=== PATIENT | female | born 1930 | race Caucasian/White ===

== ENCOUNTER → 2017-01-25 13:34 | Outpatient (CLI) | payer MEDICARE, OTHER ==
[2015-10-27 08:17] VITALS: BMI 21.0
[~2017-01-25 13:34] MED LIST: BABY ASPIRIN81 MG PO; BUMETANIDE0.5 MG PO; CARDURA2 MG PO; CEFUROXIME250 MG PO; CENTRUM SILVER1 TA1 PO; COLACE100 MG PO; CORDARONE200 MG PO; FERROUS SULFAT140 MG PO; K-TAB10 MEQ PO; KLOR-CON 1010 MEQ PO; LEVOTHROID50 MCG PO; LEVOTHYROXINE100 MCG PO; LEVOTHYROXINE112 MCG PO; LISINOPRIL5 MG PO; LORTAB 5/500 TA1 TA2 PO; MIRAPEX0.25 MG PO; MIRAPEX1 MG PO; MOBIC7.5 MG PO; MODURETIC 5/501 TAB PO; NEURONTIN 100100 MG PO; NITROSTAT0.4 MG SL; OMEPRAZOLE40 MG PO; OS-CAL500 MG PO; PACERONE200 MG PO; PRILOSEC20 MG PO; REGLAN10 MG PO; STOOL SOFTENER100 M1 PO; TOPROL XL25 MG PO; VIACTIV SOFT C1 EACH PO; VITAMIN D31000 UNIT PO; VITAMIN D3400 UNI1; ZOCOR40 MG PO
== END | disposition home or self-care (01) ==
LOC: D.US 13:30
DX: R60.0 Localized edema (principal)

== ENCOUNTER 2017-02-06 13:15 | Inpatient (IN) | payer MEDICARE, OTHER ==
[~2017-02-06] VITALS: Ht 157.5 cm; Wt 56.7 kg
--- NOTE | ~2017-02-06 | DS ---
PATIENT:CAITLIN CALIX :32 MEDICAL RECORD: [id number] DISCHARGE SUMMARY ADMISSION DATE: 02/06/17 DISCHARGE DATE: 02/10/17 DISCHARGE DIAGNOSES: 1. Cellulitis, right lower extremity: 1. Lymphedema. 2. Paroxysmal atrial fibrillation. 3. Hypertension. 4. Hypotension. HOSPITAL COURSE: An 86-year-old female with past history of chronic lymphedema due to thoracic scoliosis and nonambulatory state. She has been treated as outpatient with Cipro for edema and erythema on her right ankle that began to progress despite antibiotic therapy. She was admitted to the hospital, placed on IV Rocephin and vancomycin with appropriate levels per pharmacy. The patient has gradually improved. Erythema is almost totally resolved at this time. She will be discharged today in improved condition on oral cefuroxime with home health care and then keep her leg elevated when sitting as well as well moisturized. DISCHARGE MEDICATIONS: Cefuroxime axetil 250 mg p.o. b.i.d. for 10 days, Cardura 2 mg p.o. b.i.d., hydrocodone 5/500 one q.6 hours p.r.n. pain, lisinopril 5 mg p.o. daily, Zocor 40 mg at bedtime, Bumex 0.5 mg p.o. q.a.m., K-Tab 10 mEq p.o. daily, Reglan 10 mg before meals t.i.d., Pacerone 200 mg at bedtime, vitamin D 1,000 units p.o. daily, docusate sodium 100 mg p.o. b.i.d., ferrous sulfate ER 140 mg p.o. daily, Nitrostat 0.4 sublingual p.r.n. chest pains, Levothyroxine sodium 0.112 mg p.o. on Monday, Monday, and Monday and 0.1 mg on Monday, Monday and Monday, Centrum Silver 1 tab p.o. daily, calcium carbonate with vitamin D 500 mg p.o. b.i.d. and Mirapex 1 mg p.o. at bedtime. ACTIVITY: Progress as tolerated. Keep leg elevated when sitting, home health for med compliance and wound care. Return to clinic to see me in 1 week with BMP. DIET: Low cholesterol. TRANSINT:[id number] Voice Confirmation ID: [id number] DOCUMENT ID: [id number] PERCY HINKLE MD CC: [id number] DICTATION DATE: 02/10/1739 CAR REFINISHER: 02/11/17 0114 DIS IN 02/10/17 [facility] [address] [place] [address]
[~2017-02-06 13:15] MED LIST changes: -CEFUROXIME250 MG PO; -CENTRUM SILVER1 TA1 PO; -COLACE100 MG PO; -CORDARONE200 MG PO; -KLOR-CON 1010 MEQ PO; -LEVOTHYROXINE100 MCG PO; -LEVOTHYROXINE112 MCG PO; -MIRAPEX1 MG PO; -OMEPRAZOLE40 MG PO; -VIACTIV SOFT C1 EACH PO
--- NOTE | 2017-02-06 14:38 | NUR ---
ATTEMPTED TO START IV TO RIGHT ARM X'S 2 UNSUCCESSFUL ATTEMPTS.
[2017-02-06 15:24] LABS: APPEARANCE CLEAR (CLEAR); BILIRUBIN NEGATIVE (NEGATIVE); COLOR YELLOW (YELLOW); GLUCOSE NEGATIVE (NEGATIVE); KETONE NEGATIVE (NEGATIVE); LEUKOCYTE ESTERASE 2+ (NEGATIVE); NITRITE NEGATIVE (NEGATIVE); PROTEIN NEGATIVE (NEGATIVE); UROBILINOGEN NORMAL (NORMAL)
[2017-02-06 15:25] LABS: BACTERIA FEW /hpf (NONE SEEN); EPITHELIAL CELLS 0-5 /hpf (0-5); RED CELLS - URINE 0-5 /hpf (0-5); WHITE CELLS - URINE >50 /hpf (0-5)
[2017-02-06 15:44] VITALS: BP 145/78; BMI 22.9
[2017-02-06 17:40] LABS: BASOPHILS 0.3 % (0.0-2.0); EOSINOPHILS 1.2 % (0-7); HEMATOCRIT 32.9 % (36.0-48.0); HEMOGLOBIN 10.7 g/dL (12-16); IMMATURE GRANULOCYTES 0.2 % (0-5); LYMPHOCYTES 15.5 % (15-50); MCH 29.2 pg (26.0-34.0); MCHC 32.5 g/dL (31.0-37.0); MCV 89.6 fL (80.0-100.0); MEAN PLATELET VOLUME 10.1 fL (7.4-10.4); MONOCYTES 10.3 % (2-11); NEUTROPHILS 72.5 % (40-80); PLATELET COUNT 171 10x3/uL (130-400); RBC 3.67 10x6/uL (4.00-5.40); WBC 6.6 10x3/uL (4.8-10.8)
[2017-02-06 17:44] LABS: ALBUMIN 3.1 g/dL (3.4-5.0); ANION GAP 9.9 mmol/L (8-16); BILIRUBIN - TOTAL 0.4 mg/dL (0.2-1.3); CALCIUM 9.2 mg/dL (8.5-10.1); CARBON DIOXIDE 32.2 mmol/L (21.0-32.0); CREATININE - SERUM 1.1 mg/dL (0.6-1.3); POTASSIUM - SERUM 3.1 mmol/L (3.5-5.1); PROTEIN - SERUM 5.6 g/dL (6.4-8.2)
[2017-02-06] MEDS ORDERED: LEVOTHYROXINE100 MCG PO (17:52)
[2017-02-06] MEDS ORDERED: LEVOTHYROXINE112 MCG PO (17:52)
[2017-02-06] MEDS ORDERED: OMEPRAZOLE40 MG PO (17:56)
[2017-02-06] MEDS ORDERED: KLOR-CON 1010 MEQ PO (17:57)
[2017-02-06] MEDS ORDERED: CENTRUM SILVER1 TA1 PO (17:59)
[2017-02-06] MEDS ORDERED: CORDARONE200 MG PO (18:01)
[2017-02-06] MEDS ORDERED: VIACTIV SOFT C1 EACH PO (18:02)
[2017-02-06] MEDS ORDERED: COLACE100 MG PO (18:03)
[2017-02-06] MEDS ORDERED: MIRAPEX1 MG PO (18:06)
[2017-02-06 18:58] LABS: ERYTHROCYTE SEDIMENTATION RATE 23 mm/hr (0-42)
[2017-02-06 20:00] VITALS: BP 149/54
--- NOTE | 2017-02-06 21:31 | NUR ---
PATIENT RESTING IN BED. ALERT AND ORIENTED. NO SIGNS OF DISTRESS NOTED. SCHEDULED MEDS GIVEN. SHIFT ASSESSMENT COMPLETED. DENIES ANY NEEDS AT THIS TIME. BED LOW. CALL LIGHT IN REACH
[2017-02-07] VITALS (7 sets, daily range): BP systolic 79–151; BP diastolic 36–69; Ht 157.5 cm; Wt 56.7 kg
--- NOTE | 2017-02-07 02:00 | NUR ---
PT IN BED WITH NO DISTRESS NOTED. RESPIRATIONS EVEN AND UNLABORED. SIDE RAILS X 2. BED LOW. CALL LIGHT IN REACH.
--- NOTE | 2017-02-07 07:35 | HP ---
PATIENT: CAITLIN CALIX MEDICAL RECORD: [id number] ACCOUNT: [id number] LOCATION:D.[facility] : 32 ADMISSION DATE: 02/06/17 HISTORY AND PHYSICAL EXAMINATION REASON FOR ADMISSION: Cellulitis, right lower extremity, not responding to outpatient therapy. HISTORY OF PRESENT ILLNESS: The patient is an 86-year-old female, who is wheelchair bound due to severe scoliosis and low back pain. She states that she had been having increasing edema in her right lower extremity recently. She has chronic left lower extremity edema. She also has a past history of MRSA wound over her right malleolus and eventually healed. Nonetheless for about 4 weeks, she has had trouble with increasing erythema here. She was seen by Dr. Rushing on 01/17/2017, diagnosed with cellulitis and was placed on cefuroxime axetil ____ mg p.o. b.i.d. She is compliant on that medication, but did not show much improvement and so admitted a week later on January 29. She said she had more swelling at that point, but redness is somewhat better. She underwent a venous Doppler outpatient that showed no evidence of DVT. She came back to the office today because of continuing discomfort and erythema above the ankle. She states that she had maybe had a little less edema. Denies chest pain or shortness of breath. She has a history of microvascular disease on her lower extremities. She underwent an arteriogram with runoff by Dr. Lord a year ago and her arterial system did not show any significant proximal or large vessel disease, but small vessel disease. The patient states that Dr. Lord told her he could help her. She denies fever. PAST MEDICAL HISTORY: Scoliosis with chronic low back pain and stenosis. She was admitted for hyponatremia and flu syndrome a year ago, MRSA right malleolar ulcer remotely, essential hypertension, hyperlipidemia, hypothyroidism, history of esophageal stricture, benign; history of gastric polyps removed in September 2016, osteoporosis, CAD, osteoarthritis, neuropathy of lower extremities, remote tobacco use, alopecia, anemia of chronic disease, history of benign carcinoid neoplasm, hiatal hernia, peripheral neuropathy, history of atrial fibrillation, mild small vessel peripheral vascular disease. PAST SURGICAL HISTORY: Appendectomy, hysterectomy, partial thyroidectomy, esophageal dilatation, cardiac catheterization in 2004 with 65% stenosis treated medically, cholecystectomy, Black fundoplication, sinus surgery. ALLERGIES: LASIX CAUSING HYPONATREMIA AND HYPOKALEMIA, AMOXICILLIN CAUSING RASH, ALSO PROMETHAZINE CAUSING NAUSEA AND VOMITING AND SULFA CAUSING A RASH. FAMILY HISTORY: Father had heart disease and kidney disease. Mother had Parkinson's. Brother with heart disease. Son at 38 with pulmonary hypertension due to genetic heart and lung problems. SOCIAL HISTORY: Nonsmoker, does not use alcohol. Lives independently at home, but requires a motorized heidi chair typed to transport herself. MEDICATIONS: Hydrocodone 10/325 one q.6 hours for severe pain, most recently has been on Cipro 250 mg p.o. b.i.d., levothyroxine 0.112 ____ p.o. Monday, , Monday, Monday, 0.1 mg p.o. other days; Zofran 2 mg a.c. meals, doxazosin 2 mg p.o. b.i.d., Toprol-XL 25 mg a day, simvastatin 40 mg at h.s., Prilosec 20 mg a day, MiraLax 17 grams p.o. daily, meclizine 12.5 mg t.i.d. HISTORY AND PHYSICAL [id number] PLUMLEE,CAITLIN p.r.n. dizziness, Maximum D3 vitamin 10,000 units p.o. weekly, lisinopril 5 mg p.o. daily, Flonase nasal spray 2 nasal sprays each nostril daily, Centrum Silver 1 daily. REVIEW OF SYSTEMS: CONSTITUTIONAL: No fever or fatigue. HEENT: No recent new visual change, sinus congestion, or sore throat. She does wear glasses to read. RESPIRATORY: No SOB or cough. CARDIAC: No exertional chest pain, claudication, chronic peripheral edema in lower extremities, right greater than left; however, she is not very ambulatory. GASTROINTESTINAL: Intermittent nausea, response to Reglan. She had no recent vomiting or change in stools. GENITOURINARY: Mild stress incontinence. No dysuria. GYNECOLOGIC: No vaginal bleeding. ENDOCRINE: Denies polyuria, polydipsia, heat or cold intolerance. NEUROLOGIC: No history of stroke, TIA, or vascular headaches. She does have trouble with chronic lower leg discomfort, neuropathy symptoms in both feet and legs below the knee. INTEGUMENT: [place], warm, tender, rash on her right lower extremity from the ankle to above a sock line. It blanches easily. No skin compromise is otherwise noted to skin integrity. No evidence of a bite or wound. Distal pulses are difficult to palpate. She has 2-3+ bilateral lower extremity edema, right greater than left. PSYCHIATRIC: Denies depress mood. PHYSICAL EXAMINATION: VITAL SIGNS: Temperature is 99 degrees Fahrenheit, weight is 124 pounds, height 57 inches, blood pressure 120/84, heart rate 80 and regular. BMI of 28. HEENT: Normocephalic. Eyes are clear. NECK: No bruits or masses. CHEST: Clear. HEART: Regular rate and rhythm. BREASTS: Not examined. ABDOMEN: Soft and nontender. BACK: Shows Thoracolumbar scoliosis, marked degree, right greater than left. She is sitting in a wheelchair. PELVIC: Not performed. EXTREMITIES: She has 2-3+ bilateral lower extremity below the knees, right greater than left. She has blanching erythema encompassing the right lower extremity from ____ above the malleolus to include the ankle. It is tender to touch. No break in the skin integrity is appreciated. Distal pulses are difficult to palpate. ASSESSMENT: 1. Cellulitis, right lower extremity, not respond to oral medications. 2. Small vessel peripheral vascular disease with aortofemoral runoff a year ago showing no stentable lesions. History of coronary artery disease, PAF, hypertension, hyperlipidemia, gastric polyp, gastroesophageal reflux disease, alopecia. History of chronic anemia of chronic disease, history of benign carcinoid tumor, thoracogenic scoliosis. PLAN: The patient will be admitted for IV antibiotics including, but not limited to vancomycin. She has multiple drug allergies including amoxicillin, codeine, LASIX, Lyrica, Norvasc, promethazine, sulfa and Vibramycin. We will HISTORY AND PHYSICAL [id number] CAITLIN CALIX check arterial Dopplers. If she does not improved, we will have ID consult concerning antibiotic choices. TRANSINT:[id number] Voice Confirmation ID: [id number] DOCUMENT ID: [id number] PERCY HINKLE MD at 0735 CC: [id number] DICTATION DATE: 02/06/17 1327 LANDSCAPE HORTICULTURE INSTRUCTOR: 02/06/[address] [facility] [address] [place] [address]
--- NOTE | 2017-02-07 11:39 | NUR ---
Patient Name: CAITLIN CALIX Admission Status: Urgent Accout number: [id number] Admission Date: 02-06-2017 : 1930 Admission Diagnosis: Attending: DREW Current LOS: 1 Anticipated DC Date: 02-10-2017 Planned Disposition: Home with Home Health Primary Insurance: MEDICARE A & B Discharge Planning Comments: CM MET WITH PATIENT REGARDING D/C NEEDS AND PLANS. PATIENTS NIECE (KRISTOPHER) WILL DRIVE PATIENT HOME AT DISCHARGE. PATIENT STATED SHE LIVES ALONE BUT HAS A PRIVATE CAREGIVER (VIVIAN) 6 DAYS A WEEK FOR 6 HRS A DAY AND IS CURRENT WITH [facility] Written. PATIENT STATED HER CAREGIVERS HELP HER WITH HER BATH AND DRESSING. PATIENT HAS NO DME EXCEPT HER WHEELCHAIR WHICH SHE USES EVERYDAY. PATIENTS PCP IS DR. HINKLE AND PHARMACY IS [facility]. CM WILL CONTINUE TO FOLLOW PATIENT WITH D/C NEEDS AND PLANS. PCP DR. HINKLE [facility]- [phone] [facility] [phone] KRISTOPHER MICHELLE ([place]ADE[place]) [phone] Puzzle Assembler: Josefina Rojo Is the patient Alert and Oriented? Yes 0 * How many steps to enter\exit or inside your home? 0 0 * PCP DR. HINKLE 0 * Pharmacy [facility] 0 * Preadmission Environment Home Alone 0 * ADLs Partial Dependent 0 * Partial ADLs (Assistance needed) Bathing Dressing 0 * Equipment None 0 * List name and contact numbers for known caregivers / representatives who currently or will assist patient after discharge: KRISTOPHER DoanNIKELLY) [phone] 0 * Community resources currently utilized None 0 * Additional services required to return to the preadmission environment? Yes 0 * Can the patient safely return to the preadmission environment? Yes 0 * Has this patient been hospitalized within the prior 30 days at any hospital? No 0 Grand Total: 0
--- NOTE | 2017-02-07 13:36 | NUR ---
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 PT STATES SHE HAS HAD IT FOR MANY YEARS, HAS BEEN TO WOUND CLINIC (DR. ROCK) FOR TREATMENT AND NOW HAS HOME HEALTH OUT ON [place] TO DO DRESSING CHANGES. PTS LEG IS RED AND SCALY/DRY AND THE WOUND IS WET/MOIST AND RED. SHE IS UNSURE OF THE TREATMENT SHE IS RECEIVING FOR DRESSING CHANGES. GENTLY CLEANSED WITH WOUND REPAIRER TYPEWRITER AND PATTED DRY. COVERED WOUND WITH ADAPTIC AND PLACED MAXORB AG OVER IT. PROTECTED WITH 4X4S, SECURED WITH KERLIX. RIGHT LOWER EXTREMITY IS RED ALSO, BUT NO SKIN BREAKDOWN NOTED. PT TOLERATED WELL. WILL CONTINUE TO MONITOR.
--- NOTE | 2017-02-07 13:58 | NUR ---
PATIENT IS IN BED. HOB 45 DEGREES. NO SIGNS OF DISTRESS NOTED. PATIENT'S TRUST MANAGER ASSISTANT IS IN ROOM. PATIENT STATED "I NEED YOU TO EMPTY MY BEDSIDE COMMODE, I HAD DIARRHEA." CHECKED BEDSIDE COMMODE, THERE IS A LARGE AMOUNT OF BROWN STOOL, PUDDING CONSISTENCY. EMPTIED AND CLEANED OUT BEDSIDE COMMODE. PATIENT DENIES FURTHER NEEDS AT THIS TIME.
--- NOTE | 2017-02-07 15:56 | NUR ---
CALLED 'S OFFICE, SPOKE WITH KEYUR, HIS NURSE. LEFT A MESSAGE WITH HER FOR TO NOTIFY HIM OF PATIENT'S LOW BP AND PATIENT IS REQUESTING SOMETHING FOR RESTLESS LEGS.
--- NOTE | 2017-02-07 20:10 | NUR ---
PATIENT SITTING UP IN BED. ALERT AND ORIENTED. SCHEDULED MEDS GIVEN. SHIFT ASSESSMENT COMPLETED. ASSISTED TO BEDSIDE COMMODE AND WITH ORAL CARE. NO OTHER NEEDS VOICED AT THIS TIME. BED LOW. CALL LIGHT IN REACH.
[2017-02-08] VITALS: BP 108/48
--- NOTE | 2017-02-08 02:00 | NUR ---
PT IN BED WITH NO DISTRESS. RESPIRATIONS EVEN AND UNLABORED. SIDE RAILS X 2. BED LOW. CALL LIGHT IN REACH.
[2017-02-08 04:00] VITALS: BP 105/50
[2017-02-08 05:35] LABS: BASOPHILS 0.3 % (0.0-2.0); EOSINOPHILS 1.5 % (0-7); HEMATOCRIT 33.2 % (36.0-48.0); HEMOGLOBIN 10.2 g/dL (12-16); IMMATURE GRANULOCYTES 0.1 % (0-5); LYMPHOCYTES 19.6 % (15-50); MCH 28.1 pg (26.0-34.0); MCHC 30.7 g/dL (31.0-37.0); MCV 91.5 fL (80.0-100.0); MEAN PLATELET VOLUME 10.5 fL (7.4-10.4); NEUTROPHILS 69.5 % (40-80); RBC 3.63 10x6/uL (4.00-5.40); RDW 15.3 % (11.5-14.5); WBC 6.8 10x3/uL (4.8-10.8)
[2017-02-08 05:47] LABS: PLATELET COUNT 210 10x3/uL (130-400)
[2017-02-08 06:04] LABS: CALCIUM 8.5 mg/dL (8.5-10.1); CARBON DIOXIDE 27.6 mmol/L (21.0-32.0)
[2017-02-08 06:05] LABS: CREATININE - SERUM 1.4 mg/dL (0.6-1.3)
[2017-02-08 06:26] LABS: ANION GAP 12.8 mmol/L (8-16); POTASSIUM - SERUM 3.4 mmol/L (3.5-5.1)
[2017-02-08 08:15] VITALS: BP 127/51
--- NOTE | 2017-02-08 09:10 | NUR ---
PATIENT IS AWAKE AND ALERT, SHE HAD A LOW BP, HELP BP MEDS. PATIENT IS UP ON BSC, TOILETING.
--- NOTE | 2017-02-08 11:01 | NUR ---
PATIENT C/O BACK PAIN SHE HAS SEVERE SCOLIOSIS. SHE ASKED FOR A NORCO 5/325 MG PO.
--- NOTE | 2017-02-08 11:41 | NUR ---
PATIENT IS SLEEPING IN BED NO C/O PAIN.
[2017-02-08 12:11] VITALS: BP 124/43
[2017-02-08 15:23] VITALS: BP 107/42
--- NOTE | 2017-02-08 15:39 | NUR ---
PATIENT C/O ITCHING IN HER HEAD CALLED DR. HINKLE RECEIVED BENADRYL ORDER, SEE MAR, PATIENT DID RECEIVE NOW.
--- NOTE | 2017-02-08 16:30 | NUR ---
PATIENT RESTING NO C/O ITCHING AT THIS TIME.
--- NOTE | 2017-02-08 16:48 | NUR ---
PATIENT C/O RESTLESS LEGS AND REQUESTS A MIRAPEX NOW. DID PROVIDE, PATIENT SAYS SHE DID NOT THINK "THAT LITTLE PILL WILL DO ANYTHING".
--- NOTE | 2017-02-08 18:00 | NUR ---
PATIENT DID ASK IF PT WAS GOING TO COME, SHE SAYS SHE SITS IN HER W/C ALL DAY, SHE IS NOT USE TO THE BED. ASKED HER IF I COULD HELP HER, SHE SAID SHE DID NOT THINK SO BECAUSE SHE CAN NOT STAND AT THE TIME. STAFF ASSISTS TO TOILET. PATIENT SAYS SHE WILL TALK TO MD AGAIN TOMORROW ABOUT PT HELP.
--- NOTE | 2017-02-08 19:00 | NUR ---
PATIENT SITTING UP IN WHEELCHAIR VISITING WITH NIECE. AAOX4. RR EVEN AND UNLABORED. 0 S/S OF DISTRESS. STATES PAIN IS AN 8/10. IV TO RIGHT FA S/L WITH NO REDNESS OR SWELLING. DRESSING TO LLE CDI. CALL LIGHT WITHIN REACH.
[2017-02-08 20:00] VITALS: BP 140/52
--- NOTE | 2017-02-08 20:40 | NUR ---
NORCO GIVEN FOR PAIN. WILL REASSESS.
--- NOTE | 2017-02-08 22:05 | NUR ---
NIGHTTIME MEDS GIVEN. ORAL CARE COMPLETE. ATTEPTED TO GET PATIENT BACK INTO BED, BUT SHE STATED SHE WANTED TO STAY IN HER CHAIR.
[2017-02-09] VITALS: BP 148/55
[2017-02-09 03:00] VITALS: BP 151/55
--- NOTE | 2017-02-09 03:30 | NUR ---
PATIENT C/O RESTLESS LEGS. PRN MIRAPEX GIVEN. PATIENT STILL IN CHAIR. STATES SHE DOES NOT WANT TO GET BACK IN BED BECAUSE SHE HAS "SLEPT SO WELL."
[2017-02-09 07:46] VITALS: BP 176/62
--- NOTE | 2017-02-09 08:13 | NUR ---
SCHEDULED MEDICATIONS ADMINISTERED AT THIS TIME WITHOUT DIFFICULTY. UP IN HOVER ROUND WHEEL CHAIR AT THIS TIME. DENIES NEEDS AT THIS TIME. ASSESSMENT PERFORMED AT THIS TIME. CALL LIGHT IN REACH, WILL CONTINUE WITH PLAN OF CARE.
--- NOTE | 2017-02-09 11:40 | NUR ---
SCHEDULED REGLAN ADMINISTERED AT THIS TIME. SITTER AT BEDSIDE. ORDERED PT CHOCOLATE ENSURE WITH MEALS PER HER REQUSEST. REMAINS UP IN WHEELCHAIR. DENIES FURTHER NEEDS AT THIS TIME. CALL LIGHT IN REACH, WILL CONTINUE WITH PLAN OF CARE.
[2017-02-09 12:12] VITALS: BP 167/51
--- NOTE | 2017-02-09 15:22 | NUR ---
REHAB PRESCREENING Rehab referral received and chart reviewed. This patient has not had a PT evaluation and there is not one ordered. Rehab will contact case management and continue to follow this patient for medical need for IRF and PT evaluation. Thank you for this referral! Dayanna Mora, [employer] Inpatient Mortgage Processing Clerk
--- NOTE | 2017-02-09 15:56 | NUR ---
Rehab Note- Spoke with Ms Felipe concerning acute rehab screen for possible rehab stay prior to going home. The patient deffered at this time stating she has a caregiver at home and doesn't believe she needs rehab prior to discharge home. Thank you for this referral! Melanie Dmuas RN Clinical Liaison, [facility] Rehab/[facility]
[2017-02-09 16:29] VITALS: BP 137/42
[2017-02-09 20:00] VITALS: BP 130/52
--- NOTE | 2017-02-09 21:36 | NUR ---
PATIENT SITTING UP IN [facility]. ALERT AND ORIENTED. NO SIGNS OF DISTRESS NOTED. SCHEDULED MEDS GIVEN. SHIFT ASSESSMENT COMPLETED. ASSISTED TO BSC. NO OTHER NEEDS VOICED AT THIS TIME. BED LOW. CALL LIGHT IN REACH
--- NOTE | 2017-02-09 21:56 | NUR ---
sitting up in wheelchair watching tv, denies pain or needs, cl in reach
[2017-02-10] VITALS: BP 182/65
[2017-02-10 04:00] VITALS: BP 175/60
[2017-02-10 06:38] LABS: ANION GAP 11.7 mmol/L (8-16); CALCIUM 9.3 mg/dL (8.5-10.1); CARBON DIOXIDE 27.2 mmol/L (21.0-32.0); CREATININE - SERUM 1.1 mg/dL (0.6-1.3); POTASSIUM - SERUM 3.9 mmol/L (3.5-5.1)
[2017-02-10] MEDS ORDERED: CEFUROXIME250 MG PO (07:36)
[2017-02-10 07:52] VITALS: BP 175/66
--- NOTE | 2017-02-10 07:55 | NUR ---
PATIENT IS SITTING IN ELECTRONIC WHEELCHAIR. PATIENT DENIES NEEDS. CALL LIGHT IN REACH.
--- NOTE | 2017-02-10 08:27 | NUR ---
CM REASSESSMENT NOTE: PATIENT IS DISCHARGING HOME TODAY-CAREGIVER (VIVIAN) DRIVING PATIENT HOME. PATIENT IS CURRENT WITH [facility] PATIENT HAD NO OTHER NEEDS FOR DISCHARGE.
--- NOTE | 2017-02-10 10:45 | NUR ---
PATIETNT REFUSED TO ALLOW ME TO CHANGE DRESSING TO LEFT LEG. PATIENT STATED "HOME HEALTH SAID THEY WILL BE OUT TOMORROW TO DO IT. AND WE HAVE A TIME SCHEDULE WE HAVE TO GET GOING SO I DO NOT NEED YOU TO DO IT."
--- NOTE | 2017-02-10 10:45 | NUR ---
DISCHARGE INSTRUCTIONS COMPLETED WITH PATIENT AND PATIENT'S CAREGIVER. BOTH VERBALIZED UNDERSTANDING AND DENIES QUESTIONS. D/C IV WITH CATH INTACT.
--- NOTE | 2017-02-10 10:51 | NUR ---
PATIENT LEFT VIA WHEELCHAIR WITH CAREGIVER
== END 2017-02-10 10:51 | disposition home health service (06) | DRG 603 ==
LOC: D.MS 13:15
PROVIDERS: ADMIT Family Medicine
DX: L03.115 Cellulitis of right lower limb (principal); M41.34 Thoracogenic scoliosis, thoracic region; Z99.3 Dependence on wheelchair; I73.9 Peripheral vascular disease, unspecified; I25.10 Atherosclerotic heart disease of native coronary artery without angina pectoris; I10 Essential (primary) hypertension; I48.0 Paroxysmal atrial fibrillation; E78.5 Hyperlipidemia, unspecified; K21.9 Gastro-esophageal reflux disease without esophagitis; I95.9 Hypotension, unspecified

== ENCOUNTER 2017-06-05 15:09 | Inpatient (IN) | payer MEDICARE, OTHER ==
[~2017-06-05] VITALS: Ht 157.5 cm; Wt 53.5 kg
[~2017-06-05 15:09] MED LIST changes: +CEFUROXIME250 MG PO; +CENTRUM SILVER1 TA1 PO; +COLACE100 MG PO; +CORDARONE200 MG PO; +KLOR-CON 1010 MEQ PO; +LEVOTHYROXINE100 MCG PO; +LEVOTHYROXINE112 MCG PO; +MIRAPEX1 MG PO; +OMEPRAZOLE40 MG PO; +VIACTIV SOFT C1 EACH PO
--- NOTE | 2017-06-05 15:40 | NUR ---
PT ARRIVED VIA MOTORIZED CHAIR. ALERT AND ORIENTED. ABLE TO ANSWER HEALTH HISTORY QUESTIONS TO THE BEST OF HER KNOWLEDGE. HAD DRESSING ON LEFT LEG. DRESSING INTACT AND CLEAN. RED AREA NOTED ON LOWER BACK. PT HAS SCOLIOSIS. NEEDS ASSISTANCE FROM CHAIR TO BED. VITAL SIGNS 161/72 HR 64, O2 97% ON ROOM AIR. PT STATES OF HAVING INCONINENT EPISODES. SEE REST OF ASSESSMENT IN ASSESSMENT CHART.
[2017-06-05 16:00] VITALS: BP 161/72; BMI 21.6
[2017-06-05 17:49] LABS: CALCIUM 9.3 mg/dL (8.5-10.1); CARBON DIOXIDE 33.4 mmol/L (21.0-32.0); CREATININE - SERUM 1.1 mg/dL (0.6-1.3); POTASSIUM - SERUM 3.4 mmol/L (3.5-5.1)
[2017-06-05 18:01] LABS: BASOPHILS 0.2 % (0-2); HEMATOCRIT 36.6 % (36.0-48.0); HEMOGLOBIN 11.8 g/dL (12-16); IMMATURE GRANULOCYTES 0.3 % (0-5); LYMPHOCYTES 7.3 % (15-50); MCH 28.4 pg (26.0-34.0); MCHC 32.2 g/dL (31.0-37.0); MCV 88.2 fL (80.0-100.0); MEAN PLATELET VOLUME 10.6 fL (7.4-10.4); MONOCYTES 8.6 % (2-11); NEUTROPHILS 82.6 % (40-80); PLATELET COUNT 181 10x3/uL (130-400); RBC 4.15 10x6/uL (4.00-5.40); RDW 15.5 % (11.5-14.5); WBC 9.6 10x3/uL (4.8-10.8)
--- NOTE | 2017-06-05 19:20 | NUR ---
PT IS SITTING IN ELECTRICALLY POWERED CHAIR, STATED USUALLY SITS ALL DAY IN CHAIR AT HOME AND SLEEPS IN IT WELL DUE TO BACK. PT HAS SCHOLIOSIS AND SAYS CAUSES HER BACK TO HURT. SL IV, PT RT LEG IS RED, SKIN IS TIGHT AND A LITTLE EDEMA PRESENT. BOTH LEGS ELEVATED ON BED. BED IS IN LOW POSITION, CALL LIGHT IN REACH
[2017-06-05 20:00] VITALS: BP 149/66
[2017-06-06] VITALS (7 sets, daily range): BP systolic 101–146; BP diastolic 41–66; Ht 157.5 cm; Wt 53.5 kg
--- NOTE | 2017-06-06 02:00 | NUR ---
PT IN BED WITH NO DISTRESS. RESPIRATIONS EVEN AND UNLABORED. ISOLATION PRECAUTIONS IN PLACE. SIDE RAILS X 2. BED IS LOW. CALL LIGHT IN REACH.
--- NOTE | 2017-06-06 06:01 | NUR ---
PT IS NOT FEELING WELL TODAY, C/O HEADACHE AND NAUSEA, PT HAS BLEEN BLOWING NOSE AND COUGHING ALL MORNING WITH PRODUCTIVE THICK GREEN PHLEGM, REQUESTED REGLAN FOR STOMACH. UA SAMPLE NEEDED PUT SIGN UP, BED IN LOW POSITION, CALL LIGHT IN REACH
--- NOTE | 2017-06-06 07:00 | NUR ---
PT REC'D FROM [facility]. RESTING IN BED WITH EYES CLOSED. EASILY AROUSED. AAOX4. RATING CURRENT PAIN IN BACK /10. WILL ADMINISTER PAIN MEDICATION AND REASSESS. REGULAR HEART RATE AND RHYTHM. LUNG SOUNDS CLEAR AND EQUAL BILAT. BOWEL SOUNDS ACTIVE X4 QUADS. SKIN TO LOWER BACK REDENED AT MEÑO PROMINENCES. BLANCHABLE HOWEVER. SPINE DISFIGURED. PIV TO R WRIST FREE OF REDNESS AND SWELLING. DRESSING TO LLE HAS OLD DRAINAGE TO OUTSIDE. PT STATES SHE WANTS TO WAIT FOR THE NURSE THAT IS GOING TO CHANGE IT TO SEE HER. RLE RED AND WARM TO TOUCH. BED LOW, CALL LIGHT IN REACH, DENIES NEEDS. CPOC.
--- NOTE | 2017-06-06 07:41 | HP ---
PATIENT: CAITLIN CALIX MEDICAL RECORD: [id number] ACCOUNT: [id number] LOCATION:D.[id number] : 31 ADMISSION DATE: 06/05/17 HISTORY AND PHYSICAL EXAMINATION REASON FOR ADMISSION: Recurrent cellulitis, left lower extremity, failing outpatient therapy. HISTORY OF PRESENT ILLNESS: An 86-year-old female with history of peripheral vascular disease. She is being treated in the wound clinic at [facility] by Dr. Abebe on oral clindamycin and topical dressing changes to a left lower extremity lesion cellulitis. He called me last week saying it was not improving and that he wanted her to be admitted to the hospital, but she deferred to the weekend. She came back this morning with a warm, red leg from the mid calf down to the anterior lateral decubitus. She denied overt fever, but she had some chills. For this reason, she is now being admitted. She was admitted in January of this year for cellulitis of the right lower extremity that responded to vancomycin and Rocephin. PAST MEDICAL HISTORY: Recurrent bilateral malleolar ulcers with cellulitis, most recently on the right in January 2017. Severe thoracolumbar lumbar scoliosis with chronic low back pain and lumbar canal stenosis. She is admitted for hyponatremia and flu in 2016. MRSA, right malleolar ulcer remotely; essential hypertension; hyperlipidemia; hypothyroidism; history of esophageal stricture, benign; history of gastric polyps removed in October 07; CAD; osteoporosis; osteoarthritis; neuropathy of lower extremities; remote tobacco use; alopecia; anemia of chronic disease, carcinoid neoplasm; hiatal hernia; atrial fibrillation. She has small vessel peripheral vascular disease, followed by Dr. Lord. PAST SURGICAL HISTORY: Partial thyroidectomy, esophageal dilatation, cardiac catheterization in 2004, 65% stenosis treated medically, cholecystectomy, Black fundoplication, sinus surgery, appendectomy, hysterectomy. ALLERGIES: LASIX CAUSING LOW POTASSIUM AND LOW SODIUM, AMOXICILLIN CAUSING RASH, PROMETHAZINE CAUSING NAUSEA AND VOMITING AND SULFA CAUSING RASH. FAMILY HISTORY: Her parents are . Mother had Parkinson's. Brother with heart disease. Father with heart disease and kidney disease. Son at 38 with pulmonary hypertension due to genetic heart and lung problems. SOCIAL HISTORY: Remote smoker, does not use alcohol. Lives independently with 24-hour care and a motorized heidi chair for locomotion. MEDICATIONS: Hydrocodone 5/325 one q.6 hours for pain; levothyroxine 0.112 mg Monday, , Monday, Monday and 0.1 mg other days; doxazosin 2 mg p.o. b.i.d.; simvastatin 40 mg at h.s.; Prilosec 20 mg a day; MiraLax 17 g p.o. daily; vitamin D3 of 10,000 units p.o. weekly; lisinopril 5 mg p.o. daily; Flonase nasal spray 2 sprays each nostril daily; Centrum Silver 1 daily; calcium carbonate with vitamin D 500 mg p.o. b.i.d.; recently on clindamycin tablet dose unknown t.i.d. REVIEW OF SYSTEMS: GENERAL: Fatigue without fever, questionable chills. HEENT: No recent visual change, sore throat. She wears glasses to read. HISTORY AND PHYSICAL [id number] PLUMLEETIFFANIECAITLIN RESPIRATORY: No severe cough. CARDIAC: No exertional chest pain, claudication, or edema. There is chronic peripheral edema in both the lower extremities. MUSCULOSKELETAL: Her left leg has been more swollen than right most recently. She is essentially nonambulatory. GASTROINTESTINAL: No nausea, vomiting, change in stools or blood per rectum. GENITOURINARY: Mild stress incontinence. GYNECOLOGIC: No vaginal bleeding, post-menopausal, post-hysterectomy. ENDOCRINE: Denies heat or cold intolerances, polyuria or polydipsia. NEUROLOGIC: No history of stroke or TIA. She does have trouble with chronic lower leg neuropathy symptoms in the feet and legs below her knees. INTEGUMENT: Complains of warm, swollen left lower extremity mid calf into her ankle. She says it is warm to the touch and has a nonhealing ulcer. SKIN: As mentioned above. PHYSICAL EXAMINATION: VITAL SIGNS: Temperature is 98.4 Fahrenheit orally, pulse 64 and regular, respirations 18, blood pressure 160/72, sats 97% on room air. GENERAL: Alert and oriented, sitting in a wheelchair with legs elevated. HEENT: Her eyes were clear. Pupils are reactive. NECK: No bruits or JVD. CHEST: Distant breath sounds without wheeze or rales. She has marked thoracolumbar scoliosis with deformity. She has AP diameter increased with kyphosis. HEART: Regular rate without MGR. ABDOMEN: Soft. No organomegaly or tenderness. PELVIC: Deferred. EXTREMITIES: She has 2+ edema in her left lower extremity from the mid calf into the ankle and foot, that is erythematous and warm to the touch. She has bandage currently, but has a 2-cm superficial anterior lateral mid tibial skin ulcer. NEUROLOGIC: Decreased sensation to touch in palms of both feet. She is oriented to person, place, and time. Cranial nerves are grossly intact. Gait was not tested. No motor deficits are appreciated. INTEGUMENT: As above. LABORATORY DATA: White count 7600 with 82.6 polys, 7.3 lymphs, platelet count 181,000. Hemoglobin and hematocrit are 11.8 and 36.6 respectively. Her chemistry shows a low potassium of 3.4, BUN and creatinine of 23 and 1.1. Cultures from [facility] are currently pending. ASSESSMENT: 1. Cellulitis, left lower extremity, failing outpatient therapy. History of methicillin-resistant Staphylococcus aureus. 2. Left lower extremity ulcer. 3. Peripheral vascular disease, small vessel. 4. Hyponatremia, diuretic induced. 5. History of atrial fibrillation. 6. Essential hypertension, history of esophageal stricture, hiatal hernia, severe thoracolumbar scoliosis with chronic low back pain and stenosis, hypothyroidism, hyperlipidemia, history of benign carcinoid neoplasm. PLAN: The patient admitted for cultures of wound, IV vancomycin and Rocephin pending her wound cultures. We will resume home medications. Replace potassium as indicated. HISTORY AND PHYSICAL [id number] VIMALDianaCAITLIN TRANSINT:[id number] Voice Confirmation ID: [id number] DOCUMENT ID: [id number] PERCY HINKLE MD at 0741 CC: [id number] DICTATION DATE: 06/05/171855 CLINICAL RESEARCH NURSE: 06/05/171952 ADM IN [place] [id number] [place] [address]
--- NOTE | 2017-06-06 08:05 | NUR ---
PT ASLEEP WITH NO VISABLE SIGNS OF PAIN OR DISCOMFORT AT THIS TIME. BED IN LOW POSITION AND CALL LIGHT WITHIN REACH. WILL CONTINUE TO MONITOR.
--- NOTE | 2017-06-06 10:45 | NUR ---
MORNING MEDS PASSED AT THIS TIME. PRN PAIN MEDICATION ADMINISTERED WELL. DUE TO CHRONIC PAIN FRO SCHOLIOSIS. FAMILY AT BEDSIDE. SITTING UP IN ELECTRIC WC. CALL LIGHT IN REACH, FRESH WATER PROVIDED. CPOC.
--- NOTE | 2017-06-06 13:00 | NUR ---
LUNCH TRAY SET UP PROVIDED. BED LOW, CALL LIGHT IN REACH, DENIES NEEDS. CPOC.
--- NOTE | 2017-06-06 15:29 | NUR ---
Wound care consult: LLE is red and edematous from mid lower leg to ankle. Skin is shiny and moist. Open areas noted on lateral lower leg. Pt has been going to [facility] wound clinic weekly for debridement. She is unsure about topical treatments but states that Radha SHARONA has been doing dressing changes. Cleansed leg gently with wound still cleaner tube and patted dry. Covered entire lower left leg with Adaptic- followed by an ABD pad and secured with kerlix. Wound recommend an antibiotic ointment be applied daily. Wound care will continue to monitor.
--- NOTE | 2017-06-06 19:40 | NUR ---
RECIEVED SHIFT REPORT. PT IS LYING IN BED. ALERT AND ORIENTED AND ABLE TO VERBALIZE NEEDS. PT IN ELECTRIC WHEELCHAIR AT THIS TIME. IV IS PATENT AND ANTIBIOTIC HUNG INFUSING AT THIS TIME. PT IS AMBULATORY TO BEDSIDE COMMODE WITH ASSISTANCE. PT IS ABLE TO TRANSFER SELF FROM BED TO WHEELCHAIR. DRESSING TO LEFT LOWER LEG C/D/I. PT STATES PAIN IS 5/10. ISOLATION PRECAUTIONS IN PLACE. NO NEEDS ARE VERBALIZED AT THIS TIME. WILL CONTINUE TO MONITOR. SIDE RAILS ARE UP X 2. BED IS IN LOWEST POSITION. CALL LIGHT IS WITHIN REACH.
--- NOTE | 2017-06-06 21:44 | NUR ---
SHIFT ASSESSMENT COMPLETED. NIGHT MEDS GIVEN WITH NO PROBLEMS. SCHEDULED CARDURA HELD DUE TO B/P=101/41. PT C/O PAIN 03/01. ADMINISTERED PRESCRIBED PRN NORCO PER ORDER. DENIES FURTHER NEEDS. WILL MONITOR. SIDE RAILS X 2. BED LOW. CALL LIGHT IN REACH.
[2017-06-07 05:57] LABS: ANION GAP 7.4 mmol/L (8-16); CALCIUM 8.8 mg/dL (8.5-10.1); CARBON DIOXIDE 32.2 mmol/L (21.0-32.0); CREATININE - SERUM 1.3 mg/dL (0.6-1.3); POTASSIUM - SERUM 3.6 mmol/L (3.5-5.1)
--- NOTE | 2017-06-07 07:35 | NUR ---
PT AOX4 RESP EVEN AND NONLABORED PT DENIES NEEDS AT THIS TIME IV TO RIGHT FOREARM PATENT AND INTACT AT THIS TIME PT SITTING IN WHEELCHAIR WITH NEICE IN ROOM CALL LIGHT WITHIN REACH WILL CONTINUE TO MONITOR
[2017-06-07 09:52] VITALS: BP 150/56
--- NOTE | 2017-06-07 11:26 | NUR ---
CM met with patient and caregiver Blanca to assess discharge planning needs. Patient currently lives home alone where she has a caregiver 6 hours a day, 6 days a week. [employer] works for [employer]. Patient also hs [facility] who comes 3 days a week. Patient has an electric wheelchair, shower chair, elevated toilet seat. She is partial dependent with dressing, bathing, cooking, and toileting. Patient stated that her niece Yaquelin Carranza ([phone]) will be the one to take her home when is was time for discharge. CM will continue to follow and assist as needed. PCP: [facility] Yaquelin Carranza (niece) [phone]
[2017-06-07 13:07] VITALS: BP 145/65
[2017-06-07 16:41] VITALS: BP 140/65
[2017-06-07 19:00] VITALS: BP 138/59
--- NOTE | 2017-06-07 19:15 | NUR ---
RECIEVED SHIFT REPORT. PT IS SITTING IN ELECTRIC WHEELCHAIR. ALERT AND ORIENTED AND ABLE TO VERBALIZE NEEDS. IV IS PATENT AND SALINE LOC AT THIS TIME. PT IS AMBULATORY WITH ASSISTANCE. DRESSING TO LEFT LEG C/D/I. PT STATES PAIN IS 5/10. NO NEEDS ARE VERBALIZED AT THIS TIME. ISOLATION PRECAUTIONS IN PLACE. WILL CONTINUE TO MONITOR. SIDE RAILS ARE UP X 2. BED IS IN LOWEST POSITION. CALL LIGHT IS WITHIN REACH.
--- NOTE | 2017-06-07 22:54 | NUR ---
SHIFT ASSESSMENT COMPLETED. NIGHT MEDS GIVEN WITH NO PROBLEMS. PT C/O PAIN 12/30. ADMINISTERED PRESCRIBED PRN NORCO PER ORDER. PT ASSISTED TO GET IN BED. NO FURTHER NEEDS AT THIS TIME. WILL MONITOR. SIDE RAILS X 2. BED LOW. BED ALARM TURNED ON FOR SAFETY. CALL LIGHT IN REACH.
[2017-06-08] VITALS: BP 143/58; BP 152/66
[2017-06-08 04:00] VITALS: BP 141/58
--- NOTE | 2017-06-08 07:40 | NUR ---
PT AOX4 RESP EVEN AND NONLABORED IV TO RIGHT HAND PATENT AND INTACT PT DENIES NEEDS AT THIS TIME PT UP IN CHAIR WATCHING TV AT THIS TIME WILL CONTINUE TO MONITOR
[2017-06-08 08:00] VITALS: BP 159/74
[2017-06-08 16:00] VITALS: BP 149/68
--- NOTE | 2017-06-08 19:05 | NUR ---
PT IS SITTING IN ELECTRIC WHEELCHAIR, ASKED FOR COUGH MEDICINE WELL DRESSING TO BE CHANGED AGAIN, VERIFIED WITH DAY NURSE. ADVISED DRESSING CHANGE WILL BE DONE AND COUGH MEDICINE DUE WITH NIGHT MEDS. CALL LIGHT WITHIN REACH
[2017-06-08 20:00] VITALS: BP 157/66
[2017-06-09] VITALS: BP 156/80
[2017-06-09 04:00] VITALS: BP 157/72
[2017-06-09 05:33] LABS: CALCIUM 9.2 mg/dL (8.5-10.1); CARBON DIOXIDE 31.7 mmol/L (21.0-32.0); POTASSIUM - SERUM 3.7 mmol/L (3.5-5.1)
--- NOTE | 2017-06-09 07:30 | NUR ---
RECIEVED PT DURING WALKING ROUNDS. PT RESTING IN CHAIR WITH NO COMPLAINTS OF PAIN OR DISCOMFORT AT THIS TIME, PT IS QUESTIONING DISCHARGE, INFORMED PT THAT THE DOCTOR HAD TO SEE HER BEFORE WE COULD DISCHARGE. ASSESSMENT DONE PER FLOWSHEET. BED IN LOW POSITION AND CALL LIGHT WITHIN REACH. WILL CONTINUE TO MONITOR.
[2017-06-09 09:35] VITALS: BP 158/68
[2017-06-09 12:46] VITALS: BP 152/64
--- NOTE | 2017-06-09 13:13 | NUR ---
Nutrition Follow Up: Pt is eating 50% meal avg on an AHA diet. She is receiving Ensure BID. Wt stable. +BM 06/06/17. Labs reviewed. Meds noted including Bumex. Rec continue current diet, supplement regimen. RD following.
[2017-06-09 16:29] VITALS: BP 144/52
[2017-06-09] MEDS ORDERED: CLEOCIN HCL300 MG PO (17:24)
--- NOTE | 2017-06-09 19:11 | NUR ---
IC REMOVED AND PT DISCHARGED VIA WHEELCHAIR TO HOME WITH A FAMILY MEMBER.
== END 2017-06-09 19:12 | disposition home or self-care (01) | DRG 603 ==
LOC: D.MS 15:09
PROVIDERS: ADMIT Family Medicine
DX: L03.116 Cellulitis of left lower limb (principal); E87.1 Hypo-osmolality and hyponatremia; I73.9 Peripheral vascular disease, unspecified; K21.9 Gastro-esophageal reflux disease without esophagitis; I48.91 Unspecified atrial fibrillation; I10 Essential (primary) hypertension; E03.9 Hypothyroidism, unspecified; E78.5 Hyperlipidemia, unspecified; E87.6 Hypokalemia; M41.9 Scoliosis, unspecified; Z86.14 Personal history of Methicillin resistant Staphylococcus aureus infection

== ENCOUNTER → 2018-10-16 13:00 | Outpatient (CLI) | payer MEDICARE, OTHER ==
[2017-06-06 10:46] VITALS: BMI 21.6
[~2018-10-16 13:00] MED LIST changes: +CLEOCIN HCL300 MG PO
[2018-10-16 15:15] LABS: BASOPHILS 0.3 % (0-2); EOSINOPHILS 2.2 % (0-7); HEMATOCRIT 31.7 % (36.0-48.0); HEMOGLOBIN 10.1 g/dL (12-16); IMMATURE GRANULOCYTES 0.1 % (0-5); LYMPHOCYTES 13.8 % (15-50); MCH 28.1 pg (26.0-34.0); MCHC 31.9 g/dL (31.0-37.0); MCV 88.1 fL (80.0-100.0); MEAN PLATELET VOLUME 10.4 fL (7.4-10.4); MONOCYTES 6.6 % (2-11); PLATELET COUNT 217 10x3/uL (130-400); RDW 15.3 % (11.5-14.5); WBC 7.2 10x3/uL (4.8-10.8)
[2018-10-16 15:34] LABS: CREATININE - SERUM 1.2 mg/dL (0.6-1.3)
[2018-10-16 16:00] LABS: VANCOMYCIN - TROUGH 3.5 ug/mL (10.0-20.0)
== END | disposition home or self-care (01) ==
LOC: D.LABREF 13:00
PROVIDERS: Family Medicine
DX: Z51.81 Encounter for therapeutic drug level monitoring (principal); Z79.2 Long term (current) use of antibiotics

== ENCOUNTER → 2018-10-22 13:49 | Outpatient (CLI) | payer MEDICARE, OTHER ==
[2017-06-06 10:46] VITALS: BMI 21.6
[2018-10-22 15:06] LABS: BASOPHILS 0.3 % (0-2); EOSINOPHILS 2.3 % (0-7); HEMOGLOBIN 9.7 g/dL (12-16); IMMATURE GRANULOCYTES 0.3 % (0-5); LYMPHOCYTES 13.8 % (15-50); MCHC 31.3 g/dL (31.0-37.0); MCV 89.3 fL (80.0-100.0); MEAN PLATELET VOLUME 10.6 fL (7.4-10.4); MONOCYTES 7.5 % (2-11); NEUTROPHILS 75.8 % (40-80); PLATELET COUNT 204 10x3/uL (130-400); RBC 3.47 10x6/uL (4.00-5.40); WBC 7.7 10x3/uL (4.8-10.8)
[2018-10-22 15:33] LABS: VANCOMYCIN - TROUGH 14.3 ug/mL (10.0-20.0)
== END | disposition home or self-care (01) ==
LOC: D.LABREF 13:49
PROVIDERS: Family Medicine
DX: L08.9 Local infection of the skin and subcutaneous tissue, unspecified (principal)

== ENCOUNTER 2019-05-23 09:19 | Emergency (ER) | payer MEDICARE, BC ==
[~2019-05-23] VITALS: Ht 157.5 cm; Wt 53.2 kg
[2019-05-23 09:23] VITALS: Ht 157.5 cm; Wt 53.2 kg
[2019-05-23] MEDS ORDERED: FLUTICASONE PRO16 GM NASAL (10:37)
[2019-05-23] MEDS ORDERED: OMNICEF300 MG PO (10:37)
[2019-05-23] MEDS ORDERED: MUCINEX600 MG PO (10:37)
[2019-05-23 11:10] VITALS: BP 189/73
== END 2019-05-23 11:10 | disposition home or self-care (01) ==
LOC: D.ER 09:19
DX: J01.90 Acute sinusitis, unspecified (principal)

== ENCOUNTER → 2019-08-06 10:05 | Outpatient (CLI) | payer MEDICARE, BC ==
[2019-05-23 09:23] VITALS: BMI 21.4
[~2019-08-06 10:05] MED LIST changes: +FLUTICASONE PRO16 GM NASAL; +MUCINEX600 MG PO; +OMNICEF300 MG PO
== END | disposition home or self-care (01) ==
LOC: D.RAD 10:05
PROVIDERS: ATTEND Internal Medicine Gastroenterology
DX: K59.00 Constipation, unspecified (principal); R11.0 Nausea; R12 Heartburn

== ENCOUNTER 2020-02-24 07:43 | Emergency (ER) | payer MEDICARE, BC ==
[~2020-02-24] VITALS: Ht 157.5 cm; Wt 54.5 kg
[2020-02-24 07:56] VITALS: Ht 157.5 cm; Wt 54.5 kg
[2020-02-24] MEDS ORDERED: OMEPRAZOLE40 MG PO (08:12)
[2020-02-24] MEDS ORDERED: MOBIC7.5 MG (08:12)
[2020-02-24] MEDS ORDERED: PRAVACHOL40 MG PO (08:13)
[2020-02-24] MEDS ORDERED: TYLENOL W/CODEI1 TAB PO (08:14)
[2020-02-24] MEDS ORDERED: MODURETIC 5/501 TAB PO (08:14)
[2020-02-24] MEDS ORDERED: VITAMIN D1000 UNI1 PO (08:16)
[2020-02-24 10:09] VITALS: BP 214/81
== END 2020-02-24 10:17 | disposition home or self-care (01) ==
LOC: D.ER 07:43
DX: S81.811A Laceration without foreign body, right lower leg, initial encounter (principal); W22.8XXA Striking against or struck by other objects, initial encounter; Y93.9 Activity, unspecified; Y92.9 Unspecified place or not applicable; G62.9 Polyneuropathy, unspecified; I10 Essential (primary) hypertension

== ENCOUNTER 2020-03-12 10:31 | Inpatient (IN) | payer MEDICARE, BC ==
[~2020-03-12] VITALS: Ht 157.5 cm; Wt 54.4 kg
--- NOTE | ~2020-03-12 | HEMODYNAMI ---
PATIENT:CAITLIN CALIX MEDICAL RECORD: [id number] : 32 LOCATION:[facility] ADMISSION DATE: 03/12/20 Generatedon:03/18/202011:51 Patient name: CAITLIN CALIX Patient #: [id number] SSN: DO B: 1930 Date of study: 03/18/2020 Page: Of Hemodynamic Procedure Report Patient Data Patient Demographics Procedure consent was obtained First Name: CAITLIN Gender: Female Last Name: FIFI : 1930 Patient #: [id number] Age: 89 year(s) Race: Unknown Additional ID: [id number] Contact details [address]: [address] [place] [address] State: [place] City: [place] Zip code: [address] Past Medical History Allergies Allergen Reaction Date Comments Reported Augmentin 03/18/2020 Admission Admission Data Admission Date: 03/12/2020 Admission Time: 10:31 Room #: [id number] Height (in.): 62 BSA: 1.53 (m2) Height (cm.): 157.48 BMI: 21.77 (kg/m2) Weight (lbs.): 119 Weight (kg.): 53.98 Procedure Procedure Types Cath Procedure Peripheral Cath Diagnostic Procedure Certified Dietary Manager Peripheral Procedures Abd/Extremity Extremities Bilat Lower Extremity Procedure Description Procedure Date Procedure Date: 03/18/2020 Procedure Start Time: 11:04 Procedure Staff Name Function Antonio De Leon MD Performing Physician Ting Alexandra RT Flash Welder Mariam Rivas RN Nurse Low Martinez RT Scrub Procedure Data Cath Procedure Fluoroscopy Diagnostic fluoroscopy Total fluoroscopy Time: 8.3 time: 8.3 min min Diagnostic fluoroscopy Total fluoroscopy dose: 13 dose: 13 mGy mGy Contrast Material Contrast Material Type Amount (ml) Isovue 300 95 Entry Location Entry Primary Successful Side Size Upsize Upsize Entry Closure Succ essful Closure Location (Fr) 1 (Fr) 2 (Fr) Remarks Device Remarks Femoral Angio-VIP artery 6Fr Diagnostic catheters Device Type Used For End Catheter Placement Merit ULTRA BOLUS FLUSH 5Fr 65CM catheter ([id number]) Procedure Medications Medication Administration Route Dosage Versed I.V. 2 mg Fentanyl I.V. 25 mcg Heparin Bolus I.A. 1000 units Fentanyl I.V. 25 mcg Heparin Bolus I.A. 1000 units Hemodynamics Rest BSA: 1.53 (m2) O2 Consumption: Estimated: 129.37 (ml/min) O2 Consumption indexed : Estimated:84.56 (ml/min/m) Heart Rate: 60 (bpm) Snapshots Pre Cath Intra NCS Post Cath Vital Signs Time Heart Resp SPO2 etCO2 NIBP (mmHg) Rhythm Pain Status Sedation Rate (ipm) (%) (mmHg) Level (bpm) 11:03:10 60 24 98 23.9 171/80(154) NSR 0 (11) , No 10(A) pain 11:07:10 59 26 99 25.4 176/70(132) NSR 2 (11) , 8(A) Uncomfortable 11:11:34 57 26 96 22.4 156/67(111) NSR 4 (11) , 8(A) Distressing 11:15:52 57 21 98 0 165/66(120) NSR 2 (11) , 8(A) Uncomfortable 11:20:18 56 22 100 0 145/53(116) NSR 2 (11) , 8(A) Uncomfortable 11:24:36 55 16 94 11.9 145/58(105) NSR 2 (11) , 8(A) Uncomfortable 11:28:50 56 15 99 15.7 142/67(81) NSR 4 (11) , 8(A) Distressing 11:32:56 55 23 99 12.7 127/91(109) NSR 1 (11) , Very 8(A) mild 11:37:08 54 16 0 142/55(107) NSR 2 (11) , 8(A) Uncomfortable 11:41:22 55 19 86 26.9 150/62(111) NSR 2 (11) , 8(A) Uncomfortable 11:45:40 54 18 95 29.1 154/61(119) NSR 0 (11) , No 8(A) pain 11:49:56 54 16 0 161/66(115) NSR 2 (11) , 8(A) Uncomfortable Medications Time Medication Route Dose Verified Delivered Reason Notes Effe ctiveness by by 11:06:02 Versed I.V. 2 mg Antonio Anjelica used for Moises Vazquez RN procedure 11:13:06 Fentanyl I.V. 25 Antonio Becerra mcg Moises Rivas RN, MD 11:16:37 Heparin I.A. 1000 Antonio Alvarez for Bolus units De Leon De Leon anticoagulation MD [facility]ION 11:25:36 Heparin I.A. 1000 Antonio Alvarez for Bolus units De Leon De Leon anticoagulation MD [facility] 11:29:16 Fentanyl I.V. 25 Antonio Becerra used for mcg Moises Rivas RN procedure MD Procedure Log Time Note 10:29:21 Patient Height : 62 inches 10:29:24 Patient Weight : 119 lbs 10:30:15 Time tracking: Regular hours (M-F 7:00 - 5:00) 10:30:38 Plan of Care:Hemodynamics will remain stable., Cardiac rhythm will remain stable., Comfort level will be maintained., Respiratory function will remain adequate., Patient/ family verbilizes understanding of procedure., Procedure tolerated without complication., Recovers from procedure without complications.. 10:31:10 Patient received from Med/Surg to IR Alert and oriented. Tansferred to table in Supine position. 10:31:53 Signed procedure consent form obtained from patient. 10:32:03 H&P Date Dictated: 03/18/2020 Within 30 days and on chart.. 10:32:04 Pre-procedure instructions explained to patient. 10:32:05 Pre-op teaching completed and patient verbalized understanding. 10:32:07 Family unavailable. 10:32:09 Patient NPO since Midnight. 10:32:42 Patient allergic to Augmentin 10:33:08 Is the patient allergic to Iodine/contrast media? No. 10:33:11 Is patient on blood thinner?No 10:33:13 Patient diabetic? No. 10:33:16 - 10:33:18 ----Pre-sedation anethsthesia assessment.---- 10:33:21 Previous problem with sedation/anesthesia? No ? 10:33:23 Snore? Yes 10:33:25 Sleep apnea? No 10:33:28 Deviated septum? No 10:33:30 Opens mouth fully? Yes 10:33:33 Sticks out tongue? Yes 10:33:46 Airway obstruction? Yes cad 10:33:54 Dentures? Yes secured 10:34:22 - 10:34:27 Use device set IR Diagnostic 10:35:15 DOC .035 wire (N32895) opened to sterile field. 10:35:15 BHAGAT 260 wire (U65347) opened to sterile field. 10:35:16 PERCUTANEOUS ENTRY 19GA needle opened to sterile field. 10:35:17 SHEATH 5FR [place] (NBW189) opened to sterile field. 10:35:18 TUBING Contrast Injection High Pressure (UUC454P) opened to sterile field. 10:35:20 A Mentegram ULTRA BOLUS FLUSH 5Fr 65CM catheter ([id number]) was advanced over the wire and used for . 10:35:22 Tegaderm 4 x 4 (1626W) opened to sterile field. 10:35:22 Sterile Angiographic Pack opened to sterile field. 10:35:24 Bag Decanter () opened to sterile field. 10:35:24 ACIST Manifold (44783) opened to sterile field. 10:35:25 ACIST Hand Control (04751) opened to sterile field. 10:35:26 ACIST Syringe (34209) opened to sterile field. 10:35:31 - 10:38:55 Pre procedure: right dorsailis pedis pulse Doppler 10:38:59 Pre procedure: left dorsailis pedis pulse Doppler 10:39:04 Pre procedure: right posterior tibial pulse Doppler 10:39:08 Pre procedure: left posterior tibial pulse Doppler 10:39:19 Right groin area was prepped with chlora-prep and draped in sterile fashion 10:39:24 Left groin area was prepped with chlora-prep and draped in sterile fashion 11:02:03 Vital chart was started 11:02:29 Baseline sample Acquired. 11:03:48 - 11:03:50 Physician arrived 11:03:51 --------ALL STOP TIME OUT------ 11:03:51 Final Timeout: patient, procedure, and site verified with staff and physician. All members of the team are in agreement. 11:04:08 Fire Safety Assessment: A--An alcohol-based skin anteseptic being used preoperatively., C--Open oxygen or nitrous oxide is being used. 11:04:14 2) 60-89 Mildly reduced kidney function, and other findings (as for stage 1) point to kidney disease. 11:04:19 Procedure started. 11:04:19 Full Disclosure recording started 11:04:23 Local anesthetic to left femerol artery with Lidocaine 1% by Antonio De Leon MD.INITIAL ACCESS ONLY 11:06:02 Versed 2 mg I.V. was administered by Anjelica Vazquez RN; used for procedure; Verbal order read back and verified. 11:12:43 Arterial access obtained using ultrasound guidance. 11:12:58 GLIDE CATHETER 4FR Straight 65cm (CG412) opened to sterile field. 11:13:00 GLIDE WIRE ANGLE 180cm (FN6971) opened to sterile field. 11:13:06 Fentanyl 25 mcg I.V. was administered by Mariam Rivas RN; ; Verbal order read back and verified. 11:13:17 TORQUE DEVICE PLASTIC .038 ( TD01) opened to sterile field. 11:16:37 Heparin Bolus 1000 units I.A. was administered by Antonio De Leon MD; for anticoagulation; Verbal order read back and verified. 11:25:36 Heparin Bolus 1000 units I.A. was administered by Antonio De Leon MD; for anticoagulation; Verbal order read back and verified. 11:27:58 SHEATH 7FR [place] (ZNH411) opened to sterile field. 11:28:25 INFLATOR BasixTOUCH (KT7386) opened to sterile field. 11::43 Inflate balloon Inflation number: 1 A [place]cross 4 x 4 x 135 Balloon ([id number]) was prepped and advanced across the Undefined1 , then inflated . 11:29:03 VIABAHN 5 X 10 X 120 STENT ([id number] was deployed across Undefined1 . 11:29:16 Fentanyl 25 mcg I.V. was administered by Mariam Rivas RN; used for procedure; Verbal order read back and verified. 11::27 Inflate balloon Inflation number: 2 A Evercross 5 x 4 x 135 Balloon ([id number]) was prepped and advanced across the Undefined1 , then inflated . 11:42:32 Sheath removed intact; hemostasis achieved with Angio-VIP 6Fr to the Femoral artery. 11:42:32 A sheath was inserted into the Femoral artery 11:42:47 Procedure ended.(Physican Out) 11:43:31 Fluoroscopy time 08.30 minutes. 11:43:38 Flurop Dose total: 13 11:43:38 Fluoroscopy dose: 13 mGy 11:43:45 Contrast amount:Isovue 300 95ml. 11:43:48 Procedure and supply charges have been captured, reviewed, submitted an d are correct. 11:50:11 Vital chart was stopped 11:50:47 Report given to Med/Surg. Intervention Summary Intervention Notes Time ActionType Lesion and Equipment Used Action# Pressure Duration Attributes 11::43 Inflate Undefined1 Evercross 4 x 4 1 0 00:00 balloon x 135 Balloon ([id number]) 11:29:03 Deploy self Undefined1 VIABAHN 5 X 10 1 expanding X 120 STENT stent ([id number] 11::27 Inflate Undefined1 Evercross 5 x 4 2 0 00:00 balloon x 135 Balloon ([id number]) Device Usage Item Name Manufacture Quantity Catalog Number Hospital Part Current M inimal Lot# / Charge Number Stock Stock Serial# Code DOC .035 wire Cook Medical 1 [id number] 131169 5 ([id number]) BHAGAT 260 wire Cook Medical 1 [id number] 322155 39416 358849 5 ([id number]) PERCUTANEOUS [employer] Medical 1 [id number] 199834 937633 5 [id number] ENTRY 19GA needle SHEATH 5FR Terumo 1 OMR776 255515 106808 719580 5 [place] (JJV390) TUBING Contrast Merit 1 [id number] 615702 154442 671376 5 Injection High Medical Pressure ([id number]) Merit ULTRA Merit 1 [id number] 661599 088099 5 BOLUS FLUSH 5Fr Medical 65CM catheter ([id number]) Tegaderm 4 x 4 3M 1 1626W 077167 328079 946288 5 (1626W) Sterile Cardinal 1 [id number] 929219 395384 5 Angiographic Health Pack Bag Decanter Microtek 1 2001S 315540 32003 974326 5 (2002S) Medical Inc. ACIST Manifold Acist 1 55069 619606 446397 521308 5 (86782) Medical Systems Inc ACIST Hand Acist 1 23897 526790 218530 116883 5 Control (60718) Medical Systems Inc ACIST Syringe Acist 1 75669 971878 799790 336732 2 0 (95030) Medical Systems Inc GLIDE CATHETER Terumo 1 CG412 371655 090864 5 4FR Straight 65cm (CG412) GLIDE WIRE Terumo 1 TA1896 163278 743431 844902 5 ANGLE 180cm (BU7787) TORQUE DEVICE [place] 1 TD01 196585 136625 188469 5 PLASTIC .038 ( Scientific TD01) SHEATH 7FR Terumo 1 DAV438 392750 051613 140702 5 [place] (ZPH082) INFLATOR Merit 1 IY9445 816273 887414 234045 5 Electric Objects (XN0537) Evercross 4 x 4 Medtronic 1 [id number] 158247 328485 416815 5 x 135 Balloon ([id number]) VIABAHN 5 X 10 [place] 1 [id number] 743317 654020 049408 5 [id number] X 120 stent ([id number]) Evercross 5 x 4 Medtronic 1 [id number] 091139 445353 676527 5 x 135 Balloon ([id number]) Signature Audit [place] Stage Time Signature Unsigned Intra-Procedure 03/18/2020 Ting Alexandra 11:51:40 AM RT(R) [facility] [address] [place] [address]
[~2020-03-12 10:31] MED LIST changes: +MOBIC7.5 MG; +PRAVACHOL40 MG PO; +TYLENOL W/CODEI1 TAB PO; +VITAMIN D1000 UNI1 PO
[2020-03-12 11:31] LABS: BASOPHILS 0.1 % (0-2); EOSINOPHILS 1.1 % (0-7); HEMATOCRIT 34.7 % (36.0-48.0); HEMOGLOBIN 10.6 g/dL (12-16); IMMATURE GRANULOCYTES 0.3 % (0-5); LYMPHOCYTES 10.4 % (15-50); MCH 27.7 pg (26.0-34.0); MCHC 30.5 g/dL (31.0-37.0); MCV 90.6 fL (80.0-100.0); MEAN PLATELET VOLUME 9.7 fL (7.4-10.4); MONOCYTES 8.1 % (2-11); PLATELET COUNT 202 10x3/uL (130-400); RBC 3.83 10x6/uL (4.00-5.40); RDW 16.2 % (11.5-14.5); WBC 7.4 10x3/uL (4.8-10.8)
[2020-03-12 11:40] LABS: ANION GAP 4.8 mmol/L (8-16); CALCIUM 9.1 mg/dL (8.5-10.1); CARBON DIOXIDE 32.1 mmol/L (21.0-32.0); CREATININE - SERUM 1.2 mg/dL (0.6-1.3); POTASSIUM - SERUM 3.9 mmol/L (3.5-5.1)
[2020-03-12 11:45] LABS: ALBUMIN 2.9 g/dL (3.4-5.0); PROTEIN - SERUM 6.6 g/dL (6.4-8.2)
--- NOTE | 2020-03-12 11:54 | NUR ---
Pt admitted to [facility] today. It is noted that she has numerous chronic ulcers on bilateral lower extremities. Left lower leg from heel/ankle to just below the knee has multiple ulcers. Pt's family member states she has had them for about 3 years. Blanchable redness, slight edema and a moderate serous drainage is noted. There is no odor. Right lower extremity has a laceration at inner calf that has steristrips. She states sutures were removed yesterday. There is no drainage, redness, edema or odor noted from this site. There are several more chronic ulcers on this leg ranging from heels/ankles to just below the knee. There is no odor but edema, slight redness and small amount of serous drainage is noted. A superficial wound culture was obtained as there are no deep wounds. Both legs were cleansed with wound vacuum cleaner mechanic and patted dry. They were then covered with adaptic, 4x4s and secured with kerlix. Will recommend daily dressing changes due to drainage. Pt also has a history of pressure injuries on her sacrum/coccyx area as noted by scarring and skin discoloration. Currently the sacrum and buttocks at coccyx region are slow to ayesha. Mepilex sacral dressing was applied for protection and instructions on turning/repositioning were given. Both voiced understanding. Wound care will monitor.
--- NOTE | 2020-03-12 11:55 | NUR ---
20 G TO THE RIGHT ARM. SHE HAS VOIDED ON THE BEDPAN. THE CALL LIGHT IS WITHIN REACH. HER NEICE IS AT THE BEDSIDE.
[2020-03-12 16:45] VITALS: BP 129/68
[2020-03-12 17:49] LABS: BILIRUBIN NEGATIVE (NEGATIVE); GLUCOSE NEGATIVE (NEGATIVE); KETONE NEGATIVE (NEGATIVE); NITRITE NEGATIVE (NEGATIVE); SPECIFIC GRAVITY 1.005 (1.005-1.020); UROBILINOGEN NORMAL (NORMAL)
[2020-03-12 20:00] VITALS: BP 203/73
[2020-03-13] VITALS: BP 183/56
[2020-03-13 04:00] VITALS: BP 129/63
--- NOTE | 2020-03-13 07:47 | HP ---
PATIENT: PHYLLIS CALIX MEDICAL RECORD: [id number] ACCOUNT: [id number] LOCATION:D.[facility] [address] : [birth year] ADMISSION DATE: 03/12/20 PCP: PERCY HINKLE MD HISTORY AND PHYSICAL EXAMINATION REASON FOR ADMISSION: Bilateral lower extremity infection post-fall and peripheral vascular disease. HISTORY OF PRESENT ILLNESS: The patient is an 89-year-old female with history of peripheral vascular disease followed in the past by Dr. Bg Lord and the [facility]. She had a CTA with runoff several years ago showing poor nonoperable peripheral vascular disease in her lower extremities. She has had chronic wounds and been on wound care for over 5 years, initially at [facility] and then at [facility]. In October of this year, the wound nurse felt there was little more they could do for the patient and she was sent home with home health wound care. Her wound has never healed, but has not been cellulitic until recently. She had a fall at home last week and incurred a large laceration on her right medial inner gastroc area, it was closed in the ER. She came to see me in followup in 10 days for suture removal, but I was only able to remove every other suture. She came back today and has oozing from the wound with lymphedema and cellulitis, right leg worse than the left. She refused to go to wound care at [facility] where she been taken care of a previously, blaming them for her situation now. She has not had any fever. She has not walked in some time, has severe scoliosis and an electric wheelchair, has 24-hour care. She is now admitted for IV antibiotics, but realizes she may not improve. OTHER PAST HISTORY: Thoracic scoliosis with chronic low back pain, history of hyponatremia when she was hospitalized in 2016, history of MRSA, right malleolar ulcer remotely, essential hypertension, hyperlipidemia, hypothyroidism, esophageal stricture with GERD, history of benign gastric polyps removed in September 2016, osteoporosis, coronary artery disease, osteoarthritis, neuropathy of lower extremities, remote nicotine use, alopecia, anemia of chronic disease, history of benign carcinoid neoplasm, hiatal hernia, history of atrial fibrillation. PAST SURGICAL HISTORY: Hysterectomy, appendectomy, partial thyroidectomy, esophageal dilution, cardiac catheterization in 2004 with 60% stenosis treated medically, cholecystectomy, Black fundoplication, sinus surgery. ALLERGIES: LASIX CAUSING HYPONATREMIA, AMOXICILLIN CAUSING RASH, PROMETHAZINE CAUSING NAUSEA AND VOMITING, SULFA CAUSING RASH. FAMILY HISTORY: Mother had Parkinson's and is . Brother with heart disease. Son at 38 with pulmonary hypertension due to genetic heart and lung problems. Father had heart disease and kidney disease. SOCIAL HISTORY: She is , nonsmoker now, but did smoke in the past. Does not drink alcohol. Lives with 24-hour care at home, only transfers from her motorized wheelchair. CURRENT MEDICATIONS: She is on Cleocin 300 mg q.i.d. for the last week, meloxicam 7.5 mg daily with food, pramipexole 0.25 mg at bedtime, doxazosin 2 mg p.o. b.i.d., Tylenol #3 one every 6 hours for pain p.r.n., pravastatin 40 mg at bedtime, amiodarone 200 mg once a day, omeprazole 40 mg every morning, HISTORY AND PHYSICAL [id number] PHYLLIS CALIX metoclopramide 10 mg before meals t.i.d., Venelex topical ointment apply to skin 3 times weekly, vitamin C 1000 mg daily, Voltaren 1% topical gel to arthritic joints t.i.d. p.r.n., potassium chloride ER 10 mEq p.o. in the evening, 2 in the morning, Flonase nasal spray daily, levothyroxine 100 mcg p.o. every morning before meals, amiloride/hydrochlorothiazide 5/50 one p.o. every morning, Centrum Silver 1 daily, ferrous sulfate 325 mg a day, calcium carbonate with vitamin D 500 mg two tablets daily, Colace 100 mg a day, lisinopril 5 mg a day, vitamin D 1000 mg a day, nitroglycerin 0.4 sublingual p.r.n. chest pain, Claritin 10 mg a day, Bumex 0.5 mg p.r.n. edema. REVIEW OF SYSTEMS: GENERAL: Cough and fatigue. No recent weight change or fever. HEENT: No recent new visual change, sinus congestion, or sore throat. RESPIRATORY: Denies shortness of breath. She is not very active. Denies cough, hemoptysis. CARDIAC: No exertional chest pain or claudication. She is minimally ambulatory. She has chronic peripheral edema in both lower extremities. ENDOCRINE: Denies polyuria, polydipsia, heat or cold intolerance. NEUROLOGIC: No history of stroke, TIA, vascular headaches, or seizures. PSYCHIATRIC: Denies depressed mood. INTEGUMENT: Chronic ulcers on both ankles, left greater than right. Recent fall with laceration to right lower leg and worsening edema and erythema. PHYSICAL EXAMINATION: VITAL SIGNS: Height 5 feet 4 inches, weight was not checked, blood pressure ____ with a heart rate of 80 and regular. She is afebrile. HEENT: Eyes are clear. Oropharynx unremarkable. NECK: Supple. CHEST: Distant breath sounds without wheeze. She has marked thoracolumbar scoliosis and rotation of her upper chest. HEART: Regular rate. ABDOMEN: Soft, nontender. GENITOURINARY: Deferred. MUSCULOSKELETAL: She has 3+ pitting edema to the mid-calf. She has sutures removed from a long semilunar laceration on the right inner gastroc medially with some weeping. There is surrounding erythema in this area. She has excoriations and ulcers on both lower ankles. NEUROLOGICAL: She has decreased sensation to touch in bottoms of both feet and tops of her feet as well. She has no obvious motor deficits, but decreased muscle tone. She is oriented to person, place and time. LABORATORY DATA: Shows a sodium 135, BUN and creatinine of 23 and 1.3, GFR 54, glucose of 118. Liver functions are normal. White count 7400 with slight left shift, H&H is 10.6 and 34.7, MCV of 90. Urinalysis is pending. ASSESSMENT: 1. Cellulitis in bilateral lower extremities, right greater than left. 2. Chronic lymphedema. 3. Chronic severe peripheral vascular disease, inoperable, treated medically. 4. Chronic stasis ulcers. 5. History of paroxysmal atrial fibrillation, hypertension, hyperlipidemia, osteoarthritis, chronic low back pain, history of gastroesophageal reflux disease with esophageal stricture, hypothyroidism, debilitated state. PLAN: The patient admitted for IV antibiotics, wound care. I told Phyllis that HISTORY AND PHYSICAL [id number] PHYLLIS CALIX chances of recovery from this is very low and she may require an amputation. She invokes a DNR status at this point. TRANSINT:[id number] Voice Confirmation ID: [id number] DOCUMENT ID: [id number] PERCY HINKLE MD at 0747 CC: [id number] DICTATION DATE: 03/12/20 1309 DATA COORDINATOR: 03/12/20 1529 ADM IN [place] [id number] [place] [id number]
[2020-03-13 08:26] VITALS: BP 169/64
--- NOTE | 2020-03-13 08:36 | NUR ---
DRESSING CHANGED BILATERAL TO LOWER LEG. SHE IS CALLING FOR THE BEDPAN. THE CALL LIHGT IS WITHIN REACH. THE DRESSING IS INTACT TO HER COCCYX.
[2020-03-13 10:02] VITALS: BMI 21.9
--- NOTE | 2020-03-13 15:52 | MORECARE ---
CASE MANAGEMENT DISCHARGE SUMMARY PATIENT: CAITLIN CALIX UNIT: [id number] ADM DATE: 03/12/20 AGE: 89 : 31 SEX: F ROOM/BED: D.2202 AUTHOR: ROXANN MARKS PHYSICIAN: REFERRING PHYSICIAN: PERCY HINKLE MD DATE OF SERVICE: 03/13/20 Discharge Plan Patient Name: CAITLIN CALIX Facility: [facility]:[place] : 1930 Planned Disposition: Home or Self Care Anticipated Discharge Date: Discharge Date: Expected LOS: Initial Reviewer: [email or web address] Initial Review Date: 03/12/2020 Generated: 03/13/20 4:51 pm Comments DCP- Discharge Planning Updated by [email or web address]: Lorraine Duckworth on 03/13/20 2:[address] RECEIVED A CALL FROM MARIA T CHAN WITH [facility], THE PATIENT HAS 24 HOUR CARE MARIA T CHAN # IS [phone] Patient Name: CAITLIN CALIX Page 22717 at 1552 All edits/amendments must be made on the electronic document DICTATION DATE: 03/13/201551 CHILD DEVELOPMENT ASSOCIATE TEACHER: MARICARMEN 03/13/201551 RPT#: [id number] DC DATE: STATUS: ADM IN [facility] [address] [place] [address] END OF REPORT
[2020-03-13 16:49] VITALS: BP 148/55
[2020-03-13 20:00] VITALS: BP 129/56
[2020-03-14] VITALS: BP 182/66
[2020-03-14 04:00] VITALS: BP 192/68
[2020-03-14 08:00] VITALS: BP 119/50
[2020-03-14 08:00] LABS: ANION GAP 8.8 mmol/L (8-16); CARBON DIOXIDE 29.8 mmol/L (21.0-32.0); CREATININE - SERUM 1.1 mg/dL (0.6-1.3); POTASSIUM - SERUM 3.6 mmol/L (3.5-5.1)
[2020-03-14 09:11] VITALS: BP 186/68
--- NOTE | 2020-03-14 10:09 | NUR ---
RESTING IN BED, NO DISTRESS NOTED, IV INFUSING, TOOK PO MEDS WITH EASE, CONT TO MONITOR CELLULITIS
[2020-03-14 13:05] VITALS: BP 133/52
[2020-03-14 16:26] VITALS: BP 123/72; BP 139/56
--- NOTE | 2020-03-14 19:00 | NUR ---
BEDSIDE REPORT RECEIVED AND CARE OF PT ASSUMED. PT LYING IN HIGH MAK'S POSITION WATCHING TV. IV TO RIGHT FA PATENT WITH NS INFUSING AT KVO. PUREWICK EXTERNAL CATHETER IN PLACE. WILL MONITOR FOR NEEDS.
--- NOTE | 2020-03-14 20:42 | NUR ---
HS MEDICATIONS GIVEN TO INCLUDE TYLENOL #3 PO PER REQUEST FOR BACK PAIN. WILL CONTINUE TO MONITOR FOR NEEDS.
[2020-03-15] VITALS: BP 151/58
--- NOTE | 2020-03-15 03:45 | NUR ---
PT WITH INCONTINENT BM. CLEANED AND CHANGED BEDPADS. REMOVED MEPILEX HEART THAT WAS SOILED. CLEANSED COCCYX WITH WOUND CORE MAKER HELPER AND PLACED NEW DRESSING.
[2020-03-15 04:00] VITALS: BP 139/58
[2020-03-15 07:03] LABS: ANION GAP 11.7 mmol/L (8-16); CALCIUM 8.7 mg/dL (8.5-10.1); CARBON DIOXIDE 28.6 mmol/L (21.0-32.0); POTASSIUM - SERUM 4.3 mmol/L (3.5-5.1)
[2020-03-15 08:00] VITALS: BP 149/67
--- NOTE | 2020-03-15 09:30 | NUR ---
RESTING IN BED, NO DISTRESS NOTED, DRESSINGS TO LOWER LEGS, IV NFUSING, PUREWICK IN PLACE, DR HINKLE HERE AND MADE ROUNDS
[2020-03-15 12:00] VITALS: BP 153/61
[2020-03-15 16:00] VITALS: BP 162/66
--- NOTE | 2020-03-15 17:00 | NUR ---
DRESSINGS CHANGED TO LOWER LEGS, KATHERIN WELL, SOME VERDE COLORED DRAINAGE TO DRESSINGS, CLEANED AND REAPPLIED, CONT TO MONITOR
--- NOTE | 2020-03-15 19:00 | NUR ---
BEDSIDE REPORT RECEIVED AND CARE OF PT ASSUMED. PT LYING IN HIGH MAK'S POSITION WATCHING TV. IV TO RIGHT FA PATENT WITH NS INFUSING AT KVO. PT WITH INCONTINENT BM AND URINE. CHANGED ALL BEDPADS AND CLEANSED PT. REPLACED MEPILEX DRESSING ON COCCYX. APPLIED NEW PUREWICK EXTERNAL CATHETER. POSITIONED FOR COMFORT PER TURN SCHEDULE.
[2020-03-15 20:00] VITALS: BP 154/64
--- NOTE | 2020-03-15 20:54 | NUR ---
HS MEDICATIONS GIVEN TO INCLUDE TYLENOL #3 PO PER REQUEST FOR CHRONIC BACK PAIN. WILL CONTINUE TO MONITOR FOR NEEDS.
[2020-03-16] VITALS: BP 160/62
--- NOTE | 2020-03-16 01:34 | NUR ---
PT CLEANED AND ALL BEDDING CHANGED DUE TO INCONTINENCE. POSITIONED FOR COMFORT.
[2020-03-16 04:00] VITALS: BP 148/59
--- NOTE | 2020-03-16 08:09 | NUR ---
SHE IS ALERT, INCONTINENT OF BOWEL AND THE PURE WICK IS LEAKING. I CHANGED TO MEPILEX ON HER BOTTOM. NEW LINEN AND PADS CHANGED.
[2020-03-16 09:07] VITALS: BP 155/62
[2020-03-16 12:26] VITALS: BP 135/58
--- NOTE | 2020-03-16 15:47 | NUR ---
dressing changed bilaterally to the lower legs. she is sleepy, but takes her medications and closes her eyes again. the call light is within reach.
[2020-03-16 17:10] VITALS: BP 101/42
--- NOTE | 2020-03-16 19:00 | NUR ---
BEDSIDE REPORT RECEIVED AND CARE OF PT ASSUMED. PT LYING IN LOW MAK'S POSITION WITH EYES CLOSED. IV TO RIGHT FA PATENT WITH NS INFUSING AT KVO. PUREWICK EXTERNAL CATHETER IN USE. WILL MONITOR FOR NEEDS.
[2020-03-16 20:37] VITALS: BP 115/46
--- NOTE | 2020-03-16 21:01 | NUR ---
HS MEDICATIONS GIVEN TO INCLUDE TYLENOL #3 FOR PAIN IN BACK. WILL CONTINUE TO MONITOR FOR NEEDS.
[2020-03-17 00:50] VITALS: BP 138/53
[2020-03-17 06:48] VITALS: BP 160/60
--- NOTE | 2020-03-17 07:45 | NUR ---
IV WAS LEAKING. NEW IV 20 G TO THE RIGHT ARM. SHE IS MORE AWAKE THIS MORNING. THE CALL LIHGT IS WITHIN REACH. THE BED ALARM IS ON.
[2020-03-17 08:24] VITALS: BP 155/61
[2020-03-17 08:51] LABS: ALBUMIN 2.3 g/dL (3.4-5.0); ANION GAP 7.3 mmol/L (8-16); BILIRUBIN - TOTAL 0.27 mg/dL (0.2-1.3); CALCIUM 9.1 mg/dL (8.5-10.1); CARBON DIOXIDE 30.6 mmol/L (21.0-32.0); POTASSIUM - SERUM 4.9 mmol/L (3.5-5.1); PROTEIN - SERUM 5.7 g/dL (6.4-8.2)
[2020-03-17 12:14] VITALS: BP 157/63
--- NOTE | 2020-03-17 14:48 | MORECARE ---
CASE MANAGEMENT DISCHARGE SUMMARY PATIENT: CAITLIN CALIX UNIT: [id number] ADM DATE: 03/12/20 AGE: 89 : 31 SEX: F ROOM/BED: D.2202 AUTHOR: ROXANN MARKS PHYSICIAN: REFERRING PHYSICIAN: PERCY HINKLE MD DATE OF SERVICE: 03/17/20 Discharge Plan Patient Name: CAITLIN CALIX Facility: [facility]:[place] : 1930 Planned Disposition: Home or Self Care Anticipated Discharge Date: Discharge Date: Expected LOS: Initial Reviewer: [email or web address] Initial Review Date: 03/12/2020 Generated: 03/17/20 3:48 pm DCP- Discharge Planning Updated by [email or web address]: Lorraine Duckworth on 03/13/20 2:[address] RECEIVED A CALL FROM MARIA T CHAN WITH [facility], THE PATIENT HAS 24 HOUR CARE FEDESanjiv DUSTIN # IS [phone] Last DP export: 03/13/20 2:52 p Patient Name: CAITLIN CALIX Page 86866 at 1448 All edits/amendments must be made on the electronic document DICTATION DATE: 03/17/201447 MOTOR AND CONTROLS TESTER: MARICARMEN 03/17/201447 RPT#: [id number] DC DATE: STATUS: ADM IN [facility] [address] [place] [address] END OF REPORT
--- NOTE | 2020-03-17 14:57 | MORECARE ---
CASE MANAGEMENT DISCHARGE SUMMARY PATIENT: CAITLIN CALIX UNIT: [id number] ADM DATE: 03/12/20 AGE: 89 : 31 SEX: F ROOM/BED: D.2202 AUTHOR: ROXANN MARKS PHYSICIAN: REFERRING PHYSICIAN: PERCY HINKLE MD DATE OF SERVICE: 03/17/20 Discharge Plan Patient Name: CAITLIN CALIX Facility: [facility]:[place] : 1930 Planned Disposition: Home or Self Care Anticipated Discharge Date: Discharge Date: Expected LOS: Initial Reviewer: [email or web address] Initial Review Date: 03/12/2020 Generated: 03/17/20 3:56 pm DCP- Discharge Planning Updated by [email or web address]: Lorraine Duckworth on 03/13/20 2:[address] RECEIVED A CALL FROM MARIA T CHAN WITH [facility], THE PATIENT HAS 24 HOUR CARE MARIA T CHAN # IS [phone] DCPIA - Discharge Planning Initial Assessment Updated by [email or web address]: Lorraine Duckworth on 03/17/20 2:55 pm * Is the patient Alert and Oriented? Yes * How many steps to enter\exit or inside your home? Ramp * PCP * Pharmacy [facility] * Preadmission Environment Other * Other Environment HOME WITH 24/7 CARE TAKERS * ADLs Total Dependent * Equipment Bedside Commode Power Chair or Electric Scooter * List name and contact numbers for known caregivers / representatives who currently or will assist patient after discharge: KRISTOPHER CALIX (NIECE) [phone] * Verbal permission to speak to the caregivers and representatives has been obtained from the patient. N/A * Community resources currently utilized [facility] Other Private Duty Care * Please name any agencies selected above. [facility] * Additional services required to return to the preadmission environment? No * Can the patient safely return to the preadmission environment? Yes * Has this patient been hospitalized within the prior 30 days at any hospital? No Last DP export: 03/17/20 1:48 p Patient Name: CAITLIN CALIX Page 35446 at 1457 All edits/amendments must be made on the electronic document DICTATION DATE: 03/17/201455 [employer] OFFICER: MARICARMEN 03/17/201455 RPT#: [id number] DC DATE: STATUS: ADM IN [facility] [address] [place] [address] END OF REPORT
--- NOTE | 2020-03-17 15:05 | MORECARE ---
CASE MANAGEMENT DISCHARGE SUMMARY PATIENT: CAITLIN CALIX UNIT: [id number] ADM DATE: 03/12/20 AGE: 89 : 31 SEX: F ROOM/BED: D.2202 AUTHOR: ROXANN MARKS PHYSICIAN: REFERRING PHYSICIAN: PERCY HINKLE MD DATE OF SERVICE: 03/17/20 Discharge Plan Patient Name: CAITLIN CALIX Facility: [facility]:[place] : 1930 Planned Disposition: Home or Self Care Anticipated Discharge Date: Discharge Date: Expected LOS: Initial Reviewer: [email or web address] Initial Review Date: 03/12/2020 Generated: 03/17/20 4:05 pm Comments DCP- Discharge Planning Updated by [email or web address]: Lorraine Duckworth on 03/17/20 1:[address] Patient Name: CAITLIN CALIX Admission Status: Elective Accout number: [id number] Admission Date: 03-12-2020 : 1930 Admission Diagnosis:CELLULITIS OF LEFT LOWER LIMB Attending: PERCY HINKLE Current LOS: 5 Anticipated DC Date: Planned Disposition: Home or Self Care Primary Insurance: MEDICARE A & B Discharge Planning Comments: CM met with patient to complete initial dc planning assessment. CM educated patient on the CM role and verbal consent given by patient to complete assessment. Patient lives at home with 24/7 care takers with [facility]. At discharge patient plans to return home and feels this is a safe discharge. CM discussed availability of home health, rehab services, and medical equipment. She has an electric wheelchair @ home. She is current with [facility] also. MONICA signed with both [facility] and [facility]. Patient denied known discharge needs at this time. CM will continue to follow and will assist as needed with dc plans/needs. Vest Baster: Lorraine Duckworth DCP- Discharge Planning Updated by [email or web address]: Lorraine Duckworth on 03/13/20 2:[address] RECEIVED A CALL FROM MARIA T CHAN WITH [facility], THE PATIENT HAS 24 HOUR CARE MARIA T CHAN # IS [phone] DCPIA - Discharge Planning Initial Assessment Updated by [email or web address]: Lorraine Duckworth on 03/17/20 2:55 pm * Is the patient Alert and Oriented? Yes * How many steps to enter\exit or inside your home? Ramp * PCP [facility] * Pharmacy [facility] * Preadmission Environment Other * Other Environment HOME WITH 24/7 CARE TAKERS * ADLs Total Dependent * Equipment Bedside Commode Power Chair or Electric Scooter * List name and contact numbers for known caregivers / representatives who currently or will assist patient after discharge: KRISTOPHER CALIX (NIECE) [phone] * Verbal permission to speak to the caregivers and representatives has been obtained from the patient. N/A * Community resources currently utilized [facility] Other Private Duty Care * Please name any agencies selected above. [facility] * Additional services required to return to the preadmission environment? No * Can the patient safely return to the preadmission environment? Yes * Has this patient been hospitalized within the prior 30 days at any hospital? No Last DP export: 03/17/20 1:57 p Patient Name: CAITLIN CALIX Page 26674 at 1505 All edits/amendments must be made on the electronic document DICTATION DATE: 03/17/20 1505 RESPIRATORY PRACTITIONER: MARICARMEN 03/17/20 1505 RPT#: [id number] DC DATE: STATUS: ADM IN [facility] [address] [place] [address] END OF REPORT
[2020-03-17 16:45] VITALS: BP 112/58
[2020-03-17 20:57] VITALS: BP 130/50
[2020-03-18] VITALS (12 sets, daily range): BP systolic 109–165; BP diastolic 43–91
[2020-03-18 04:59] LABS: BASOPHILS 0.1 % (0-2); EOSINOPHILS 2.1 % (0-7); HEMATOCRIT 30.5 % (36.0-48.0); HEMOGLOBIN 9.4 g/dL (12-16); IMMATURE GRANULOCYTES 0.3 % (0-5); LYMPHOCYTES 12.4 % (15-50); MCH 27.5 pg (26.0-34.0); MCHC 30.8 g/dL (31.0-37.0); MCV 89.2 fL (80.0-100.0); MEAN PLATELET VOLUME 9.9 fL (7.4-10.4); MONOCYTES 9.9 % (2-11); NEUTROPHILS 75.2 % (40-80); PLATELET COUNT 209 10x3/uL (130-400); RBC 3.42 10x6/uL (4.00-5.40); RDW 16.1 % (11.5-14.5); WBC 7.1 10x3/uL (4.8-10.8)
[2020-03-18 05:32] LABS: ANION GAP 7.8 mmol/L (8-16); APTT 33.2 SECONDS (22.8-39.4); CALCIUM 8.8 mg/dL (8.5-10.1); CARBON DIOXIDE 28.8 mmol/L (21.0-32.0); CREATININE - SERUM 0.9 mg/dL (0.6-1.3); INR 1.12 (0.85-1.17); POTASSIUM - SERUM 4.6 mmol/L (3.5-5.1); PROTIME 14.4 SECONDS (11.6-15.0)
--- NOTE | 2020-03-18 07:15 | NUR ---
PATIENT CHANGED BY MYSELF AND Tami MAHAJAN RN DURING SHIFT REPORT. SM BM. CL IN REACH. BED ALARM ON. WCTM
--- NOTE | 2020-03-18 12:00 | NUR ---
PATIENT BACK FROM IR. SMALL BLOODY DRAINAGE THE SIZE OF A PEN CAP ON DRESSING. PULSE OX MONITOR APPLIED TO LEFT FOOT BIG TOE TO HELP MONITOR O2 SAT AND PERFUSION TO LOWER EXTREMITY. CL IN REACH. PATIENT ASKED WHAT WAS GIVEN TO HER IN SURGERY I INFORMED HER. CL IN REACH. TM
--- NOTE | 2020-03-18 19:30 | NUR ---
PT IN BED, AAO X 3, RESP EVEN AND UNLABORED. NO DISTRESS NOTED, CL IN REACH, SR UP X 2. PT REQUEST NOT TO HAVE MALE NURSE TAKE CARE OF HER.
--- NOTE | 2020-03-18 20:59 | NUR ---
PATIENT DRESSING CHANGE COMPLETED PER INSTRUCTION. CL IN REACH. BED ALARM ON. NO FURTHER NEEDS AT THIS TIME. WCTM
[2020-03-19 01:11] VITALS: BP 175/60
--- NOTE | 2020-03-19 01:28 | NUR ---
I have reviewed this patient and I concur with the Shift Assessment completed by the Licensed Practical Nurse today this shift.
[2020-03-19 05:14] LABS: BASOPHILS 0.2 % (0-2); HEMATOCRIT 30.8 % (36.0-48.0); HEMOGLOBIN 9.5 g/dL (12-16); IMMATURE GRANULOCYTES 0.2 % (0-5); LYMPHOCYTES 12.8 % (15-50); MCH 27.4 pg (26.0-34.0); MCHC 30.8 g/dL (31.0-37.0); MCV 88.8 fL (80.0-100.0); MEAN PLATELET VOLUME 9.7 fL (7.4-10.4); MONOCYTES 9.6 % (2-11); NEUTROPHILS 75.2 % (40-80); PLATELET COUNT 214 10x3/uL (130-400); RBC 3.47 10x6/uL (4.00-5.40); RDW 15.6 % (11.5-14.5); WBC 6.5 10x3/uL (4.8-10.8)
[2020-03-19 05:22] LABS: ANION GAP 8.6 mmol/L (8-16); CALCIUM 8.9 mg/dL (8.5-10.1); CARBON DIOXIDE 26.8 mmol/L (21.0-32.0); POTASSIUM - SERUM 4.4 mmol/L (3.5-5.1)
[2020-03-19 06:49] VITALS: BP 168/64
[2020-03-19 09:07] VITALS: BP 161/62
--- NOTE | 2020-03-19 13:09 | NUR ---
Nutrition follow-up: Pt s/p lower extremetiy arteriogram; now with good blood flow Diet: low sodium PO intake 25-50% of meals Pt has been NPO for several meals +BM Wt: 120# RDN following.
[2020-03-19 13:45] VITALS: BP 169/60
--- NOTE | 2020-03-19 13:50 | NUR ---
PATIENT NIECE CO OF IV LEAKING. BOTTOM TAPE IS WET. NO SATURATION UNDER IV DRESSING. STATES PATIENT IS CO OF CHEST PAIN. I WENT AND ASKED PATIENT SHE SAID IT WAS LIKE HER HEART WAS IN PAIN. CALLED DR HINKLE. GOT AN ORDER FOR NITROGLYCERIN SL 0.4 NOW. 2 L OF O2. EKG. CARDIAC ENZYMES NOW AND REPEAT IN 4 HOURS.
--- NOTE | 2020-03-19 14:02 | NUR ---
ADMINISTERED SUBLINGUAL NITRO DUE TO COMPLAINT OF CHEST PAINS. TOLERATED WELL.
--- NOTE | 2020-03-19 14:05 | NUR ---
PATIENT STATES NITROGLYCERIN SUBLINGAL HELPED WITH CHEST PAIN. NO COMPLAINTS AT THIS TIME. WCTM
--- NOTE | 2020-03-19 14:42 | NUR ---
PATIENT RESTING AT THIS TIME. KADEEM SUMMERS HAS LEFT. CL IN REACH. BED ALARM ON. SAM RED. ANGIE
[2020-03-19 14:59] LABS: CKMB 3.3 U/L (0.0-3.6); CREATINE KINASE 62 UL (21-215)
[2020-03-19 15:15] LABS: TROPONIN-I 0.852 ng/mL (0.000-0.060)
--- NOTE | 2020-03-19 15:17 | NUR ---
DR HINKLE PAGED ABOUT TROPONIN LEVEL AND CARDIAC AND EKG RESULTS. SPOKE RICHI STOUT WITH DR HINKLE OFFICE.
--- NOTE | 2020-03-19 16:01 | NUR ---
PATIENT HAD A BM. REPLACED MEPILEX ON COCCYX. TURNED TO LEFT SIDE. CL IN REACH. BED ALARM ON. WCTM
[2020-03-19 17:53] VITALS: Ht 157.5 cm; Wt 54.4 kg
[2020-03-19 17:56] VITALS: BP 166/66
--- NOTE | 2020-03-19 18:00 | MORECARE ---
CASE MANAGEMENT DISCHARGE SUMMARY PATIENT: CAITLIN CALIX UNIT: [id number] ADM DATE: 03/12/20 AGE: 89 : 31 SEX: F ROOM/BED: D.2202 AUTHOR: ROXANN MARKS PHYSICIAN: REFERRING PHYSICIAN: PERCY HINKLE MD DATE OF SERVICE: 03/19/20 Discharge Plan Patient Name: CAITLIN CALIX Facility: [facility]:[place] : 1930 Planned Disposition: Home or Self Care Anticipated Discharge Date: Discharge Date: Expected LOS: Initial Reviewer: [email or web address] Initial Review Date: 03/12/2020 Generated: 03/19/20 7:00 pm Comments DCP- Discharge Planning Updated by [id number]: Lorraine Duckworth on 03/17/20 1:[address] Patient Name: CAITLIN CALIX Admission Status: Elective Accout number: [id number] Admission Date: 03-12-2020 : 1930 Admission Diagnosis:CELLULITIS OF LEFT LOWER LIMB Attending: PERCY HINKLE Current LOS: 5 Anticipated DC Date: Planned Disposition: Home or Self Care Primary Insurance: MEDICARE A & B Discharge Planning Comments: CM met with patient to complete initial dc planning assessment. CM educated patient on the CM role and verbal consent given by patient to complete assessment. Patient lives at home with 24/7 care takers with [facility]. At discharge patient plans to return home and feels this is a safe discharge. CM discussed availability of home health, rehab services, and medical equipment. She has an electric wheelchair @ home. She is current with [facility] also. WILBERT signed with both [facility] and [facility]. Patient denied known discharge needs at this time. CM will continue to follow and will assist as needed with dc plans/needs. Traveling Repair Accountant: Lorraine Duckworth DCP- Discharge Planning Updated by [email or web address]: Lorraine Duckworth on 03/13/20 2:[address] RECEIVED A CALL FROM MARIA T CHAN WITH [facility], THE PATIENT HAS 24 HOUR CARE MARIA T CHAN # IS [phone] DCPIA - Discharge Planning Initial Assessment Updated by [email or web address]: Lorraine Duckworth on 03/17/20 2:55 pm * Is the patient Alert and Oriented? Yes * How many steps to enter\exit or inside your home? Ramp * PCP [facility] * Pharmacy [facility] * Preadmission Environment Other * Other Environment HOME WITH 24/7 CARE TAKERS * ADLs Total Dependent * Equipment Bedside Commode Power Chair or Electric Scooter * List name and contact numbers for known caregivers / representatives who currently or will assist patient after discharge: KRISTOPHER CALIX (NIECE) [phone] * Verbal permission to speak to the caregivers and representatives has been obtained from the patient. N/A * Community resources currently utilized [facility] Other Private Duty Care * Please name any agencies selected above. [facility] * Additional services required to return to the preadmission environment? No * Can the patient safely return to the preadmission environment? Yes * Has this patient been hospitalized within the prior 30 days at any hospital? No Coverage Notice Reviewer: [id number] Luda Duckworth Notice Issued Date-Time: 03/17/2020 14:30 Notice Type: Patient Choice Letter Notice Delivered To: Patient Relationship to Patient: Critical Care Specialist Name: Delivery Method: MAIL - Mail Mohini Days: Prior Verbal Notification: Recipient Understood Notice: Yes Recipient Signature: Yes Med Rec Note Co-signed by Attending: Coverage Notice Comment: wilbert with [facility] Last DP export: 03/17/20 2:05 p Patient Name: CAITLIN CALIX Page 87469 at 1800 All edits/amendments must be made on the electronic document DICTATION DATE: 03/19/20 1800 GOVERNMENT TEACHER: MARICARMEN 03/19/20 1800 RPT#: [id number] DC DATE: STATUS: ADM IN [facility] [address] [place] [address] END OF REPORT
--- NOTE | 2020-03-19 18:00 | NUR ---
BLE DRESSINGS CHANGED PER NURSING INSTRUCTION. FAMILY FRIEND IN ROOM. CL IN REACH. WCTM
[2020-03-19 18:41] LABS: CREATINE KINASE 81 UL (21-215)
[2020-03-19 19:03] LABS: TROPONIN-I 0.719 ng/mL (0.000-0.060)
[2020-03-19 20:00] VITALS: BP 156/60
[2020-03-20] VITALS: BP 151/61
[2020-03-20 04:00] VITALS: BP 128/55
[2020-03-20 06:53] LABS: BASOPHILS 0.1 % (0-2); EOSINOPHILS 1.4 % (0-7); HEMATOCRIT 31.9 % (36.0-48.0); HEMOGLOBIN 9.8 g/dL (12-16); IMMATURE GRANULOCYTES 0.3 % (0-5); LYMPHOCYTES 10.8 % (15-50); MCH 27.2 pg (26.0-34.0); MCHC 30.7 g/dL (31.0-37.0); MCV 88.6 fL (80.0-100.0); MEAN PLATELET VOLUME 9.9 fL (7.4-10.4); MONOCYTES 11.5 % (2-11); NEUTROPHILS 75.9 % (40-80); PLATELET COUNT 235 10x3/uL (130-400); RDW 15.3 % (11.5-14.5); WBC 7.2 10x3/uL (4.8-10.8)
[2020-03-20 07:05] LABS: ANION GAP 12.9 mmol/L (8-16); CALCIUM 8.6 mg/dL (8.5-10.1); CARBON DIOXIDE 24.7 mmol/L (21.0-32.0); CREATININE - SERUM 0.9 mg/dL (0.6-1.3); POTASSIUM - SERUM 4.6 mmol/L (3.5-5.1)
[2020-03-20 08:29] LABS: CKMB 1.5 U/L (0.0-3.6); CREATINE KINASE 56 UL (21-215); TROPONIN-I 0.353 ng/mL (0.000-0.060)
[2020-03-20 15:13] VITALS: BP 140/56
[2020-03-20 15:27] VITALS: BP 111/43
[2020-03-20 18:43] VITALS: BP 110/48
--- NOTE | 2020-03-20 18:52 | NUR ---
I have reviewed this patient and I concur with the Shift Assessment completed by the Licensed Practical Nurse today this shift.
[2020-03-20 20:00] VITALS: BP 100/50
[2020-03-21] VITALS: BP 99/39
--- NOTE | 2020-03-21 00:03 | NUR ---
ASSESSED AT THE BEGINNING OF THE SHIFT. PT IS DROWSY AND HAS A SITTER WITH HER UNTIL 2200. THEY WERE WATCHING TV UNTIL THE SITTER WENT HOME AND AND THEN SHE WENT TO SLEEP.
[2020-03-21 04:00] VITALS: BP 123/48
--- NOTE | 2020-03-21 05:53 | NUR ---
DRESSINGS WERE TAKEN OFF BOTH LEGS AND LEGS WERE CLEANED WITH MARINE MECHANIC AND 4X4'S. THE ADAPTIC WAS PLACED OVER WOUNDS AND COVERED WITH 4X4'S AND KERLIX. SECURED WITH TAPE. PT TOLERATED WELL.
[2020-03-21 06:43] LABS: BASOPHILS 0.3 % (0-2); EOSINOPHILS 1.6 % (0-7); HEMATOCRIT 29.8 % (36.0-48.0); HEMOGLOBIN 9.1 g/dL (12-16); IMMATURE GRANULOCYTES 0.4 % (0-5); LYMPHOCYTES 11.8 % (15-50); MCH 27.2 pg (26.0-34.0); MCHC 30.5 g/dL (31.0-37.0); MEAN PLATELET VOLUME 9.6 fL (7.4-10.4); MONOCYTES 10.4 % (2-11); NEUTROPHILS 75.5 % (40-80); PLATELET COUNT 228 10x3/uL (130-400); RBC 3.35 10x6/uL (4.00-5.40); RDW 15.5 % (11.5-14.5); WBC 7.4 10x3/uL (4.8-10.8)
[2020-03-21 07:07] LABS: ANION GAP 9.9 mmol/L (8-16); CALCIUM 9.1 mg/dL (8.5-10.1); CARBON DIOXIDE 27.2 mmol/L (21.0-32.0); POTASSIUM - SERUM 5.1 mmol/L (3.5-5.1)
--- NOTE | 2020-03-21 07:15 | NUR ---
REC'D IN BED AWAKE AND ALERT. NO RESP DISTRESS NOTED OR VOICED. NO C/O NOTED OF YET. CAN EXPRESS NEEDS AND WANTS. DRESSING CLEAN, DRY AND INTACT TO BLE. ASSESSMENT COMPLETED. C/L IN REACH AT BEDSIDE.
[2020-03-21 07:18] LABS: CREATININE - SERUM 1.4 mg/dL (0.6-1.3)
[2020-03-21 08:41] VITALS: BP 130/50
--- NOTE | 2020-03-21 10:43 | NUR ---
DRESSING CHANGES TO RIGHT LOWER EXT. AT THIS TIME. POA AND C/L IN REACH AT BEDSIDE.
[2020-03-21 12:16] VITALS: BP 105/40
[2020-03-21 16:15] VITALS: BP 99/43
--- NOTE | 2020-03-21 18:23 | NUR ---
I have reviewed this patient and I concur with the Shift Assessment completed by the Licensed Practical Nurse today this shift.
[2020-03-21 20:00] VITALS: BP 100/40
--- NOTE | 2020-03-21 20:00 | NUR ---
PATIENT RESTING IN BED WITH GUEST AT BEDSIDE. PATIENT DENIES NEEDS AT THIS TIME. BED IN LOWEST POSITION AND CALL LIGHT WITHIN REACH. ENCOURAGED THE PATIENT TO CALL IF SHE HAS NEEDS. WILL CONTINUE TO MONITOR.
--- NOTE | 2020-03-21 21:18 | NUR ---
ADMINISTERED MEDS PER ORDERS. PATIENT DENIES OTHER NEEDS. WILL CONTINUE TO MONITOR.
[2020-03-22] VITALS (7 sets, daily range): BP systolic 89–118; BP diastolic 34–57
--- NOTE | 2020-03-22 09:00 | NUR ---
ALERT AND ORIENTED X4. DRESSINGS INTACT TO BLE W/O ANY PERIPHERAL EDEMA WITH PEDAL PULSES NOTED. TELEMETRY INTACT. TYLENOL WITH CODEINE GIVEN PRN FOR PAIN MANAGMENT ADN EFECTIVE. 02 2L N/C. LUNGS DIMINISHED X4 ANTERIOR. TAKES MEDS WHOLE WITH WATER. ENCOURAGED TO USE CALL LIGHT FOR ASSSIT AND VERBLAIZED UNDERSTANDING.
[2020-03-23] VITALS (7 sets, daily range): BP systolic 104–157; BP diastolic 42–59
[2020-03-23 04:13] LABS: ANION GAP 8.4 mmol/L (8-16); CALCIUM 8.6 mg/dL (8.5-10.1); CARBON DIOXIDE 28.5 mmol/L (21.0-32.0)
[2020-03-23 04:18] LABS: CREATININE - SERUM 1.9 mg/dL (0.6-1.3); POTASSIUM - SERUM 5.9 mmol/L (3.5-5.1)
--- NOTE | 2020-03-23 09:10 | EC ---
PATIENT:CAITLIN CALIX DATE OF SERVICE: 03/12/20 SEX: F MEDICAL RECORD: [id number] DATE OF : 32 LOCATION:[facility] AGE OF PATIENT: 89 ADMISSION DATE: 03/12/20 REFERRING PHYSICIAN: INTERPRETING PHYSICIAN: MARIO HARO MD ECHOCARDIOGRAM REPORT ECHO CHARGES 4 ECHO COMPLETE Date: 03/20/20 CLINICAL DIAGNOSIS: ELEVATED TROPONIN ECHOCARDIOGRAPHIC MEASUREMENTS (adult normal given) AC root (d.<3.7cm) 3.1 cm LV Septum d (<1.2 cm> 1.3 cm Valve Excursion 1.9 cm LV Septum (systole) 1.6 cm Left Atria (s.<4.0cm> 3.8 cm LVPW d(<1.2cm) 1.6 cm RV (d.<2.3cm) 4.8 cm LVPW (sytole) 1.7 cm LV diastole(<5.6CM) 4.2 cm MV E-F(>70mm/sec) cm LV systole 2.6 cm LVOT Diameter 1.5 cm MV exc.(>10mm) 1.7 cm Est.ejection fraction (50-75%) % DOPPLER: LVIT cm/sec A 112.0cm/sec E 81.0 cm/sec LA cm/sec RVSP 50 mmHg LVOT 124 cm/sec AOP1/2T 850 m/s Asc. Ao 187 cm/sec RVOT 94 cm/sec RA cm/sec PA 124 cm/sec AV Gradient Peak 13.93mmHg AV Mean 7.73 mmHg AV Area 1.4 cm MV Gradient Peak 6.78 mmHg MV Mean 1.72 mmHg MV Area cm COMMENTS: Special Education Instructor: 2 FADY MORRISON Telephone Assembler: 3 Dr. Perry TAPE# PACS Pericardial Effusion N DATE OF SERVICE: Adequate 2D, color flow imaging, spectral Doppler, and M-Mode. Mild LVH. LV internal dimension is normal. Wall motion is normal. EF is greater than or equal to 55%. Aortic valve sclerosis without stenosis by Doppler interrogation. Left atrium is normal at 3.8 cm. Mitral valve shows no prolapse. Mild MR. Right-sided chambers are grossly normal. Mild TR. TRANSINT:[id number] Voice Confirmation ID: [id number] DOCUMENT ID: [id number] ECHOCARDIOGRAM REPORT [id number] CAITLIN CALIX,MARIO Doss MD at 0910 CC: [id number] DICTATION DATE: 03/20/20 1156 SAMPLE PATTERNMAKER: 03/20/20 1252 ADM IN [facility] [address] [id number]
--- NOTE | 2020-03-23 12:48 | NUR ---
Nutrition follow-up: Pt reports feeling better. Diet: Low sodium PO intake ~50% average of meals Labs reviewed +BM Wt: 119# Will continue to encourage increased po intake and honor food preferences; offer nutritional supplements. RDN following.
--- NOTE | 2020-03-23 18:08 | NUR ---
REQUESTED AND GIVEN ONE TYLENOL #3 PO FOR C/O BACK PAIN LEVEL 7. WILL MONITOR.
[2020-03-24 04:00] VITALS: BP 155/60
[2020-03-24 05:48] LABS: ANION GAP 10.7 mmol/L (8-16); CALCIUM 8.4 mg/dL (8.5-10.1); CARBON DIOXIDE 26.9 mmol/L (21.0-32.0)
[2020-03-24 05:55] LABS: CREATININE - SERUM 1.3 mg/dL (0.6-1.3); POTASSIUM - SERUM 4.6 mmol/L (3.5-5.1)
[2020-03-24] MEDS ORDERED: PLAVIX75 MG PO (07:08)
[2020-03-24] MEDS ORDERED: ZYVOX600 MG PO (07:08)
[2020-03-24] MEDS ORDERED: ISOSORBIDE DINI10 MG PO (07:08)
[2020-03-24] MEDS ORDERED: PROTONIX40 MG PO (07:09)
[2020-03-24] MEDS ORDERED: ASPIRIN81 MG PO (07:09)
[2020-03-24] MEDS ORDERED: LEVOTHYROXINE100 MCG PO (07:10)
[2020-03-24 08:14] VITALS: BP 179/69
--- NOTE | 2020-03-24 10:20 | MORECARE ---
CASE MANAGEMENT DISCHARGE SUMMARY PATIENT: PHYLLIS KINGSTON UNIT: [id number] ADM DATE: 03/12/20 AGE: 89 : 31 SEX: F ROOM/BED: D.2202 AUTHOR: SELINA,DOC PHYSICIAN: REFERRING PHYSICIAN: PERCY HINKLE MD DATE OF SERVICE: 03/24/20 Discharge Plan Patient Name: PHYLLIS KINGSTON Facility: [facility]:[place] : 1930 Planned Disposition: Home or Self Care Anticipated Discharge Date: Discharge Date: Expected LOS: Initial Reviewer: [email or web address] Initial Review Date: 03/12/2020 Generated: 03/24/20 11:19 am Comments DCP- Discharge Planning Updated by [email or web address]: Harriett Chaparro on 03/24/20 9:[address] CM met with patient to verify no additional needs. DC IMM signed, given to patient and one placed on the chart. CM notified Latoya with [facility] ([phone]) regarding DC orders. Per Latoya, [facility] will resume 03/25. CM faxed orders, DC instructions to [phone]. DCP- Discharge Planning Updated by [email or web address]: Lorraine Duckworth on 03/17/20 1:[address] Patient Name: PHYLLIS KINGSTON Admission Status: Elective Accout number: [id number] Admission Date: 03-12-2020 : 1930 Admission Diagnosis:CELLULITIS OF LEFT LOWER LIMB Attending: PERCY HINKLE Current LOS: 5 Anticipated DC Date: Planned Disposition: Home or Self Care Primary Insurance: MEDICARE A & B Discharge Planning Comments: CM met with patient to complete initial dc planning assessment. CM educated patient on the CM role and verbal consent given by patient to complete assessment. Patient lives at home with 24/7 care takers with [facility]. At discharge patient plans to return home and feels this is a safe discharge. CM discussed availability of home health, rehab services, and medical equipment. She has an electric wheelchair @ home. She is current with [facility] also. WILBERT signed with both [facility] and [facility]. Patient denied known discharge needs at this time. CM will continue to follow and will assist as needed with dc plans/needs. Animal Humane Agent Supervisor: Lorraine Duckworth DCP- Discharge Planning Updated by [id number]: Lorraine Duckworth on 03/13/20 2:[address] RECEIVED A CALL FROM MARIA T CHAN WITH [facility], THE PATIENT HAS 24 HOUR CARE MARIA T CHAN # IS [phone] DCPIA - Discharge Planning Initial Assessment Updated by [id number]: Lorraine Duckworth on 03/17/20 2:55 pm * Is the patient Alert and Oriented? Yes * How many steps to enter\exit or inside your home? Ramp * PCP CHADIAN * Pharmacy [facility] * Preadmission Environment Other * Other Environment HOME WITH 24/7 CARE TAKERS * ADLs Total Dependent * Equipment Bedside Commode Power Chair or Electric Scooter * List name and contact numbers for known caregivers / representatives who currently or will assist patient after discharge: KRISTOPHER KINGSTON ([place]) [phone] * Verbal permission to speak to the caregivers and representatives has been obtained from the patient. N/A * Community resources currently utilized [facility] Other Private Duty Care * Please name any agencies selected above. [facility] * Additional services required to return to the preadmission environment? No * Can the patient safely return to the preadmission environment? Yes * Has this patient been hospitalized within the prior 30 days at any hospital? No Coverage Notice Reviewer: [id number] - Lorraine Duckworth Notice Issued Date-Time: 03/17/2020 14:30 Notice Type: Patient Choice Letter Notice Delivered To: Patient Relationship to Patient: Artificial Breeding Distributor Name: Delivery Method: MAIL - Mail Mohini Days: Prior Verbal Notification: Recipient Understood Notice: Yes Recipient Signature: Yes Med Rec Note Co-signed by Attending: Coverage Notice Comment: wilbert with [facility] Reviewer: [id number] Luda Chaparro Notice Issued Date-Time: 03/24/2020 10:08 Notice Type: IM Discharge Notice Notice Delivered To: Patient Relationship to Patient: Self Artificial Breeding Distributor Name: Phyllis Kingston Delivery Method: HAND - Hand Delivered Mohini Days: Prior Verbal Notification: Recipient Understood Notice: Yes Recipient Signature: Yes Med Rec Note Co-signed by Attending: Coverage Notice Comment: DC IMM signed by and given to patient. Original to chart. Last DP export: 03/19/20 5:01 p Patient Name: PHYLLIS KINGSTON Page [phone] at 1020 All edits/amendments must be made on the electronic document DICTATION DATE: 03/24/20 1019 HEALTH CAREERS INSTRUCTOR: MARICARMEN 03/24/20 1019 RPT#: [id number] DC DATE: STATUS: ADM IN [facility] [address] [place] [address] END OF REPORT
--- NOTE | 2020-03-24 10:46 | MORECARE ---
CASE MANAGEMENT DISCHARGE SUMMARY PATIENT: PHYLLIS KINGSTON UNIT: [id number] ADM DATE: 03/12/20 AGE: 89 : 31 SEX: F ROOM/BED: D.2202 AUTHOR: SELINADOC PHYSICIAN: REFERRING PHYSICIAN: PERCY HINKLE MD DATE OF SERVICE: 03/24/20 Discharge Plan Patient Name: PHYLLIS KINGSTON Facility: [facility]:[place] : 1930 Planned Disposition: Home or Self Care Anticipated Discharge Date: 03/24/20 Discharge Date: Expected LOS: 12 Initial Reviewer: [email or web address] Initial Review Date: 03/12/2020 Generated: 03/24/20 11:45 am Comments DCP- Discharge Planning Updated by [email or web address]: Harriett Chaparro on 03/24/20 9:[address] CM met with patient to verify no additional needs. DC IMM signed, given to patient and one placed on the chart. CM notified Latoya with [facility] ([phone]) regarding DC orders. Per Latoya, [facility] will resume 03/25. CM faxed orders, DC instructions to [phone]. DCP- Discharge Planning Updated by [email or web address]: Lorraine Duckworth on 03/17/20 1:[address] Patient Name: PHYLLIS KINGSTON Admission Status: Elective Accout number: [id number] Admission Date: 03-12-2020 : 1930 Admission Diagnosis:CELLULITIS OF LEFT LOWER LIMB Attending: PERCY HINKLE Current LOS: 5 Anticipated DC Date: Planned Disposition: Home or Self Care Primary Insurance: MEDICARE A & B Discharge Planning Comments: CM met with patient to complete initial dc planning assessment. CM educated patient on the CM role and verbal consent given by patient to complete assessment. Patient lives at home with 24/7 care takers with [facility]. At discharge patient plans to return home and feels this is a safe discharge. CM discussed availability of home health, rehab services, and medical equipment. She has an electric wheelchair @ home. She is current with [facility] also. MONICA signed with both [facility] and [facility]. Patient denied known discharge needs at this time. CM will continue to follow and will assist as needed with dc plans/needs. Gridcap Machine Operator: Lorraine Duckworth DCP- Discharge Planning Updated by [id number]: Lorraine Duckworth on 03/13/20 2:[address] RECEIVED A CALL FROM MARIA T CHAN WITH [facility], THE PATIENT HAS 24 HOUR CARE MARIA T CHAN # IS [phone] DCPIA - Discharge Planning Initial Assessment Updated by [email or web address]: Lorraine Duckworth on 03/17/20 2:55 pm * Is the patient Alert and Oriented? Yes * How many steps to enter\exit or inside your home? Ramp * PCP ANGUILLAN * Pharmacy [facility] * Preadmission Environment Other * Other Environment HOME WITH 24/7 CARE TAKERS * ADLs Total Dependent * Equipment Bedside Commode Power Chair or Electric Scooter * List name and contact numbers for known caregivers / representatives who currently or will assist patient after discharge: KRISTOPHER KINGSTON ([place]IE[place]) [phone] * Verbal permission to speak to the caregivers and representatives has been obtained from the patient. N/A * Community resources currently utilized [facility] Other Private Duty Care * Please name any agencies selected above. [facility] * Additional services required to return to the preadmission environment? No * Can the patient safely return to the preadmission environment? Yes * Has this patient been hospitalized within the prior 30 days at any hospital? No External Providers External Provider: [facility] Next Contact Date: Service Request Date: Service Type: Resolution: Reviewer: Comments: Coverage Notice Reviewer: [id number] - Lorraine Duckworth Notice Issued Date-Time: 03/17/2020 14:30 Notice Type: Patient Choice Letter Notice Delivered To: Patient Relationship to Patient: Candlemaking Laborer Name: Delivery Method: MAIL - Mail Mohini Days: Prior Verbal Notification: Recipient Understood Notice: Yes Recipient Signature: Yes Med Rec Note Co-signed by Attending: Coverage Notice Comment: monica with [facility] Reviewer: [id number] Luda Chaparro Notice Issued Date-Time: 03/24/2020 10:08 Notice Type: IM Discharge Notice Notice Delivered To: Patient Relationship to Patient: Self Candlemaking Laborer Name: Phyllis Kingston Delivery Method: HAND - Hand Delivered Mohini Days: Prior Verbal Notification: Recipient Understood Notice: Yes Recipient Signature: Yes Med Rec Note Co-signed by Attending: Coverage Notice Comment: DC IMM signed by and given to patient. Original to chart. Last DP export: 03/24/20 9:20 am Patient Name: PHYLLIS KINGSTON Page [phone] at 1046 All edits/amendments must be made on the electronic document DICTATION DATE: 03/24/20 1045 ROOF BOLTER HELPER: MARICARMEN 03/24/20 1045 RPT#: [id number] DC DATE: STATUS: ADM IN [facility] [address] [place] [address] END OF REPORT
--- NOTE | 2020-03-24 13:05 | MORECARE ---
CASE MANAGEMENT DISCHARGE SUMMARY PATIENT: PHYLLIS KINGSTON UNIT: [id number] ADM DATE: 03/12/20 AGE: 89 : 31 SEX: F ROOM/BED: D.2202 AUTHOR: SELINADOC PHYSICIAN: REFERRING PHYSICIAN: PERCY HINKLE MD DATE OF SERVICE: 03/24/20 Discharge Plan Patient Name: PHYLLIS KINGSTON Facility: [facility]:[place] : 1930 Planned Disposition: Home Health Service Anticipated Discharge Date: 03/24/20 Discharge Date: Expected LOS: 12 Initial Reviewer: [id number] Initial Review Date: 03/12/2020 Generated: 03/24/20 2:05 pm Comments DCP- Discharge Planning Updated by [email or web address]: Harriett Chaparro on 03/24/20 9:[address] CM met with patient to verify no additional needs. DC IMM signed, given to patient and one placed on the chart. CM notified Latoya with [facility] ([phone]) regarding DC orders. Per Latoya, [facility] will resume 03/25. CM faxed orders, DC instructions to [phone]. DCP- Discharge Planning Updated by [email or web address]: Lorraine Duckworth on 03/17/20 1:[address] Patient Name: PHYLLIS KINGSTON Admission Status: Elective Accout number: [id number] Admission Date: 03-12-2020 : 1930 Admission Diagnosis:CELLULITIS OF LEFT LOWER LIMB Attending: PERCY HINKLE Current LOS: 5 Anticipated DC Date: Planned Disposition: Home or Self Care Primary Insurance: MEDICARE A & B Discharge Planning Comments: CM met with patient to complete initial dc planning assessment. CM educated patient on the CM role and verbal consent given by patient to complete assessment. Patient lives at home with 24/7 care takers with [facility]. At discharge patient plans to return home and feels this is a safe discharge. CM discussed availability of home health, rehab services, and medical equipment. She has an electric wheelchair @ home. She is current with [facility] also. WILBERT signed with both [facility] and [facility]. Patient denied known discharge needs at this time. CM will continue to follow and will assist as needed with dc plans/needs. Drycleaner: Lorraine Duckworth DCP- Discharge Planning Updated by [email or web address]: Lorraine Duckworth on 03/13/20 2:[address] RECEIVED A CALL FROM MARIA T CHAN WITH [facility], THE PATIENT HAS 24 HOUR CARE MARIA T CHAN # IS [phone] DCPIA - Discharge Planning Initial Assessment Updated by [email or web address]: Lorraine Duckworth on 03/17/20 2:55 pm * Is the patient Alert and Oriented? Yes * How many steps to enter\exit or inside your home? Ramp * PCP UPPER SORBIAN * Pharmacy [facility] * Preadmission Environment Other * Other Environment HOME WITH 24/7 CARE TAKERS * ADLs Total Dependent * Equipment Bedside Commode Power Chair or Electric Scooter * List name and contact numbers for known caregivers / representatives who currently or will assist patient after discharge: KRISTOPHER KINGSTON (NIECE) [phone] * Verbal permission to speak to the caregivers and representatives has been obtained from the patient. N/A * Community resources currently utilized [facility] Other Private Duty Care * Please name any agencies selected above. [facility] * Additional services required to return to the preadmission environment? No * Can the patient safely return to the preadmission environment? Yes * Has this patient been hospitalized within the prior 30 days at any hospital? No Coverage Notice Reviewer: [id number] - Lorraine Duckworth Notice Issued Date-Time: 03/17/2020 14:30 Notice Type: Patient Choice Letter Notice Delivered To: Patient Relationship to Patient: Clinic Specialist Name: Delivery Method: MAIL - Mail Mohini Days: Prior Verbal Notification: Recipient Understood Notice: Yes Recipient Signature: Yes Med Rec Note Co-signed by Attending: Coverage Notice Comment: wilbert with [facility] Reviewer: [id number] - Harriett Chaparro Notice Issued Date-Time: 03/24/2020 10:08 Notice Type: IM Discharge Notice Notice Delivered To: Patient Relationship to Patient: Self Clinic Specialist Name: Phyllis Kingston Delivery Method: HAND - Hand Delivered Mohini Days: Prior Verbal Notification: Recipient Understood Notice: Yes Recipient Signature: Yes Med Rec Note Co-signed by Attending: Coverage Notice Comment: DC IMM signed by and given to patient. Original to chart. Last DP export: 03/24/20 9:46 am Patient Name: PHYLLIS KINGSTON Page [phone] at 1305 All edits/amendments must be made on the electronic document DICTATION DATE: 03/24/20 1305 PATENT EXAMINER: MARICARMEN 03/24/20 1305 RPT#: [id number] DC DATE: STATUS: ADM IN [facility] [address] [place] [address] END OF REPORT
--- NOTE | 2020-03-24 16:16 | MORECARE ---
CASE MANAGEMENT DISCHARGE SUMMARY PATIENT: PHYLLIS KINGSTON UNIT: [id number] ADM DATE: 03/12/20 AGE: 89 : 31 SEX: F ROOM/BED: D.2202 AUTHOR: SELINADOC PHYSICIAN: REFERRING PHYSICIAN: PERCY HINKLE MD DATE OF SERVICE: 03/24/20 Discharge Plan Patient Name: PHYLLIS KINGSTON Facility: [facility]:[place] : 1930 Planned Disposition: Home Health Service Anticipated Discharge Date: 03/24/20 Discharge Date: 03/24/2020 Expected LOS: 12 Initial Reviewer: [id number] Initial Review Date: 03/12/2020 Generated: 03/24/20 5:15 pm Comments DCP- Discharge Planning Updated by [id number]: Harriett Chaparro on 03/24/20 3:[address] Madisyn, with [facility] request one week of progress notes, along with DC medications. Faxed. CM met with patient to verify no additional needs. DC IMM signed, given to patient and one placed on the chart. CM notified Latoya, with [facility] ([phone]) regarding DC orders. Per Latoya, [facility] will resume 03/25. CM faxed orders, DC instructions to [phone]. DCP- Discharge Planning Updated by [id number]: Lorraine Duckworth on 03/17/20 1:[address] Patient Name: PHYLLIS KINGSTON Admission Status: Elective Accout number: [id number] Admission Date: 03-12-2020 : 1930 Admission Diagnosis:CELLULITIS OF LEFT LOWER LIMB Attending: PERCY HINKLE Current LOS: 5 Anticipated DC Date: Planned Disposition: Home or Self Care Primary Insurance: MEDICARE A & B Discharge Planning Comments: CM met with patient to complete initial dc planning assessment. CM educated patient on the CM role and verbal consent given by patient to complete assessment. Patient lives at home with 24/7 care takers with [facility]. At discharge patient plans to return home and feels this is a safe discharge. CM discussed availability of home health, rehab services, and medical equipment. She has an electric wheelchair @ home. She is current with [facility] also. WILBERT signed with both [facility] and [facility]. Patient denied known discharge needs at this time. CM will continue to follow and will assist as needed with dc plans/needs. Strip Deburrer: Lorraine Duckworth DCP- Discharge Planning Updated by [id number]: Lorraine Duckworth on 03/13/20 2:[address] RECEIVED A CALL FROM MARIA T CHAN WITH [facility], THE PATIENT HAS 24 HOUR CARE MARIA T CHAN # IS [phone] DCPIA - Discharge Planning Initial Assessment Updated by [email or web address]: Lorraine Duckworth on 03/17/20 2:55 pm * Is the patient Alert and Oriented? Yes * How many steps to enter\exit or inside your home? Ramp * PCP BENGALI * Pharmacy [facility] * Preadmission Environment Other * Other Environment HOME WITH 24/7 CARE TAKERS * ADLs Total Dependent * Equipment Bedside Commode Power Chair or Electric Scooter * List name and contact numbers for known caregivers / representatives who currently or will assist patient after discharge: KRISTOPHER KINGSTON ([facility]) [phone] * Verbal permission to speak to the caregivers and representatives has been obtained from the patient. N/A * Community resources currently utilized [facility] Other Private Duty Care * Please name any agencies selected above. [facility] * Additional services required to return to the preadmission environment? No * Can the patient safely return to the preadmission environment? Yes * Has this patient been hospitalized within the prior 30 days at any hospital? No Coverage Notice Reviewer: [id number] - Lorraine Duckworth Notice Issued Date-Time: 03/17/2020 14:30 Notice Type: Patient Choice Letter Notice Delivered To: Patient Relationship to Patient: Candy Depositing Machine Operator Name: Delivery Method: MAIL - Mail Mohini Days: Prior Verbal Notification: Recipient Understood Notice: Yes Recipient Signature: Yes Med Rec Note Co-signed by Attending: Coverage Notice Comment: wilbert with [facility] Reviewer: [id number] - Harriett Chaparro Notice Issued Date-Time: 03/24/2020 10:08 Notice Type: IM Discharge Notice Notice Delivered To: Patient Relationship to Patient: Self Candy Depositing Machine Operator Name: Phyllis Kingston Delivery Method: HAND - Hand Delivered Mohini Days: Prior Verbal Notification: Recipient Understood Notice: Yes Recipient Signature: Yes Med Rec Note Co-signed by Attending: Coverage Notice Comment: DC IMM signed by and given to patient. Original to chart. Last DP export: 03/24/20 12:05 pm Patient Name: PHYLLIS KINGSTON Page [phone] at 1616 All edits/amendments must be made on the electronic document DICTATION DATE: 03/24/20 1615 JOB LITHOGRAPHER: MARICARMEN 03/24/20 1615 RPT#: [id number] DC DATE:03/24/20 STATUS: DIS IN [facility] [address] [place] [address] END OF REPORT
== END 2020-03-24 14:17 | disposition home health service (06) | DRG 579 ==
LOC: D.MS 10:31
PROVIDERS: Family Medicine; Specialist; ADMIT Family Medicine; ATTEND Family Medicine
PROC: 047L3DZ Dilation of Left Femoral Artery with Intraluminal Device, Percutaneous Approach (ICD-10-PCS; principal; 2020-03-18 10:58)
DX: L03.116 Cellulitis of left lower limb (principal); I21.A1 Myocardial infarction type 2; L03.115 Cellulitis of right lower limb; I73.9 Peripheral vascular disease, unspecified; K21.9 Gastro-esophageal reflux disease without esophagitis; E03.9 Hypothyroidism, unspecified; S81.811A Laceration without foreign body, right lower leg, initial encounter; W19.XXXA Unspecified fall, initial encounter; M41.9 Scoliosis, unspecified; B95.61 Methicillin susceptible Staphylococcus aureus infection as the cause of diseases classified elsewhere; Z66 Do not resuscitate; I10 Essential (primary) hypertension; E87.5 Hyperkalemia; I20.9 Angina pectoris, unspecified

== ENCOUNTER → 2020-04-22 13:49 | Outpatient (CLI) | payer MEDICARE, BC ==
[2020-03-19 17:53] VITALS: BMI 21.9
[~2020-04-22 13:49] MED LIST changes: +ASPIRIN81 MG PO; +ISOSORBIDE DINI10 MG PO; +PLAVIX75 MG PO; +PROTONIX40 MG PO; +ZYVOX600 MG PO
[2020-04-22 14:27] LABS: ANION GAP 9.3 mmol/L (8-16); CARBON DIOXIDE 28.7 mmol/L (21.0-32.0); CREATININE - SERUM 1.2 mg/dL (0.6-1.3)
== END | disposition home or self-care (01) ==
LOC: D.LABREF 13:49
PROVIDERS: ATTEND Family Medicine
DX: T14.8XXA Other injury of unspecified body region, initial encounter (principal); X58.XXXA Exposure to other specified factors, initial encounter

== ENCOUNTER 2020-05-13 12:30 | Inpatient (IN) | payer MEDICARE, BC ==
[~2020-05-13] VITALS: Ht 157.5 cm; Wt 56.0 kg
[2020-05-13] VITALS (8 sets, daily range): BP systolic 164–236; BP diastolic 68–98
[2020-05-13 13:40] LABS: BASOPHILS 0.4 % (0-2); CALCIUM 9.2 mg/dL (8.5-10.1); CARBON DIOXIDE 31.3 mmol/L (21.0-32.0); CREATININE - SERUM 1.1 mg/dL (0.6-1.3); EOSINOPHILS 3.9 % (0-7); HEMATOCRIT 31.5 % (36.0-48.0); HEMOGLOBIN 9.5 g/dL (12-16); IMMATURE GRANULOCYTES 0.1 % (0-5); LYMPHOCYTES 17.1 % (15-50); MCH 27.5 pg (26.0-34.0); MCHC 30.2 g/dL (31.0-37.0); MCV 91.3 fL (80.0-100.0); MEAN PLATELET VOLUME 9.1 fL (7.4-10.4); MONOCYTES 8.8 % (2-11); NEUTROPHILS 69.7 % (40-80); PLATELET COUNT 217 10x3/uL (130-400); POTASSIUM - SERUM 4.3 mmol/L (3.5-5.1); RBC 3.45 10x6/uL (4.00-5.40); RDW 17.8 % (11.5-14.5); WBC 6.7 10x3/uL (4.8-10.8)
[2020-05-13 13:57] LABS: ALBUMIN 2.8 g/dL (3.4-5.0); BILIRUBIN - TOTAL 0.29 mg/dL (0.2-1.3); C-REACTIVE PROTEIN 2.6 mg/dL (0.0-0.9); PROTEIN - SERUM 5.9 g/dL (6.4-8.2)
--- NOTE | 2020-05-13 16:34 | NUR ---
DR RYAN NOTIFIED ELEVATED BP AT THIS TIME. AWAITING ORDERS.
--- NOTE | 2020-05-13 18:15 | NUR ---
REPORT GIVEN TO AMAYA RODNEY. BED IS DIRTY, FLOOR WILL CALL WHEN ROOM IS CLEAN.
--- NOTE | 2020-05-13 19:23 | NUR ---
CONTACTED FLOOR, PT'S ROOM STILL DIRTY AT THIS TIME.
--- NOTE | 2020-05-13 20:19 | NUR ---
SPOKE WITH PT'S NIECE KRISTOPHER MICHELLE AND INFORMED HER THAT PT IS STABLE, IS GOING TO BE ADMITTED TO HOSPITAL FOR CHF EXACERBATION AND THAT PT HAS A ROOM BUT IS CURRENTLY WAITING FOR IT TO BE CLEANED.
--- NOTE | 2020-05-13 21:30 | NUR ---
CALLED FLOOR STATES [facility] IS CURRENTLY CLEANING PT'S ROOM AT THIS TIME. WILL CALL WHEN FINISHED.
--- NOTE | 2020-05-13 22:49 | NUR ---
PT FROM ER VIA STRETCHER, PT MOVED TO BED, RESP EVEN AND UNLABORED. NO DISTRESS NOTED,CL IN REACH, SR UP X 2.
[2020-05-14] VITALS: BP 158/65
[2020-05-14 04:00] VITALS: BP 157/68
--- NOTE | 2020-05-14 07:36 | NUR ---
PT LAYING IN BED, ALERT AND ORIENTED, SKIN PALE, PT DENIES PAIN OR NEEDS, DRESSING DRY AND SECURE TO BILATERAL LEGS, SANDRA PATENT TO BSD, SR UP X2, CALL LIGHT IN REACH, BED LOW AND LOCKED, WILL CONTINUE TO MONITOR
[2020-05-14 08:10] LABS: BASOPHILS 0.4 % (0-2); EOSINOPHILS 1.6 % (0-7); HEMATOCRIT 29.6 % (36.0-48.0); HEMOGLOBIN 8.9 g/dL (12-16); IMMATURE GRANULOCYTES 0.4 % (0-5); LYMPHOCYTES 9.6 % (15-50); MCH 27.1 pg (26.0-34.0); MCHC 30.1 g/dL (31.0-37.0); MCV 90.2 fL (80.0-100.0); MEAN PLATELET VOLUME 9.2 fL (7.4-10.4); MONOCYTES 9.8 % (2-11); NEUTROPHILS 78.2 % (40-80); PLATELET COUNT 205 10x3/uL (130-400); RBC 3.28 10x6/uL (4.00-5.40); RDW 17.8 % (11.5-14.5); WBC 6.8 10x3/uL (4.8-10.8)
[2020-05-14 08:44] LABS: ANION GAP 7.5 mmol/L (8-16); CALCIUM 8.8 mg/dL (8.5-10.1); CARBON DIOXIDE 31.9 mmol/L (21.0-32.0)
[2020-05-14 08:45] LABS: POTASSIUM - SERUM 3.4 mmol/L (3.5-5.1)
--- NOTE | 2020-05-14 09:55 | NUR ---
GAVE PT MORNING MEDS, NO OTHER NEEDS VOICED 752 DRESSING CHANGED PER ORDERS, PT TOLERATED WELL
[2020-05-14 09:57] VITALS: BP 168/64
--- NOTE | 2020-05-14 12:16 | HP ---
PATIENT: CAITLIN CALIX MEDICAL RECORD: [id number] ACCOUNT: [id number] LOCATION:[address] : 31 ADMISSION DATE: 05/13/20 PCP: PERCY HINKLE MD HISTORY AND PHYSICAL EXAMINATION REASON FOR ADMISSION: Shortness of breath and cough. HISTORY OF PRESENT ILLNESS: The patient is an 89-year-old female who was hospitalized in March for peripheral vascular disease, stenting of her left lower extremity, SFA. She had finished Zyvox several days ago. She developed some cough and congestion for the last 2 days and she could not produce any phlegm. She was running saturations below 90% and was referred in from her assisted living to the Emergency Room. She denied fever, nausea, vomiting, diarrhea, change in taste or smell. She is not normally on home oxygen. She was hospitalized in March and had chest pain episode. Dr. Perry consulted. Echocardiogram showed EF of 55%. Due to her advanced age and DNR status, I did not recommend further cardiac workup. She has been angina free since that time. She had a slight bump in her troponin at that time. The patient is minimally ambulatory due to chronic thoracic scoliosis and mainly does transfer from wheelchair to bed. In the ED, CTA was performed showing no pulmonary emboli, but large lower lobe left pleural effusion suggesting congestive heart failure. Her O2 sat was 88%. PAST MEDICAL HISTORY: Cellulitis of left lower extremity with recent PTCA by IR and the left SFA. Chronic open ulcers in lower extremities, prerenal azotemia, chronic back pain and scoliosis, subacute laceration of her right lower extremity, severe peripheral vascular disease, history of paroxysmal atrial fibrillation, history of hyponatremia hospitalized for that in 2015, history of MRSA, right malleolar ulcer, essential hypertension, hyperlipidemia, hypothyroidism, esophageal stricture, GERD, benign gastric polyps removed in September 2016, osteoporosis, CAD, osteoarthritis, neuropathy of bilateral lower extremities, remote smoker, alopecia, anemia of chronic disease, history of benign carcinoid neoplasm, hiatal hernia. PAST SURGICAL HISTORY: Hysterectomy; appendectomy; partial thyroidectomy; PTCA of the left lower extremity, SFA; esophageal dilatation; cardiac catheterization 2004 with 60% stenosis; LAD treated medically; cholecystectomy; Black fundoplication; sinus surgery. ALLERGIES: LASIX CAUSING HYPONATREMIA, AMOXICILLIN CAUSING RASH, PROMETHAZINE CAUSING NAUSEA AND VOMITING, SULFA CAUSING RASH. FAMILY HISTORY: Brother with heart disease. Son at 30 with pulmonary hypertension due to genetic heart condition. Father had heart disease and kidney disease. Mother had Parkinson's. SOCIAL HISTORY: , nonsmoker now, but did smoke in the past. She does not drink alcohol. She has 24-hour care, transferred from a motorized wheelchair to bed and back. Her niece is her POA. HOME MEDICATIONS: Just finished Zyvox, Pacerone 200 mg p.o. at bedtime, Cardura 2 mg b.i.d., Isordil 10 mg p.o. daily, lisinopril 5 mg daily, Nitrostat 0.4 sublingual p.r.n. chest pain, pravastatin 40 mg at bedtime, aspirin 81 mg daily, Tylenol with codeine 2 tabs every 6 hours p.r.n. low back pain, Mirapex 1 mg p.o. at bedtime, Bumex 0.5 mg daily, potassium 10 mEq p.o. b.i.d., Moduretic HISTORY AND PHYSICAL [id number] PLUMLEE,CAITLIN 5/50 one p.o. q.a.m., Mucinex 600 mg b.i.d., Colace 100 mg b.i.d., Protonix 40 mg daily, levothyroxine 100 mcg p.o. q.a.m. a.c., vitamin D 1000 units p.o. daily, multivitamin 1 daily. REVIEW OF SYSTEMS: GENERAL: Chronic fatigue. No recent fever. HEENT: No recent new visual change, sinus congestion, or sore throat. Wears glasses to read. RESPIRATORY: She said she had a cough, nonproductive for 3-4 days. Does feel she cannot get the phlegm up. She has not had chest pain and felt short of breath or had hemoptysis. CARDIAC: No recent chest pain or palpitations. GASTROINTESTINAL: Denies nausea, vomiting, change in stools or blood per rectum. GENITOURINARY: Mild incontinence. GYNECOLOGICAL: No vaginal bleeding. ENDOCRINE: Denies polyuria, polydipsia, heat or cold intolerance. NEUROLOGIC: No history of stroke, TIA, or vascular headaches. Memory is intact. INTEGUMENT: Chronic bilateral lower extremity stasis ulcers, which are gradually improving, left lower extremity is worse than the right. She says she has dressing changes every 3 days. PSYCHIATRIC: Denies depressed mood. PHYSICAL EXAMINATION: GENERAL: Alert 89-year-old female who is chronically ill appearing. VITAL SIGNS: Her temperature is 98 degrees Fahrenheit orally; O2 sat on 2 liters is 96%, was 88 in the ED; respiratory rate is 19; blood pressure 167/68; pulse 72 and regular. HEENT: Eyes are clear. Oropharynx unremarkable. NECK: Supple, without bruits or masses. CHEST: Distant breath sounds without wheeze. She has crackles in the bases bilaterally. No E to A change. HEART: Regular rate. ABDOMEN: Soft, nontender. BACK: Shows marked thoracolumbar scoliosis. PELVIC: Deferred. EXTREMITIES: She has 1+ pedal edema. She has healing ulcers in both lower extremities with mild erythema surrounding. NEUROLOGIC: Oriented to person, place and time. Cranial nerves grossly intact. Gait is not testable. LABORATORY DATA AND DIAGNOSTIC DATA: Shows white count of 6700 with H&H of 9.5 and 31.5 respectively. Chemistry: BUN and creatinine are 20 and 1.0. C-reactive protein is 2.6, albumin 2.8. CTA as mentioned above. COVID-19 antibody RNA is negative. Her echo a month ago showed an EF of 55%. ASSESSMENT: 1. Diastolic congestive heart failure, pleural effusions. 2. Hypoxemia secondary to above. 3. Chronic obstructive pulmonary disease. 4. Peripheral vascular disease with recent PTCA, chronic cellulitis of her lower extremities. 5. Hypothyroidism. 6. Hypertension. HISTORY AND PHYSICAL [id number] CAITLIN CALIX 7. Remote coronary artery disease. 8. Recent angina without in-depth workup due to DNR status. PLAN: The patient will be admitted with gentle diuresis, supplemental O2, wound care. Further workup pending clinical course. Reinforced her DNR status. TRANSINT:[id number] Voice Confirmation ID: [id number] DOCUMENT ID: [id number] PERCY HINKLE MD at 1216 CC: [id number] DICTATION DATE: 05/14/20725 WRAPPING CHECKER: 05/14/20920 ADM IN [facility] [facility] [id number] [place] [address]
[2020-05-14 15:06] VITALS: BP 150/55
--- NOTE | 2020-05-14 19:30 | NUR ---
PT SITTING UP IN BED WATCHING TV. SHE DENIES NEEDS OR PAIN AT THIS TIME. NO SIGNS OF DISTRESS NOTED. HER BED IS LOW AND CALL LIGHT WITHIN REACH. BED ALARM ON.
[2020-05-14 20:00] VITALS: BP 172/61
[2020-05-15] VITALS: BP 165/58
[2020-05-15 04:00] VITALS: BP 168/60
[2020-05-15 08:21] VITALS: BP 130/67; BP 177/64
[2020-05-15 08:27] LABS: ANION GAP 7.4 mmol/L (8-16); CALCIUM 8.9 mg/dL (8.5-10.1); POTASSIUM - SERUM 3.4 mmol/L (3.5-5.1)
[2020-05-15 11:41] VITALS: BP 172/62
--- NOTE | 2020-05-15 15:30 | NUR ---
PT STATES THAT DRESSING CHANGES WERE PERFORMED YESTERDAY TO BILAT LOWER EXT. FLORES CARE COMPLETED PER PROTOCOL. WILL CTM.
[2020-05-15 16:33] VITALS: BP 151/58
--- NOTE | 2020-05-15 19:00 | NUR ---
REPORT RECEIVED, PT CARE ASSUMED. INTRODUCED SELF AND WROTE NAME ON BOARD. PT LYING IN BED WITH EYES CLOSED, RR EVEN AND NONLABORED, NO S/S OF DISTRESS, AROUSES EASILY TO VOICE. ORIENTED X4. DENIES ANY NEEDS AT THIS TIME. BED IN LOWEST, SRX2, CALL LIGHT WITHIN REACH. WILL CTM.
[2020-05-15 20:54] VITALS: BP 178/65
--- NOTE | 2020-05-15 20:54 | NUR ---
PT CLEANED UP, LOOSE DARK BROWN BM NOTED, LINENS CHANGED, POSITIONED FOR COMFORT.
[2020-05-16 04:46] VITALS: BP 149/64
--- NOTE | 2020-05-16 05:11 | NUR ---
PIV TO RIGHT FOREARM NOT FLUSHING. NEW PIV STARTED TO INNER ASPECT OF RIGHT FOREARM, X2 ATTEMPTS, 22 GAUGE, FLUSHES WITHOUT ISSUE, PT TOLERATED WELL. PRN IV ZOFRAN ADMINSITERED PER ORDER FOR C/O NAUSEA. DENIES EMESIS, NONE NOTED. OLD PIV REMOVED, CATHETER TIP INTACT, NO S/S OF BLEEDING AT SITE, TOLERATED WELL. DENIES ANY OTHER NEEDS AT THIS TIME. BED IN LOWEST, SRX2, CALL LIGHT WITHIN REACH. WILL CTM.
[2020-05-16 07:09] LABS: BASOPHILS 0.1 % (0-2); EOSINOPHILS 0.7 % (0-7); HEMATOCRIT 33.3 % (36.0-48.0); IMMATURE GRANULOCYTES 0.3 % (0-5); LYMPHOCYTES 9.1 % (15-50); MCH 28.1 pg (26.0-34.0); MEAN PLATELET VOLUME 9.2 fL (7.4-10.4); MONOCYTES 9.1 % (2-11); NEUTROPHILS 80.7 % (40-80); PLATELET COUNT 214 10x3/uL (130-400); RBC 3.56 10x6/uL (4.00-5.40); RDW 17.6 % (11.5-14.5); WBC 6.7 10x3/uL (4.8-10.8)
[2020-05-16 07:11] LABS: MCV 93.5 fL (80.0-100.0)
[2020-05-16 07:19] LABS: CALCIUM 8.6 mg/dL (8.5-10.1); CARBON DIOXIDE 32.5 mmol/L (21.0-32.0); CREATININE - SERUM 1.1 mg/dL (0.6-1.3); POTASSIUM - SERUM 3.5 mmol/L (3.5-5.1)
--- NOTE | 2020-05-16 07:30 | NUR ---
PT SITTING UP IN BED. CLEAR EMESIS NOTED. ZOFRAN RECIEVED PER ORDER. CALL LIGHT WITHIN REACH. DENIES FURTHER NEEDS OR PAIN AT THIS TIME. BED IN LOWEST POSITION. WILL CONTINUE TO MONITOR.
[2020-05-16 09:41] VITALS: BP 155/54
--- NOTE | 2020-05-16 09:50 | NUR ---
PT STATES SHE DOESNT THINK SHE CAN TOLERATE HER MEDICATIONS WITH THE N/V. NOT GIVEN.
[2020-05-16 12:15] VITALS: BP 168/71
--- NOTE | 2020-05-16 16:52 | NUR ---
PATIENT CHART/ASSESSMENT REVIEWED. THIS [employer] MECHANIC CONCURS WITH THE ASSESSMENT COMPLETED ON THIS SHIFT BY FERMIN CASSIDY.
[2020-05-16 17:30] VITALS: BP 199/70
--- NOTE | 2020-05-16 19:00 | NUR ---
REPORT RECEIVED, PT CARE ASSUMED. WROTE NAME ON BOARD. PT LYING IN BED WITH EYES CLOSED, RR EVEN AND NONLABORED, NO S/S OF DISTRESS, AROUSES EASILY TO VOICE. DENIES ANY NEEDS AT THIS TIME. BED IN LOWEST, SR X2, CALL LIGHT WITHIN REACH. WILL CTM.
[2020-05-16 20:00] VITALS: BP 155/59
[2020-05-17 04:00] VITALS: BP 179/78
[2020-05-17 06:59] LABS: BASOPHILS 0.2 % (0-2); EOSINOPHILS 0.8 % (0-7); HEMATOCRIT 31.1 % (36.0-48.0); HEMOGLOBIN 9.2 g/dL (12-16); IMMATURE GRANULOCYTES 0.2 % (0-5); LYMPHOCYTES 9.2 % (15-50); MCH 27.5 pg (26.0-34.0); MCHC 29.6 g/dL (31.0-37.0); MCV 93.1 fL (80.0-100.0); MONOCYTES 10.8 % (2-11); NEUTROPHILS 78.8 % (40-80); PLATELET COUNT 192 10x3/uL (130-400); RBC 3.34 10x6/uL (4.00-5.40); RDW 17.4 % (11.5-14.5); WBC 6.2 10x3/uL (4.8-10.8)
[2020-05-17 07:24] LABS: ANION GAP 5.9 mmol/L (8-16); CALCIUM 8.6 mg/dL (8.5-10.1); CARBON DIOXIDE 37.6 mmol/L (21.0-32.0); CREATININE - SERUM 1.3 mg/dL (0.6-1.3); POTASSIUM - SERUM 3.5 mmol/L (3.5-5.1)
[2020-05-17 09:24] VITALS: BP 195/92
--- NOTE | 2020-05-17 11:57 | NUR ---
RECIEVED VERBAL ORDERS PER FOR ZOFRAN DRIP AND 10MG HYDRALAZINE IV Q6HPRN FOR SYS BP OVER 170. ORDER PLACED. WILL CTM.
[2020-05-17 12:00] VITALS: BP 119/71
[2020-05-17 16:00] VITALS: BP 179/73
--- NOTE | 2020-05-17 17:20 | NUR ---
AM AND PM PO MEDICATIONS HELD R/T PT NOT BEING ABLE TO SWALLOW AND R/T PT BEING CONSTANTLY NAUSEOUS. NOTIFIED . WILL CTM.
[2020-05-17 21:14] VITALS: BP 188/67
[2020-05-18 00:38] VITALS: BP 169/68
[2020-05-18 04:16] VITALS: BP 199/72
[2020-05-18 05:16] LABS: CALCIUM 9.1 mg/dL (8.5-10.1)
[2020-05-18 05:22] LABS: CREATININE - SERUM 0.9 mg/dL (0.6-1.3)
[2020-05-18 05:32] LABS: BASOPHILS 0.2 % (0-2); EOSINOPHILS 2.3 % (0-7); HEMATOCRIT 34.5 % (36.0-48.0); HEMOGLOBIN 10.4 g/dL (12-16); IMMATURE GRANULOCYTES 0.2 % (0-5); LYMPHOCYTES 11.6 % (15-50); MCH 28.1 pg (26.0-34.0); MCHC 30.1 g/dL (31.0-37.0); MCV 93.2 fL (80.0-100.0); MEAN PLATELET VOLUME 9.3 fL (7.4-10.4); MONOCYTES 9.4 % (2-11); NEUTROPHILS 76.3 % (40-80); PLATELET COUNT 195 10x3/uL (130-400); RDW 16.9 % (11.5-14.5); WBC 6.1 10x3/uL (4.8-10.8)
--- NOTE | 2020-05-18 07:20 | NUR ---
RECIEVE REPORT. ALERT AND ORIENTED X4. RESTING IN BED. FLORES DRAINING BY GRAVITY. FREE FROM KINKS. DENIES ANY NEEDS. COUGHING UP THICK MUCOUS. CONTINUE PLAN OF CARE AND SAFETY PRECAUTIONS.
[2020-05-18 10:33] VITALS: BP 174/68
--- NOTE | 2020-05-18 13:44 | NUR ---
Rehab Note- Acute Inpatient Rehab prescreen order received. The patient has a pending PT Eval at this time. Will await and follow to see the patient's functional mobility. Thank you for this referral! Melanie Dumas RN Clinical Liaison, [facility] Rehab
[2020-05-18 13:55] VITALS: Ht 157.5 cm; Wt 56.0 kg
[2020-05-18 14:24] VITALS: BP 170/64
--- NOTE | 2020-05-18 15:39 | NUR ---
ALERT AND ORIENTED X4. SITTING UP IN BED. BILATERAL LOWER EXTREMITY WOUND DRESSINGS CHANGED ORDERED. LT LEG HAD PURULENT DRAINAGE ON DRESSING. CONTINUE TO MONITOR. DENIES ANY NEEDS. CONTINUE PLAN OF CARE AND SAFETY PRECAUTIONS.
--- NOTE | 2020-05-18 19:00 | NUR ---
REPORT RECEIVED, WILL CONTINUE POC. PATIENT IS AAOX4, LYING IN SEMI-FOWLERS POSITION. NO S/S OF DISTRESS OBSERVED, RR EVEN AND UNLABORED ON 3L O2 VIA NC. PATIENT DENIES NEEDS AT THIS TIME. CL IN REACH, BED LOCKED AND LOWERED. WILL CTM.
[2020-05-18 20:29] VITALS: BP 139/49
[2020-05-19] VITALS (8 sets, daily range): BP systolic 150–180; BP diastolic 57–64
--- NOTE | 2020-05-19 04:54 | NUR ---
I have reviewed this patient and I concur with the Shift Assessment completed by the Licensed Practical Nurse today this shift.
[2020-05-19 06:10] LABS: BASOPHILS 0.2 % (0-2); EOSINOPHILS 3.5 % (0-7); HEMATOCRIT 34.1 % (36.0-48.0); HEMOGLOBIN 9.9 g/dL (12-16); IMMATURE GRANULOCYTES 0.2 % (0-5); LYMPHOCYTES 12.1 % (15-50); MCH 27.3 pg (26.0-34.0); MCV 93.9 fL (80.0-100.0); MEAN PLATELET VOLUME 9.8 fL (7.4-10.4); MONOCYTES 11.1 % (2-11); NEUTROPHILS 72.9 % (40-80); PLATELET COUNT 200 10x3/uL (130-400); RBC 3.63 10x6/uL (4.00-5.40); RDW 16.9 % (11.5-14.5); WBC 5.7 10x3/uL (4.8-10.8)
[2020-05-19 06:36] LABS: ALBUMIN 2.5 g/dL (3.4-5.0); BILIRUBIN - TOTAL 0.45 mg/dL (0.2-1.3); CALCIUM 8.8 mg/dL (8.5-10.1); CREATININE - SERUM 0.9 mg/dL (0.6-1.3); POTASSIUM - SERUM 3.3 mmol/L (3.5-5.1); PROTEIN - SERUM 5.1 g/dL (6.4-8.2)
[2020-05-19 06:38] LABS: ANION GAP 4.4 mmol/L (8-16)
[2020-05-19 06:39] LABS: CARBON DIOXIDE 41.9 mmol/L (21.0-32.0)
--- NOTE | 2020-05-19 07:20 | NUR ---
RECIEVE REPORT. ALERT AND ORIENTED X4. SITTING UP IN BED. AT BEDSIDE. LT LEG DRESSING REMOVED TO SHOW WOUND TO . WOUND CULTURE COLLECTED AND TAKEN TO LAB. LT LEG LEFT OPEN TO AIR. DENIES ANY NEEDS. CONTINUE PLAN OF CARE AND SAFETY PRECAUTIONS.
--- NOTE | 2020-05-19 11:42 | MORECARE ---
CASE MANAGEMENT DISCHARGE SUMMARY PATIENT: CAITLIN CALIX UNIT: [id number] ADM DATE: 05/13/20 AGE: 89 : 31 SEX: F ROOM/BED: D.2137 AUTHOR: ROXANN MARKS PHYSICIAN: REFERRING PHYSICIAN: ADDISON KRAMER MD DATE OF SERVICE: 05/19/20 Discharge Plan Patient Name: CAITLIN CALIX Facility: [facility]:[place] : 1930 Planned Disposition: Home Anticipated Discharge Date: Discharge Date: Expected LOS: Initial Reviewer: [email or web address] Initial Review Date: 05/13/2020 Generated: 05/19/20 12:41 pm Patient Name: CAITLIN CALIX Page 19101 at 1142 All edits/amendments must be made on the electronic document DICTATION DATE: 05/19/20 1141 ON SITE WASTEWATER SYSTEMS TECHNICIAN: MARICARMEN 05/19/20 1141 RPT#: [id number] DC DATE: STATUS: ADM IN [facility] [address] [place] [address] END OF REPORT
--- NOTE | 2020-05-19 11:50 | MORECARE ---
CASE MANAGEMENT DISCHARGE SUMMARY PATIENT: CAITLIN CALIX UNIT: [id number] ADM DATE: 05/13/20 AGE: 89 : 31 SEX: F ROOM/BED: D.2137 AUTHOR: ROXANN MARKS PHYSICIAN: REFERRING PHYSICIAN: ADDISON KRAMER MD DATE OF SERVICE: 05/19/20 Discharge Plan Patient Name: CAITLIN CALIX Facility: [facility]:[place] : 1930 Planned Disposition: Home Anticipated Discharge Date: Discharge Date: Expected LOS: Initial Reviewer: [email or web address] Initial Review Date: 05/13/2020 Generated: 05/19/20 12:49 pm DCPIA - Discharge Planning Initial Assessment Updated by [email or web address]: Lidia Torres on 05/19/20 11:48 am * Is the patient Alert and Oriented? Yes * How many steps to enter\exit or inside your home? RAMP * PCP ROMANSH * [facility] * Preadmission Environment Home Alone * ADLs Partial Dependent * Partial ADLs (Assistance needed) Ambulation Bathing Dressing Medication Management Toileting Transfers * Equipment Aziza Lift Power Chair or Electric Scooter Wheelchair * List name and contact numbers for known caregivers / representatives who currently or will assist patient after discharge: KRISTOPHER HAWLEY [phone] * Verbal permission to speak to the caregivers and representatives has been obtained from the patient. Yes * Community resources currently utilized [facility] * Please name any agencies selected above. [facility] * Additional services required to return to the preadmission environment? Yes * Can the patient safely return to the preadmission environment? No * Has this patient been hospitalized within the prior 30 days at any hospital? No Last DP export: 05/19/20 10:42 a Patient Name: CAITLIN CALIX Page 61224 at 1150 All edits/amendments must be made on the electronic document DICTATION DATE: 05/19/20 1149 FUNERAL PREARRANGEMENT COUNSELOR: MARICARMEN 05/19/20 1149 RPT#: [id number] DC DATE: STATUS: ADM IN [facility] [address] [place] [address] END OF REPORT
--- NOTE | 2020-05-19 12:05 | MORECARE ---
CASE MANAGEMENT DISCHARGE SUMMARY PATIENT: CAITLIN CALIX UNIT: [id number] ADM DATE: 05/13/20 AGE: 89 : 31 SEX: F ROOM/BED: D.9420 AUTHOR: ROXANN MARKS PHYSICIAN: REFERRING PHYSICIAN: ADDISON KRAMER MD DATE OF SERVICE: 05/19/20 Discharge Plan Patient Name: CAITLIN CALIX Facility: [facility]:[place] : 1930 Planned Disposition: Home Anticipated Discharge Date: Discharge Date: Expected LOS: Initial Reviewer: [email or web address] Initial Review Date: 05/13/2020 Generated: 05/19/20 1:05 pm Comments DCP- Discharge Planning Updated by [email or web address]: Lidia Torres on 05/19/20 11:[address] Patient Name: CAITLIN CALIX Admission Status: ER Accout number: [id number] Admission Date: 05-13-2020 : 1930 Admission Diagnosis:SHORTNESS OF BREATH Attending: ADDISON KRAMER Current LOS: 6 Anticipated DC Date: Planned Disposition: Home Primary Insurance: MEDICARE A & B Discharge Planning Comments: CM met with patient to complete initial dc planning assessment. CM educated patient on the CM role and verbal consent given by patient to complete assessment. CM verified patient's address, phone number, and emergency contact phone numbers. Patient lives at home with a 24 hour caregiver from [facility], and [place] pending sale to [facility] for wound care and PT. Pt has DME: power electric scooter, bedside commode, and a Aziza lift. At discharge patient plans to return home and feels this is a safe discharge. CM spoke with family about hospice at home. Pt states she does not want hospice at this time. States she feels better than when she came in. CM discussed availability of home health, rehab services, and other medical equipment. Patient declined rehab, and signed declination. Pt signed choice to resume [facility] and [place] . Yaquelin (niece) at bedside will drive pt home. The patient is currently on 3 liters of oxygen. CM anticipates the need for home and portable oxygen. Pt signed choice to have [facility] supply oxygen needs if needed CM will continue to follow and will assist as needed with dc plans/needs. Business Services Officer: Lidia Torres DCPIA - Discharge Planning Initial Assessment Updated by [email or web address]: Lidia Torres on 05/19/20 11:48 am * Is the patient Alert and Oriented? Yes * How many steps to enter\exit or inside your home? RAMP * PCP TOGOLESE * [facility] * Preadmission Environment Home Alone * ADLs Partial Dependent * Partial ADLs (Assistance needed) Ambulation Bathing Dressing Medication Management Toileting Transfers * Equipment Aziza Lift Power Chair or Electric Scooter Wheelchair * List name and contact numbers for known caregivers / representatives who currently or will assist patient after discharge: YAQUELIN CALIX [facility] [phone] * Verbal permission to speak to the caregivers and representatives has been obtained from the patient. Yes * Community resources currently utilized [facility] * Please name any agencies selected above. [facility] * Additional services required to return to the preadmission environment? Yes * Can the patient safely return to the preadmission environment? No * Has this patient been hospitalized within the prior 30 days at any hospital? No Last DP export: 05/19/20 10:50 a Patient Name: CAITLIN CALIX Page 51849 at 1205 All edits/amendments must be made on the electronic document DICTATION DATE: 05/19/20 1205 JOINTER SUBMARINE CABLE: MARICARMEN 05/19/20 1205 RPT#: [id number] DC DATE: STATUS: ADM IN [facility] [address] [place] [address] END OF REPORT
--- NOTE | 2020-05-19 12:21 | MORECARE ---
CASE MANAGEMENT DISCHARGE SUMMARY PATIENT: CAITLIN CALIX UNIT: [id number] ADM DATE: 05/13/20 AGE: 89 : 31 SEX: F ROOM/BED: D.5487 AUTHOR: ROXANN MARKS PHYSICIAN: REFERRING PHYSICIAN: ADDISON KRAMER MD DATE OF SERVICE: 05/19/20 Discharge Plan Patient Name: CAITLIN CALIX Facility: [facility]:[place] : 1930 Planned Disposition: Home Anticipated Discharge Date: Discharge Date: Expected LOS: Initial Reviewer: [email or web address] Initial Review Date: 05/13/2020 Generated: 05/19/20 1:21 pm Comments DCP- Discharge Planning Updated by [email or web address]: Lidia Torres on 05/19/20 11:[address] CM spoke with Yaquelin cortes) regarding hospice. Yaquelin states she would like hospice to come out at the patients home after dc to evaluate. CM spoke with Natanael from [facility] at [phone] about referral and will fax clinicals. No changes to DC plan at this time. CM will continue to assist with discharge. Lidia Torres DCP- Discharge Planning Updated by [email or web address]: Lidia Torres on 05/19/20 11:[address] Patient Name: CAITLIN CALIX Admission Status: ER Accout number: [id number] Admission Date: 05-13-2020 : 1930 Admission Diagnosis:SHORTNESS OF BREATH Attending: ADDISON KRAMER Current LOS: 6 Anticipated DC Date: Planned Disposition: Home Primary Insurance: MEDICARE A & B Discharge Planning Comments: CM met with patient to complete initial dc planning assessment. CM educated patient on the CM role and verbal consent given by patient to complete assessment. CM verified patient's address, phone number, and emergency contact phone numbers. Patient lives at home with a 24 hour caregiver from [facility], and [facility] for wound care and PT. Pt has DME: power electric scooter, bedside commode, and a Aziza lift. At discharge patient plans to return home and feels this is a safe discharge. CM spoke with family about hospice at home. Pt states she does not want hospice at this time. States she feels better than when she came in. CM discussed availability of home health, rehab services, and other medical equipment. Patient declined rehab, and signed declination. Pt signed choice to resume [facility] and [place] Yaquelin (niece) at bedside will drive pt home. The patient is currently on 3 liters of oxygen. CM anticipates the need for home and portable oxygen. Pt signed choice to have [facility] supply oxygen needs if needed CM will continue to follow and will assist as needed with dc plans/needs. Ornamental Brick Installer: Lidia Torrse DCPIA - Discharge Planning Initial Assessment Updated by [email or web address]: Lidia Torres on 05/19/20 11:48 am * Is the patient Alert and Oriented? Yes * How many steps to enter\exit or inside your home? RAMP * PCP [place] [facility] * Pharmacy [facility] * Preadmission Environment Home Alone * ADLs Partial Dependent * Partial ADLs (Assistance needed) Ambulation Bathing Dressing Medication Management Toileting Transfers * Equipment Aziza Lift Power Chair or Electric Scooter Wheelchair * List name and contact numbers for known caregivers / representatives who currently or will assist patient after discharge: YAQUELIN CALIX [facility] [phone] * Verbal permission to speak to the caregivers and representatives has been obtained from the patient. Yes * Community resources currently utilized [facility] * Please name any agencies selected above. [facility] * Additional services required to return to the preadmission environment? Yes * Can the patient safely return to the preadmission environment? No * Has this patient been hospitalized within the prior 30 days at any hospital? No External Providers External Provider: [facility] Next Contact Date: Service Request Date: Service Type: Resolution: Reviewer: Comments: Last DP export: 05/19/20 11:05 a Patient Name: CAITLIN CALIX Page 68517 at 1221 All edits/amendments must be made on the electronic document DICTATION DATE: 05/19/20 1221 SECURITY OFFICERS AND GUARDS: MARICARMEN 05/19/20 1221 RPT#: [id number] DC DATE: STATUS: ADM IN [facility] [address] [place] [id number] END OF REPORT
--- NOTE | 2020-05-19 13:57 | MORECARE ---
CASE MANAGEMENT DISCHARGE SUMMARY PATIENT: CAITLIN CALIX UNIT: [id number] ADM DATE: 05/13/20 AGE: 89 : 31 SEX: F ROOM/BED: D.5579 AUTHOR: ROXANN MARKS PHYSICIAN: REFERRING PHYSICIAN: ADDISON KRAMER MD DATE OF SERVICE: 05/19/20 Discharge Plan Patient Name: CAITLIN CALIX Facility: [facility]:[place] : 1930 Planned Disposition: Home Anticipated Discharge Date: Discharge Date: Expected LOS: Initial Reviewer: [email or web address] Initial Review Date: 05/13/2020 Generated: 05/19/20 2:56 pm Comments DCP- Discharge Planning Updated by [email or web address]: Lidia Torres on 05/19/20 11:[address] CM spoke with Yaquelin cortes) regarding hospice. Yaquelin states she would like hospice to come out at the patients home after dc to evaluate. CM spoke with Natanael from [facility] at [phone] about referral and will fax clinicals. No changes to DC plan at this time. CM will continue to assist with discharge. Lidia Torres DCP- Discharge Planning Updated by [email or web address]: Lidia Torres on 05/19/20 11:[address] Patient Name: CAITLIN CALIX Admission Status: ER Accout number: [id number] Admission Date: 05-13-2020 : 1930 Admission Diagnosis:SHORTNESS OF BREATH Attending: ADDISON KRAMER Current LOS: 6 Anticipated DC Date: Planned Disposition: Home Primary Insurance: MEDICARE A & B Discharge Planning Comments: CM met with patient to complete initial dc planning assessment. CM educated patient on the CM role and verbal consent given by patient to complete assessment. CM verified patient's address, phone number, and emergency contact phone numbers. Patient lives at home with a 24 hour caregiver from [facility], and [facility] for wound care and PT. Pt has DME: power electric scooter, bedside commode, and a Aziza lift. At discharge patient plans to return home and feels this is a safe discharge. CM spoke with family about hospice at home. Pt states she does not want hospice at this time. States she feels better than when she came in. CM discussed availability of home health, rehab services, and other medical equipment. Patient declined rehab, and signed declination. Pt signed choice to resume [facility] and Radha SHARONAJarad Jamison (niece) at bedside will drive pt home. The patient is currently on 3 liters of oxygen. CM anticipates the need for home and portable oxygen. Pt signed choice to have [facility] supply oxygen needs if needed CM will continue to follow and will assist as needed with dc plans/needs. Carpenter Mold: Lidia Torres DCPIA - Discharge Planning Initial Assessment Updated by [email or web address]: Lidia Torres on 05/19/20 11:48 am * Is the patient Alert and Oriented? Yes * How many steps to enter\exit or inside your home? RAMP * PCP SALVADOREAN * Pharmacy [facility] * Preadmission Environment Home Alone * ADLs Partial Dependent * Partial ADLs (Assistance needed) Ambulation Bathing Dressing Medication Management Toileting Transfers * Equipment Aziza Lift Power Chair or Electric Scooter Wheelchair * List name and contact numbers for known caregivers / representatives who currently or will assist patient after discharge: YAQUELIN CALIX [facility] [phone] * Verbal permission to speak to the caregivers and representatives has been obtained from the patient. Yes * Community resources currently utilized [facility] * Please name any agencies selected above. [facility] * Additional services required to return to the preadmission environment? Yes * Can the patient safely return to the preadmission environment? No * Has this patient been hospitalized within the prior 30 days at any hospital? No External Providers External Provider: [facility] Next Contact Date: Service Request Date: Service Type: Resolution: Reviewer: Comments: Last DP export: 05/19/20 11:22 a Patient Name: CAITLIN CALIX Page 57093 at 1357 All edits/amendments must be made on the electronic document DICTATION DATE: 05/19/20 1357 FRONT LINE LEADER: MARICARMEN 05/19/20 1357 RPT#: [id number] DC DATE: STATUS: ADM IN [facility] [address] [place] [address] END OF REPORT
--- NOTE | 2020-05-19 14:43 | MORECARE ---
CASE MANAGEMENT DISCHARGE SUMMARY PATIENT: CAITLIN CALIX UNIT: [id number] ADM DATE: 05/13/20 AGE: 89 : 31 SEX: F ROOM/BED: D.3846 AUTHOR: ROXANN MARKS PHYSICIAN: REFERRING PHYSICIAN: ADDISON KRAMER MD DATE OF SERVICE: 05/19/20 Discharge Plan Patient Name: CAITLIN CALIX Facility: [facility]:[place] : 1930 Planned Disposition: Home Anticipated Discharge Date: Discharge Date: Expected LOS: Initial Reviewer: [email or web address] Initial Review Date: 05/13/2020 Generated: 05/19/20 3:42 pm Comments DCP- Discharge Planning Updated by [email or web address]: Lidia Torres on 05/19/20 1:[address] Patient Name: CAITLIN CALIX Admission Status: ER Accout number: [id number] Admission Date: 05-13-2020 : 1930 Admission Diagnosis:SHORTNESS OF BREATH Attending: ADDISON KRAMER Current LOS: 6 Anticipated DC Date: Planned Disposition: Home Primary Insurance: MEDICARE A & B Discharge Planning Comments: CM met with patient to complete initial dc planning assessment. CM educated patient on the CM role and verbal consent given by patient to complete assessment. CM verified patient's address, phone number, and emergency contact phone numbers. Patient lives at home with a 24 hour caregiver from [facility], and [facility] for wound care and PT. Pt has DME: power electric scooter, bedside commode, and a Aziza lift. At discharge patient plans to return home and feels this is a safe discharge. CM spoke with family about hospice at home. Pt states she does not want hospice at this time. States she feels better than when she came in. CM discussed availability of home health, rehab services, and other medical equipment. Patient declined rehab, and signed declination. Pt signed choice to resume [facility] and [facility] . Yaquelin (niece) at bedside will drive pt home. The patient is currently on 3 liters of oxygen. CM anticipates the need for home and portable oxygen. Pt signed choice to have [facility] supply oxygen needs if needed CM will continue to follow and will assist as needed with dc plans/needs. A walk test was completed. CM called Rick from [facility] at [phone] for referral. Parquetry Floor Layer: Lidia Torres DCP- Discharge Planning Updated by [email or web address]: Lidia Torres on 05/19/20 11:[address] CM spoke with Yaquelin (niece) regarding hospice. Yaquelin states she would like hospice to come out at the patients home after dc to evaluate. LISSET spoke with Natanael from [facility] at [phone] about referral and will fax clinicals. No changes to DC plan at this time. CM will continue to assist with discharge. Lidia Torres DCPIA - Discharge Planning Initial Assessment Updated by [email or web address]: Lidia Torres on 05/19/20 11:48 am * Is the patient Alert and Oriented? Yes * How many steps to enter\exit or inside your home? RAMP * PCP AUSTRIAN * Pharmacy [facility] * Preadmission Environment Home Alone * ADLs Partial Dependent * Partial ADLs (Assistance needed) Ambulation Bathing Dressing Medication Management Toileting Transfers * Equipment Aziza Lift Power Chair or Electric Scooter Wheelchair * List name and contact numbers for known caregivers / representatives who currently or will assist patient after discharge: YAQUELIN [facility] [phone] * Verbal permission to speak to the caregivers and representatives has been obtained from the patient. Yes * Community resources currently utilized [facility] * Please name any agencies selected above. [facility] * Additional services required to return to the preadmission environment? Yes * Can the patient safely return to the preadmission environment? No * Has this patient been hospitalized within the prior 30 days at any hospital? No External Providers External Provider: [facility] Next Contact Date: Service Request Date: Service Type: Resolution: Reviewer: Comments: Last DP export: 05/19/20 12:57 p Patient Name: CAITLIN CALIX Page 33814 at 1443 All edits/amendments must be made on the electronic document DICTATION DATE: 05/19/20 1442 PRODUCTION SANITIZER: MARICARMEN 05/19/20 1442 RPT#: [id number] DC DATE: STATUS: ADM IN [facility] [address] [place] [address] END OF REPORT
--- NOTE | 2020-05-19 16:39 | NUR ---
ALERT AND ORIENTED X4. SITTING UP IN BED. DEFLATE FLORES BULB 10mL. DC FLORES BULB INTACT. DC RT FA IV TIP INTACT. INFORM KRISTOPHER, PATIENT NIECE OF DISCHARGE. KRISTOPHER REPLIES, "SHE HAS [facility] 24HR [facility]ARE SO I WILL HAVE TO CALL THEM FIRST. ALSO HER WHEELCHAIR HAS TO CHARGE OVER NIGHT. I WILL HAVE TO GET BACK TO YOU."
--- NOTE | 2020-05-19 19:10 | NUR ---
REPORT RECEIVED, WILL CONTINUE POC. PATIENT IS AAOX4, LYING IN SUPINE POSITION. NO S/S OF DISTRESS OBSERVED, RR EVEN AND UNLABORED ON 3L O2 VIA NC. PATIENT DENIES NEEDS AT THIS TIME. CL IN REACH, BED LOCKED AND LOWERED. WILL CTM.
--- NOTE | 2020-05-20 03:19 | NUR ---
I have reviewed this patient and I concur with the Shift Assessment completed by the Licensed Practical Nurse today this shift.
--- NOTE | 2020-05-20 17:27 | MORECARE ---
CASE MANAGEMENT DISCHARGE SUMMARY PATIENT: CAITLIN CALIX UNIT: [id number] ADM DATE: 05/13/20 AGE: 89 : 31 SEX: F ROOM/BED: D.1037 AUTHOR: SELINA,DOC PHYSICIAN: REFERRING PHYSICIAN: ADDISON KRAMER MD DATE OF SERVICE: 05/20/20 Discharge Plan Patient Name: CAITLIN CALIX Facility: [facility]:[place] : 1930 Planned Disposition: Home Anticipated Discharge Date: Discharge Date: 05/20/2020 Expected LOS: Initial Reviewer: [email or web address] Initial Review Date: 05/13/2020 Generated: 05/20/20 6:27 pm Comments DCP- Discharge Planning Updated by [email or web address]: Lidia Torres on 05/19/20 1:[address] Patient Name: CAITLIN CALIX Admission Status: ER Accout number: [id number] Admission Date: 05-13-2020 : 1930 Admission Diagnosis:SHORTNESS OF BREATH Attending: ADDISON KRAMER Current LOS: 6 Anticipated DC Date: Planned Disposition: Home Primary Insurance: MEDICARE A & B Discharge Planning Comments: CM met with patient to complete initial dc planning assessment. CM educated patient on the CM role and verbal consent given by patient to complete assessment. CM verified patient's address, phone number, and emergency contact phone numbers. Patient lives at home with a 24 hour caregiver from [facility], and [facility] for wound care and PT. Pt has DME: power electric scooter, bedside commode, and a Aziza lift. At discharge patient plans to return home and feels this is a safe discharge. CM spoke with family about hospice at home. Pt states she does not want hospice at this time. States she feels better than when she came in. CM discussed availability of home health, rehab services, and other medical equipment. Patient declined rehab, and signed declination. Pt signed choice to resume [facility] and [place] . Yaquelin (niece) at bedside will drive pt home. The patient is currently on 3 liters of oxygen. CM anticipates the need for home and portable oxygen. Pt signed choice to have [facility] supply oxygen needs if needed CM will continue to follow and will assist as needed with dc plans/needs. A walk test was completed. CM called Rick from [facility] at [phone] for referral. Combine Mechanic: Lidia Torres DCP- Discharge Planning Updated by [email or web address]: Lidia Torres on 05/19/20 11:[address] CM spoke with Yaquelin (niece) regarding hospice. Yaquelin states she would like hospice to come out at the patients home after dc to evaluate. LISSET spoke with Natanael from [facility] at [phone] about referral and will fax clinicals. No changes to DC plan at this time. CM will continue to assist with discharge. Lidia Torres DCPIA - Discharge Planning Initial Assessment Updated by [email or web address]: Lidia Torres on 05/19/20 11:48 am * Is the patient Alert and Oriented? Yes * How many steps to enter\exit or inside your home? RAMP * PCP PORTUGUESE * Pharmacy [facility] * Preadmission Environment Home Alone * ADLs Partial Dependent * Partial ADLs (Assistance needed) Ambulation Bathing Dressing Medication Management Toileting Transfers * Equipment Aziza Lift Power Chair or Electric Scooter Wheelchair * List name and contact numbers for known caregivers / representatives who currently or will assist patient after discharge: YAQUELIN VIMALDiana NMEULOGIO [phone] * Verbal permission to speak to the caregivers and representatives has been obtained from the patient. Yes * Community resources currently utilized [facility] * Please name any agencies selected above. [facility] * Additional services required to return to the preadmission environment? Yes * Can the patient safely return to the preadmission environment? No * Has this patient been hospitalized within the prior 30 days at any hospital? No Last DP export: 05/19/20 1:43 p Patient Name: CAITLIN CALIX Page 24959 at 1726 All edits/amendments must be made on the electronic document DICTATION DATE: 05/20/201726 TRANSITION ASSISTANT: MARICARMEN 05/20/201726 RPT#: [id number] DC DATE:05/20/20 STATUS: DIS IN [place] [place] [id number] [place] [address] END OF REPORT
== END 2020-05-20 08:43 | disposition home health service (06) | DRG 292 ==
LOC: D.ER 12:30 → D.M2 17:12
PROVIDERS: Family Medicine; ADMIT Family Medicine; ATTEND Family Medicine
DX: I11.0 Hypertensive heart disease with heart failure (principal); L03.116 Cellulitis of left lower limb; L03.115 Cellulitis of right lower limb; J44.9 Chronic obstructive pulmonary disease, unspecified; I73.9 Peripheral vascular disease, unspecified; Z66 Do not resuscitate; E03.9 Hypothyroidism, unspecified; I25.10 Atherosclerotic heart disease of native coronary artery without angina pectoris; I50.33 Acute on chronic diastolic (congestive) heart failure

== ENCOUNTER 2020-05-20 12:29 | Inpatient (IN) | payer MEDICARE, BC ==
[~2020-05-20] VITALS: Ht 157.5 cm; Wt 4.5 kg
[2020-05-20 13:02] LABS: BILIRUBIN NEGATIVE (NEGATIVE); GLUCOSE NEGATIVE (NEGATIVE); KETONE NEGATIVE (NEGATIVE); NITRITE NEGATIVE (NEGATIVE); UROBILINOGEN NORMAL (NORMAL)
[2020-05-20 13:10] LABS: UDS - AMPHET NEGATIVE QUAL (NEGATIVE); UDS - BARB NEGATIVE QUAL (NEGATIVE); UDS - BENZO NEGATIVE QUAL (NEGATIVE); UDS - COCAINE NEGATIVE QUAL (NEGATIVE); UDS - OPIATE POSITIVE QUAL (NEGATIVE); UDS - PCP NEGATIVE QUAL (NEGATIVE); UDS - THC NEGATIVE QUAL (NEGATIVE)
[2020-05-20 13:10] LABS: BASOPHILS 0.2 % (0-2); EOSINOPHILS 1.3 % (0-7); HEMATOCRIT 34.1 % (36.0-48.0); HEMOGLOBIN 10.2 g/dL (12-16); LYMPHOCYTES 7.7 % (15-50); MCH 27.9 pg (26.0-34.0); MCHC 29.9 g/dL (31.0-37.0); MCV 93.4 fL (80.0-100.0); MEAN PLATELET VOLUME 9.5 fL (7.4-10.4); MONOCYTES 7.5 % (2-11); NEUTROPHILS 83.3 % (40-80); PLATELET COUNT 214 10x3/uL (130-400); RBC 3.65 10x6/uL (4.00-5.40); WBC 8.3 10x3/uL (4.8-10.8)
[2020-05-20 13:16] LABS: CALC OSMOLALITY 291 mosm/kg (275-300); CALCIUM 9.8 mg/dL (8.5-10.1); CARBON DIOXIDE 37.8 mmol/L (21.0-32.0); CHLORIDE - SERUM 104 mmol/L (98-107); CREATININE - SERUM 0.9 mg/dL (0.6-1.3); GLUCOSE 132 mg/dL (74-106); POTASSIUM - SERUM 3.7 mmol/L (3.5-5.1); SODIUM 143 mmol/L (136-145); UREA NITROGEN 26 mg/dL (7-18); eGFR NON AFRICAN AMERICAN 62 mL/min (90-120)
[2020-05-20 13:22] LABS: APTT 27.5 SECONDS (22.8-39.4); INR 1.12 (0.85-1.17); PROTIME 14.4 SECONDS (11.6-15.0)
[2020-05-20 13:32] LABS: ALBUMIN 2.7 g/dL (3.4-5.0); ALKALINE PHOSPHATASE 132 U/L (30-120); BILIRUBIN - TOTAL 0.44 mg/dL (0.2-1.3); CKMB 2.2 U/L (0.0-3.6); CREATINE KINASE 91 UL (21-215); MAGNESIUM - SERUM 1.7 mg/dL (1.8-2.4); PROTEIN - SERUM 5.9 g/dL (6.4-8.2); THYROID STIMULATING HORMONE 6.14 uIU/mL (0.36-3.74); TROPONIN-I < 0.017 ng/mL (0.000-0.060)
[2020-05-20 13:34] LABS: ALT (SGPT) 99 U/L (10-68)
[2020-05-20 15:30] VITALS: BP 178/97
--- NOTE | 2020-05-20 15:45 | NUR ---
REPORT TO FERMIN JUARES
[2020-05-20 17:23] VITALS: BP 181/88; Ht 157.5 cm; Wt 4.5 kg
--- NOTE | 2020-05-20 18:43 | NUR ---
FLORES CATH PLACED USING CONVERTER SKIMMER WITH 16 F CATH. SAMPLE COLLECTED TAKEN TO LAB FOR UA. TOLERATED WELL. FRIEND AND C/L AT BEDSIDE.
--- NOTE | 2020-05-20 19:00 | NUR ---
REPORT RECEIVED, WILL CONTINUE POC. PATIENT ALERT BUT PLEASANTLY CONFUSED. REACHING INTO THE AIR IF SHE'S TOUCHING SOMETHING. ASKED PATIENT IF SHE NEEDED ANYTHING AND SHE STATED, "NO". NO S/S OF DISTRESS OBSERVED, RR EVEN AND UNLABORED ON 2L O2 VIA NC. PATIENT DENIES NEEDS AT THIS TIME. CL IN REACH, BED LOCKED AND LOWERED. WILL CTM.
[2020-05-20 20:00] VITALS: BP 192/72
--- NOTE | 2020-05-20 20:00 | NUR ---
PATIENT BP 192/72, REFUSED PRN LISINOPRIL.
[2020-05-21] VITALS: BP 179/71
--- NOTE | 2020-05-21 | NUR ---
PATIENT BP 179/71, PATIENT SEEMS TO BE UNABLE TO SWALLOW MEDS. TRIES FOR SIPS OF WATER BUT WOKE SUCK STRAW ENOUGH FOR WATER TO FILL HER MOUTH.
--- NOTE | 2020-05-21 02:44 | NUR ---
I have reviewed this patient and I concur with the Shift Assessment completed by the Licensed Practical Nurse today this shift.
[2020-05-21 04:00] VITALS: BP 153/81
[2020-05-21 05:03] LABS: BILIRUBIN NEGATIVE (NEGATIVE); GLUCOSE NEGATIVE (NEGATIVE); KETONE NEGATIVE (NEGATIVE); NITRITE NEGATIVE (NEGATIVE); UROBILINOGEN NORMAL (NORMAL)
[2020-05-21 05:49] LABS: BASOPHILS 0.3 % (0-2); EOSINOPHILS 6.6 % (0-7); HEMATOCRIT 32.1 % (36.0-48.0); HEMOGLOBIN 9.5 g/dL (12-16); IMMATURE GRANULOCYTES 0.3 % (0-5); LYMPHOCYTES 15.2 % (15-50); MCH 27.5 pg (26.0-34.0); MCHC 29.6 g/dL (31.0-37.0); MCV 92.8 fL (80.0-100.0); MEAN PLATELET VOLUME 9.6 fL (7.4-10.4); MONOCYTES 8.4 % (2-11); NEUTROPHILS 69.2 % (40-80); PLATELET COUNT 204 10x3/uL (130-400); RBC 3.46 10x6/uL (4.00-5.40); RDW 17.1 % (11.5-14.5)
[2020-05-21 06:08] LABS: WBC 5.9 10x3/uL (4.8-10.8)
[2020-05-21 06:31] LABS: ALBUMIN 2.5 g/dL (3.4-5.0); ANION GAP 4.1 mmol/L (8-16); BILIRUBIN - TOTAL 0.41 mg/dL (0.2-1.3); CALCIUM 9.6 mg/dL (8.5-10.1); CREATININE - SERUM 0.8 mg/dL (0.6-1.3); POTASSIUM - SERUM 4.1 mmol/L (3.5-5.1); PROTEIN - SERUM 5.2 g/dL (6.4-8.2)
[2020-05-21 08:00] VITALS: BP 189/75
--- NOTE | 2020-05-21 13:01 | HP ---
PATIENT: CAITLIN CALIX MEDICAL RECORD: [id number] ACCOUNT: [id number] LOCATION:D. D.2103 : [birth year] ADMISSION DATE: 05/20/20 PCP: PERCY HINKLE MD HISTORY AND PHYSICAL EXAMINATION REASON FOR ADMISSION: Altered mental status. HISTORY OF PRESENT ILLNESS: The patient is an 89-year-old female, who was recently hospitalized for 8 days for diastolic congestive heart failure, pleural effusions, and presumed pneumonia. She was treated with diuretics, IV antibiotics, and clinically improved. She has had nausea and vomiting and unresponsive to Zofran and Phenergan, had been switched to IV Reglan low dose for 3 days and converted to oral. Her nausea quickly improved and she was discharged this morning, oriented. Apparently, after the patient got home, she began acting confused about where she was, was picking at things in the air, and was in her electric wheelchair unsure how to use it. She has used that wheelchair for multiple years. She was actually spinning in circles with it because she could not understand how to work the controls. Her caregiver called an ambulance to come, and upon their arrival, the patient leaned back in her chair with eyes rolled up into her head without loss of consciousness and had loss of bowel and bladder incontinence. Again, no seizure activity was noted. She presented to the ED in this manner and was arousable. She now is confused as to where she is, but she does know me and her niece's name. She denies headache or visual change. She denies abdominal pain or chest pain. PAST MEDICAL HISTORY: Diastolic congestive heart failure, community-acquired pneumonia, peripheral vascular disease with chronic stasis dermatitis, recent cellulitis of the left lower extremity, history of paroxysmal atrial fibrillation, history of hyponatremia in 2016, remote history of MRSA, chronic right malleolar ulcer, essential hypertension, hyperlipidemia, hypothyroidism, esophageal stricture with GERD, benign gastric polyps, osteoporosis, CAD, osteoarthritis, neuropathy of bilateral lower extremities, remote stroke, smoker, alopecia, anemia of chronic disease, history of benign carcinoid neoplasm, hiatal hernia, and then finally dementia. PAST SURGICAL HISTORY: Hysterectomy, partial thyroidectomy, appendectomy, PTCA of the left lower extremity, SFA with stent placement, esophageal dilatation times 2, cardiac catheterization in 2004 of 60% stenosis of the LAD treated medically, cholecystectomy, Black fundoplication, and sinus surgery. ALLERGIES: LASIX CAUSING HYPONATREMIA, AMOXICILLIN CAUSING RASH, PROMETHAZINE CAUSING NAUSEA AND VOMITING AND SULFA CAUSING RASH. FAMILY HISTORY: Son at 30 from pulmonary hypertension due to genetic heart condition. Father had heart disease and kidney disease. Mother had Parkinson's. Brother with heart disease. SOCIAL HISTORY: , nonsmoker, but is a remote smoker. She does not drink alcohol. She has 24-hour care. She transfers in a motorized wheelchair and will stand with assistance to transfer. Her niece is her POA. MEDICATIONS: Pacerone 200 mg at bedtime, Cardura 2 mg b.i.d., Isordil 10 mg daily, lisinopril 5 mg daily, Nitrostat 0.4 sublingual p.r.n. chest pain, pravastatin 40 mg at bedtime, aspirin 81 mg a day, Acetaminophen/Codeine #3, 2 tabs q.6 hours p.r.n. low back pain, Mirapex 1 mg p.o. at bedtime, Bumex 0.5 mg HISTORY AND PHYSICAL [id number] PLUMLEE,CAITLIN p.o. q.a.m., potassium K-Tab 10 mEq ER b.i.d., Moduretic 5/50 one p.o. q.a.m., Mucinex 600 mg b.i.d., Colace 100 mg b.i.d., Protonix 40 mg a day, levothyroxine 100 mcg p.o. q.a.m. a.c., Vitamin B 1000 units a day, and multivitamin 1 daily. REVIEW OF SYSTEMS: GENERAL: The patient denies complaint of headache. RESPIRATORY: Denies shortness of breath. CARDIAC: Denies chest pain. GASTROINTESTINAL: Denies nausea, vomiting. GENITOURINARY: Denies dysuria. Has incontinence. GYNECOLOGIC: No vaginal bleeding. ENDOCRINE: Denies polyuria, polydipsia. NEUROLOGIC: Denies headache, motor deficits currently. PSYCHIATRIC: Denies depression. PHYSICAL EXAMINATION: VITAL SIGNS: Temperature 97.9, pressure 181/88, respiratory rate is 18, pulse 67 and regular. O2 sats 96% on 2 liters. GENERAL: The patient is chronically ill appearing. Awake, but disoriented. Her eyes are clear. Oropharynx shows dry mucous membranes. NECK: Supple. Thorax shows increased dorsal kyphosis. CHEST: He has crackles in the bases bilaterally. No wheeze. She is not retracting. HEART: Regular rate. ABDOMEN: Soft, nontender. Bowel sounds are active. PELVIC: Deferred. EXTREMITIES: She has chronic distal muscle wasting in both lower extremities. She has stasis dermatitis in both lower extremities, right greater than left with some open areas and erythema of the left anterior mid tibial area. NEUROLOGIC: The patient is oriented to person, but not to place and time. No obvious motor or sensory deficits were appreciated. Gait is not testable due to disability. LABORATORY DATA: Shows a white count of 8000, H and H of 10 and 34.1, and platelet count 214,000 with left shift. Chemistry: Electrolytes are normal. BUN 26 and creatinine is 0.9; BUN and creatinine ratio of 29, and glucose 132. Magnesium low at 1.7. Ammonia less than 10. ALT is 99. Troponin negative. TSH 6.14. Urine is clear. Urine drug screen is positive for opiates, which are prescribed. INR is 1.12. IMAGING: Chest x-ray shows stable, [id number] pleural effusions with no interval change noted. CT of the brain shows severe cerebral atrophy, pansinusitis, no acute bleed or stroke noted. ASSESSMENT: 1. Altered mental status, etiology unknown, possible seizure with bowel and bladder incontinence. 2. Cerebral atrophy/dementia. 3. Diastolic dysfunction. 4. Pleural effusions. 5. COPD. 6. Hypomagnesemia. 7. Azotemia diuretic-induced. 8. Hypertension. HISTORY AND PHYSICAL [id number] CAITLIN CALIX PLAN: Discussed with the niece who gave me most of the history. We will place the patient back in the hospital. Cardiac monitoring. I have neurology consultation tomorrow and Dr. Trammell is available. She is DNR currently. We will not do aggressive workup at this time unless indicated. Replace magnesium and supplemental O2. Hold antibiotics currently. TRANSINT:[id number] Voice Confirmation ID: [id number] DOCUMENT ID: [id number] PERCY HINKLE MD at 1301 CC: [id number] DICTATION DATE: 05/20/201717 GLASS MOULD CLEANER: 05/20/202122 ADM IN [facility] [address] [place] [address]
--- NOTE | 2020-05-21 13:08 | MORECARE ---
CASE MANAGEMENT DISCHARGE SUMMARY PATIENT: CAITLIN CALIX UNIT: [id number] ADM DATE: 05/20/20 AGE: 89 : 31 SEX: F ROOM/BED: D.2103 AUTHOR: ROXANN MARKS PHYSICIAN: REFERRING PHYSICIAN: PERCY HINKLE MD DATE OF SERVICE: 05/21/20 Discharge Plan Patient Name: CAITLIN CALIX Facility: [facility]:[place] : 1930 Planned Disposition: Home with Home Health Anticipated Discharge Date: Discharge Date: Expected LOS: 0 Initial Reviewer: [email or web address] Initial Review Date: 05/20/2020 Generated: 05/21/20 2:08 pm Patient Name: CAITLIN CALIX Page 42597 at 1308 All edits/amendments must be made on the electronic document DICTATION DATE: 05/21/20 1308 FUNDRAISING SALE REPRESENTATIVE: MARICARMEN 05/21/20 1308 RPT#: [id number] DC DATE: STATUS: ADM IN [facility] [address] [place] [address] END OF REPORT
[2020-05-21 14:24] LABS: BILIRUBIN NEGATIVE (NEGATIVE); GLUCOSE NEGATIVE (NEGATIVE); KETONE NEGATIVE (NEGATIVE); NITRITE NEGATIVE (NEGATIVE); UROBILINOGEN NORMAL (NORMAL)
[2020-05-21 15:00] VITALS: BP 146/72
[2020-05-21 20:00] VITALS: BP 162/77
--- NOTE | 2020-05-21 20:00 | NUR ---
EYES CLOSED RESTIGN IN BED, SEE SHIFT ASSESSENT, CALL LIGHT IN REACH
[2020-05-22] VITALS: BP 163/84
[2020-05-22 04:00] VITALS: BP 183/67
[2020-05-22 06:20] LABS: CALC OSMOLALITY 277 mosm/kg (275-300); CALCIUM 9.6 mg/dL (8.5-10.1); CARBON DIOXIDE 37.6 mmol/L (21.0-32.0); CHLORIDE - SERUM 99 mmol/L (98-107); CREATININE - SERUM 0.7 mg/dL (0.6-1.3); GLUCOSE 107 mg/dL (74-106); POTASSIUM - SERUM 4.3 mmol/L (3.5-5.1); SODIUM 138 mmol/L (136-145); UREA NITROGEN 18 mg/dL (7-18); eGFR NON AFRICAN AMERICAN 83 mL/min (90-120)
[2020-05-22 08:00] VITALS: BP 178/74
[2020-05-22 11:00] VITALS: BP 138/61
--- NOTE | 2020-05-22 14:31 | NUR ---
PATIENT RESTING WITH FAMILY AT BEDSIDE. DENIES PAIN OR NEEDS. BED LOW POSITION, CALL LIGHT IN REACH, FALL PRECAUTIONS IN PLACE. WILL CONTINUE TO MONITOR.
--- NOTE | 2020-05-22 15:29 | MORECARE ---
CASE MANAGEMENT DISCHARGE SUMMARY PATIENT: CAITLIN CALIX UNIT: [id number] ADM DATE: 05/20/20 AGE: 89 : 31 SEX: F ROOM/BED: D.2103 AUTHOR: ROXANN MARKS PHYSICIAN: REFERRING PHYSICIAN: PERCY HINKLE MD DATE OF SERVICE: 05/22/20 Discharge Plan Patient Name: CAITLIN CALIX Facility: [facility]:[place] : 1930 Planned Disposition: Hospice Home Anticipated Discharge Date: 05/22/20 Discharge Date: Expected LOS: 2 Initial Reviewer: [email or web address] Initial Review Date: 05/20/2020 Generated: 05/22/20 4:29 pm Last DP export: 05/21/20 12:08 p Patient Name: CAITLIN CALIX Page 01875 at 1529 All edits/amendments must be made on the electronic document DICTATION DATE: 05/22/20 1529 DEVICE ENGINEER: MARICARMEN 05/22/20 1529 RPT#: [id number] DC DATE: STATUS: ADM IN [facility] [address] [place] [address] END OF REPORT
--- NOTE | 2020-05-22 16:06 | MORECARE ---
CASE MANAGEMENT DISCHARGE SUMMARY PATIENT: CAITLIN CALIX UNIT: [id number] ADM DATE: 05/20/20 AGE: 89 : 31 SEX: F ROOM/BED: D.2103 AUTHOR: ROXANN MARKS PHYSICIAN: REFERRING PHYSICIAN: PERCY HINKLE MD DATE OF SERVICE: 05/22/20 Discharge Plan Patient Name: CAITLIN CALIX Facility: [facility]:[place] : 1930 Planned Disposition: Hospice Home Anticipated Discharge Date: 05/22/20 Discharge Date: Expected LOS: 2 Initial Reviewer: [email or web address] Initial Review Date: 05/20/2020 Generated: 05/22/20 5:05 pm External Providers External Provider: OTHER-OTHER Next Contact Date: Service Request Date: Service Type: Resolution: Reviewer: Comments: Last DP export: 05/22/20 2:29 p Patient Name: CAITLIN CALIX Page 68699 at 1606 All edits/amendments must be made on the electronic document DICTATION DATE: 05/22/20 1605 TURBO ELECTRIC OPERATOR: MARICARMEN 05/22/20 1605 RPT#: [id number] ND DATE: STATUS: ADM IN [facility] [address] [place] [address] END OF REPORT
[2020-05-22 16:19] VITALS: BP 120/68
--- NOTE | 2020-05-22 16:36 | MORECARE ---
CASE MANAGEMENT DISCHARGE SUMMARY PATIENT: CAITLIN CALIX UNIT: [id number] ADM DATE: 05/20/20 AGE: 89 : 31 SEX: F ROOM/BED: D.2103 AUTHOR: ROXANN MARKS PHYSICIAN: REFERRING PHYSICIAN: PERCY HINKLE MD DATE OF SERVICE: 05/22/20 Discharge Plan Patient Name: CAITLIN CALIX Facility: [facility]:[place] : 1930 Planned Disposition: Hospice Medical Facility Anticipated Discharge Date: 05/22/20 Discharge Date: Expected LOS: 2 Initial Reviewer: [email or web address] Initial Review Date: 05/20/2020 Generated: 05/22/20 5:35 pm Comments DCP- Discharge Planning Updated by [email or web address]: Harriett Chaparro on 05/22/20 3:[address] CM contacted patient's niece, Yaquelin Carranza ([phone]), to discuss the order for [facility]. Patient's niece is in agreement with [facility] GIP @[facility]. Patient's Healthcare Proxy is João Ruiz (financial institution manager for 30+ years) [phone] and he will be at the hospital 05/23 around 0930. CM contacted Natanael Rogers, hospice superintendent ([phone]) with [facility], for the evaluation and admit. CM faxed the appropriate paperwork to Natanael @[phone]. [facility] phone #[phone]. Await evaluation. Last DP export: 05/22/20 3:06 p Patient Name: CAITLIN CALIX Page [id number] at 1636 All edits/amendments must be made on the electronic document DICTATION DATE: 05/22/201634 RN CIRCULATING: MARICARMEN 05/22/201634 RPT#: [id number] DC DATE: STATUS: ADM IN [facility] [address] [place] [address] END OF REPORT
--- NOTE | 2020-05-22 16:44 | MORECARE ---
CASE MANAGEMENT DISCHARGE SUMMARY PATIENT: CAITLIN CALIX UNIT: [id number] ADM DATE: 05/20/20 AGE: 89 : 31 SEX: F ROOM/BED: D.2103 AUTHOR: ROXANN MARKS PHYSICIAN: REFERRING PHYSICIAN: PERCY HINKLE MD DATE OF SERVICE: 05/22/20 Discharge Plan Patient Name: CAITLIN CALIX Facility: [facility]:[place] : 1930 Planned Disposition: Hospice Medical Facility Anticipated Discharge Date: 05/22/20 Discharge Date: Expected LOS: 2 Initial Reviewer: [email or web address] Initial Review Date: 05/20/2020 Generated: 05/22/20 5:43 pm Comments DCP- Discharge Planning Updated by [email or web address]: Harriett Chaparro on 05/22/20 3:[address] CM contacted patient's niece, Yaquelin Carranza ([phone]), to discuss the order for [facility]. Patient's niece is in agreement with [facility] GIP @[facility]. Patient's Healthcare Proxy is João Ruiz (financial management for 30+ years) [phone] and he will be at the hospital 05/23 around 0930. CM contacted Natanael Rogers, material liaison ([phone]) with [facility], for the evaluation and admit. CM faxed the appropriate paperwork to Natanael @[phone]. [facility] phone #[phone]. Await evaluation. Last DP export: 05/22/20 3:06 p Patient Name: CAITLIN CALIX Page 11540 at 1644 All edits/amendments must be made on the electronic document DICTATION DATE: 05/22/201642 GOLF BALL WINDER: MARICARMEN 05/22/201642 RPT#: [id number] DC DATE: STATUS: ADM IN [facility] [address] [place] [address] END OF REPORT
--- NOTE | 2020-05-22 17:06 | NUR ---
PATIENT IN BED, WAITING ON FAMILY TO RETURN TO EAT DINNER. DENIES NEEDS OR PAIN. WILL CONTINUE TO MONITOR.
[2020-05-22 19:00] VITALS: BP 108/54
--- NOTE | 2020-05-23 00:30 | NUR ---
TAKING OVER PATIENT CARE, PATIENT LAYING IN BED IN LOW FOWLERS POSITION, EYES CLOSED, BREATHING SHALOW BUT EVEN, NO S/SX OF DISTRESS AT THIS TIME. RIGHT HAND PIV WITH FLUIDS RUNNING, WEARING NASAL CANNUNLA WITH O2 AT 2L. NO S/SX OF DISTRESS AT THIS TIME. CALL LIGHT WITHIN REACH AND BED IN LOWEST LOCKED POSITION.
[2020-05-23 00:32] VITALS: BP 134/59
[2020-05-23 03:19] VITALS: BP 116/62
[2020-05-23 08:30] VITALS: BP 159/66
--- NOTE | 2020-05-23 09:26 | NUR ---
ASSISTED WITH MEAL, NO DISTRESS NOTED, IV INFUSING, CONT TO MONITOR
[2020-05-23 11:30] VITALS: BP 125/50
[2020-05-23 15:30] VITALS: BP 146/65
[2020-05-23 20:00] VITALS: BP 121/52
--- NOTE | 2020-05-23 20:11 | MORECARE ---
CASE MANAGEMENT DISCHARGE SUMMARY PATIENT: CAITLIN CALIX UNIT: [id number] ADM DATE: 05/20/20 AGE: 89 : 31 SEX: F ROOM/BED: D.2102 AUTHOR: SELINA,DOC PHYSICIAN: REFERRING PHYSICIAN: PERCY HINKLE MD DATE OF SERVICE: 05/23/20 Discharge Plan Patient Name: CAITLIN CALIX Facility: [facility]:[place] : 1930 Planned Disposition: Hospice Medical Facility Anticipated Discharge Date: 05/22/20 Discharge Date: Expected LOS: 2 Initial Reviewer: [email or web address] Initial Review Date: 05/20/2020 Generated: 05/23/20 9:11 pm Comments DCP- Discharge Planning Updated by [id number]: She Roberts on 05/23/20 7:[address] CM notified that patient's POA João was here to speak with CM. CM met with João and after speaking with Nory @ [facility]. Nory stated that patient wasn't GIP appropriate and wanted to know if patient had declined. CM spoke with João and explained different options. João stated that at this time since patient has 24 hr caregivers with [facility] that in addition to Hospice care that patient could return home. João stated that he would speak with Yaquelin Carranza patient's niece and try to get it arranged for [facility] to start back 24 hr care and CM notified Nory with [facility] of family's wishes. Nory stated that she would speak with Yaquelin and João to see about what DME needs and when they will be ready for discharge home. CM will continue to follow and assist as needed. DCP- Discharge Planning Updated by [email or web address]: Harriett Chaparro on 05/22/20 3:[address] CM contacted patient's niece, Yaquelin Carranza ([phone]), to discuss the order for [facility]. Patient's niece is in agreement with [facility] GIP @[facility]. Patient's Healthcare Proxy is João Ruiz (director of student financial services for 30+ years) [phone] and he will be at the hospital 05/23 around 0930. CM contacted Natanael Rogers, home school liaison officer ([phone]) with [facility], for the evaluation and admit. CM faxed the appropriate paperwork to Natanael @[phone]. [facility] phone #[phone]. Await evaluation. Last DP export: 05/22/20 3:44 p Patient Name: CAITLIN CALIX Page [id number] at 2010 All edits/amendments must be made on the electronic document DICTATION DATE: 05/23/202010 ENGINEERING GEOLOGIST: MARICARMEN 05/23/202010 RPT#: [id number] DC DATE: STATUS: ADM IN [facility] [address] [place] [address] END OF REPORT
[2020-05-24] VITALS: BP 141/76
--- NOTE | 2020-05-24 00:37 | NUR ---
INITAIL ROUNDS COMPLETED AT 191 HRS. PT RESTING WITH EYES CLOSED. RESP EVEN AND REGULAR. ASSESSMENT COMPLETED AT 2019 HRS. VSS. SB PER CM HR 54. PT OPENS EYES TO VERBAL STIMULI, FOLLWS COMMANDS THEN GOES BACK TO SLEEP. IV TO RFA WITH D51/2NS AT 30CC/HR. IV PATENT. LUNGS DIMINISHED IN BASES BILAT. ABD SOFT WITH ACTIVE BS. MEPILEX NOTED TO COCCYX AND OUTER ASPECT OF L HIP. DRESSING TO BILAT LOWER LEGS CLEAN,DRY AND INTACT. FLORES DRAINING YELLOW URINE. REPOSITIONED ONTO L SIDE AT THAT TIME. PM MEDS GIVEN WITHOUT DIFFICULTY. REPORT GIVEN TO Sariah WHITE LPN AT 2305 HRS. SR UP X2, CALL LIGHT WITHIN REACH.
[2020-05-24 04:00] VITALS: BP 139/52
--- NOTE | 2020-05-24 07:20 | NUR ---
RECEIVE BEDSIDE SHIFT REPORT. PATIENT RESTING IN BED WITH EYES CLOSED. NO SIGNS OF DISTRESS. CALL LIGHT IN REACH. WILL CONTINUE PLAN OF CARE.
[2020-05-24 09:38] VITALS: BP 128/53
[2020-05-24 13:30] VITALS: BP 142/61
--- NOTE | 2020-05-24 15:38 | NUR ---
PERFORMED FLORES CARE PER PROTOCOL, URINE CONCENTRATED. PATIENT RESTING IN BED WITH EYES CLOSED. NO SIGNS OF DISTRESS. CALL LIGHT IN REACH.
--- NOTE | 2020-05-24 16:41 | MORECARE ---
CASE MANAGEMENT DISCHARGE SUMMARY PATIENT: CAITLIN CALIX UNIT: [id number] ADM DATE: 05/20/20 AGE: 89 : 31 SEX: F ROOM/BED: D.210 AUTHOR: SELINA,DOC PHYSICIAN: REFERRING PHYSICIAN: PERCY HINKLE MD DATE OF SERVICE: 05/24/20 Discharge Plan Patient Name: CAITLIN CALIX Facility: [facility]:[place] : 1930 Planned Disposition: Hospice Medical Facility Anticipated Discharge Date: 05/22/20 Discharge Date: Expected LOS: 2 Initial Reviewer: [email or web address] Initial Review Date: 05/20/2020 Generated: 05/24/20 5:41 pm Comments DCP- Discharge Planning Updated by [email or web address]: She Roberts on 05/23/20 7:[address] CM notified that patient's POA João was here to speak with CM. CM met with João and after speaking with Nory @ [facility]. Nory stated that patient wasn't GIP appropriate and wanted to know if patient had declined. CM spoke with João and explained different options. João stated that at this time since patient has 24 hr caregivers with [facility] that in addition to Hospice care that patient could return home. João stated that he would speak with Yaquelin Carranza patient's niece and try to get it arranged for [facility] to start back 24 hr care and CM notified Nory with [facility] of family's wishes. Nory stated that she would speak with Yaquelin and João to see about what DME needs and when they will be ready for discharge home. CM will continue to follow and assist as needed. DCP- Discharge Planning Updated by [email or web address]: Harriett Chaparro on 05/22/20 3:[address] CM contacted patient's niece, Yaquelin Carranza ([phone]), to discuss the order for [facility]. Patient's niece is in agreement with [facility] GIP @[facility]. Patient's Healthcare Proxy is João Ruiz (financial institution treasurer for 30+ years) [phone] and he will be at the hospital 05/23 around 0930. CM contacted Natanael Rogers, supervisor metal cans ([phone]) with [facility], for the evaluation and admit. CM faxed the appropriate paperwork to Natanael @[phone]. [facility] phone #[phone]. Await evaluation. Last DP export: 05/23/20 7:11 pm Patient Name: CAITLIN CALIX Page 98305 at 1641 All edits/amendments must be made on the electronic document DICTATION DATE: 05/24/20 1641 COUPON REDEMPTION CLERK: MARICARMEN 05/24/201640 RPT#: [id number] DC DATE: STATUS: ADM IN [facility] [address] [place] [address] END OF REPORT
--- NOTE | 2020-05-24 16:57 | MORECARE ---
CASE MANAGEMENT DISCHARGE SUMMARY PATIENT: CAITLIN CALIX UNIT: [id number] ADM DATE: 05/20/20 AGE: 89 : 31 SEX: F ROOM/BED: D.2103 AUTHOR: SELINA,DOC PHYSICIAN: REFERRING PHYSICIAN: PERCY HINKLE MD DATE OF SERVICE: 05/24/20 Discharge Plan Patient Name: CAITLIN CALIX Facility: [facility]:[place] : 1930 Planned Disposition: Hospice Medical Facility Anticipated Discharge Date: 05/22/20 Discharge Date: Expected LOS: 2 Initial Reviewer: [email or web address] Initial Review Date: 05/20/2020 Generated: 05/24/20 5:56 pm Comments DCP- Discharge Planning Updated by [email or web address]: She Roberts on 05/24/20 3:[address] CM spoke with Nory with [facility] and she stated that they have a meeting set up with family at 2 pm Friday 05/25 to admit patient. Nory stated that she will have Hospital Bed, BSC and home 02 delivered in am. CM contacted Yaquelin Carranza patient's niece and they would like patient discharged early am. [facility] [employer] Library Media Specialist will be there at 8 am to get ready for patient. Patient will need ambulance transfer home. Plan to discharge early am 05/25/20 with ambulance transport to admit to [facility] @ home. CM will continue to follow and assist as needed with discharge planning / needs. DCP- Discharge Planning Updated by [id number]: She Roberts on 05/23/20 7:[address] CM notified that patient's POA João was here to speak with CM. CM met with João and after speaking with Nory @ [facility]. Nory stated that patient wasn't GIP appropriate and wanted to know if patient had declined. CM spoke with João and explained different options. João stated that at this time since patient has 24 hr caregivers with [facility] that in addition to Hospice care that patient could return home. João stated that he would speak with Yaquelin Carranza patient's niece and try to get it arranged for [facility] to start back 24 hr care and CM notified Nory with [facility] of family's wishes. Nory stated that she would speak with Yaquelin and João to see about what DME needs and when they will be ready for discharge home. CM will continue to follow and assist as needed. DCP- Discharge Planning Updated by [id number]: Harriett Chaparro on 05/22/20 3:[address] CM contacted patient's niece, Yaquelin Carranza ([phone]), to discuss the order for [facility]. Patient's niece is in agreement with [facility] G[facility] @[facility]. Patient's Healthcare Proxy is João Ruiz (financial planning advisor for 30+ years) [phone] and he will be at the hospital 05/23 around 0930. CM contacted Natanael Rogers, marketing liaison ([phone]) with [facility], for the evaluation and admit. CM faxed the appropriate paperwork to Natanael @[phone]. [facility] phone #[phone]. Await evaluation. Last DP export: 05/24/20 3:42 pm Patient Name: CAITLIN CALIX Page [phone] at 1657 All edits/amendments must be made on the electronic document DICTATION DATE: 05/24/201655 LUBE ATTENDANT: MARICARMEN 05/24/201655 RPT#: [id number] DC DATE: STATUS: ADM IN [facility] [address] [place] [address] END OF REPORT
[2020-05-24 20:56] VITALS: BP 108/49
[2020-05-25 04:00] VITALS: BP 124/55
--- NOTE | 2020-05-25 07:21 | NUR ---
RECEIVE BEDSIDE SHIFT REPORT. LYING IN BED WITH EYES CLOSED. FAMILY AT BEDSIDE. NO SIGNS OF DISTRESS. CONTINUE PLAN OF CARE AND SAFETY PRECAUTIONS.
[2020-05-25 08:00] VITALS: BP 162/58
--- NOTE | 2020-05-25 08:13 | MORECARE ---
CASE MANAGEMENT DISCHARGE SUMMARY PATIENT: CAITLIN CALIX UNIT: [id number] ADM DATE: 05/20/20 AGE: 89 : 31 SEX: F ROOM/BED: D.2102 AUTHOR: SELINA,DOC PHYSICIAN: REFERRING PHYSICIAN: PERCY HINKLE MD DATE OF SERVICE: 05/25/20 Discharge Plan Patient Name: CAITLIN CALIX Facility: [facility]:[place] : 1930 Planned Disposition: Hospice Medical Facility Anticipated Discharge Date: 05/22/20 Discharge Date: Expected LOS: 2 Initial Reviewer: [email or web address] Initial Review Date: 05/20/2020 Generated: 05/25/20 9:12 am Comments DCP- Discharge Planning Updated by [email or web address]: Lidia Torres on 05/25/20 7:[address] Patient Name: CAITLIN CALIX Encounter No: [id number] : 1930 Primary Insurance: MEDICARE A & B Anticipated DC Date: 05-22-2020 Planned Disposition: Hospice Medical Facility External Planned Provider: : DCP follow-up note: CM met with patient about dc. Pt is going home with [facility] and would like information about assistance with meals. CM called area on aging at [phone] to set up meals on wheels. Cm left message for them to call CM and/or the patient. CM left number with the patient as well. Lidia Torres DCP- Discharge Planning Updated by [id number]: She Roberts on 05/24/20 3:[address] CM spoke with Nory with [facility] and she stated that they have a meeting set up with family at 2 pm Friday 05/25 to admit patient. Nory stated that she will have Hospital Bed, BSC and home 02 delivered in am. CM contacted Yaquelin Carranza patient's niece and they would like patient discharged early am. [facility] Wheel And Caster Repairer will be there at 8 am to get ready for patient. Patient will need ambulance transfer home. Plan to discharge early am 05/25/20 with ambulance transport to admit to [facility] @ home. CM will continue to follow and assist as needed with discharge planning / needs. DCP- Discharge Planning Updated by [id number]: She Roberts on 05/23/20 7:[address] CM notified that patient's POA João was here to speak with CM. CM met with João and after speaking with Nory @ [facility]. Nory stated that patient wasn't GIP appropriate and wanted to know if patient had declined. CM spoke with João and explained different options. João stated that at this time since patient has 24 hr caregivers with [facility] that in addition to Hospice care that patient could return home. João stated that he would speak with Yaquelin Carranza patient's niece and try to get it arranged for [facility] to start back 24 hr care and CM notified Nory with [facility] of family's wishes. Nory stated that she would speak with Yaquelin and João to see about what DME needs and when they will be ready for discharge home. CM will continue to follow and assist as needed. DCP- Discharge Planning Updated by [id number]: Harriett Chaparro on 05/22/20 3:[address] CM contacted patient's niece, Yaquelin Carranza ([phone]), to discuss the order for [facility]. Patient's niece is in agreement with [facility] GIP @[facility]. Patient's Healthcare Proxy is João Ruiz (financial consultant for 30+ years) [phone] and he will be at the hospital 05/23 around 0930. CM contacted Natanael Rogers, teachers aide ([phone]) with [facility], for the evaluation and admit. CM faxed the appropriate paperwork to Natanael @[phone]. [facility] phone #[phone]. Await evaluation. Last DP export: 05/24/20 3:57 pm Patient Name: CAITLIN CALIX Page 39197 at 0813 All edits/amendments must be made on the electronic document DICTATION DATE: 05/25/20811 BROADCAST MAINTENANCE ENGINEER: MARICARMEN 05/25/20811 RPT#: [id number] DC DATE: STATUS: ADM IN [place] [address] [place] [address] END OF REPORT
--- NOTE | 2020-05-25 11:16 | NUR ---
D/C FLORES, 400ML OF YELLOW URINE. WITHDREW 16ML OF SALINE FROM FLORES BULB. D/C IV, TIP INTACT. PATIENT TO HOME VIA AMBULANCE. REMAINS FREE FROM INJURY. NOTIFIED KRISTOPHER OF DEPARTURE.
--- NOTE | 2020-05-25 11:28 | MORECARE ---
CASE MANAGEMENT DISCHARGE SUMMARY PATIENT: CAITLIN CALIX UNIT: [id number] ADM DATE: 05/20/20 AGE: 89 : 31 SEX: F ROOM/BED: D.2103 AUTHOR: SELINADOC PHYSICIAN: REFERRING PHYSICIAN: PERCY HINKLE MD DATE OF SERVICE: 05/25/20 Discharge Plan Patient Name: CAITLIN CALIX Facility: [facility]:[place] : 1930 Planned Disposition: Hospice Medical Facility Anticipated Discharge Date: 05/22/20 Discharge Date: Expected LOS: 2 Initial Reviewer: [email or web address] Initial Review Date: 05/20/2020 Generated: 05/25/20 12:28 pm Comments DCP- Discharge Planning Updated by [email or web address]: Harriett Chaparro on 05/25/20 10:[address] CM contacted patient's niece to make her aware that patient has left via ambulance. Notified Natanael with [facility] that the patient has left the building. DCP- Discharge Planning Updated by [email or web address]: Lidia Torres on 05/25/20 7:[address] Patient Name: CAITLIN CALIX Encounter No: [id number] : 1930 Primary Insurance: MEDICARE A & B Anticipated DC Date: 05-22-2020 Planned Disposition: Hospice Medical Facility External Planned Provider: : DCP follow-up note: CM met with patient about dc. Pt is going home with [facility] and would like information about assistance with meals. CM called area on aging at [phone] to set up meals on wheels. Cm left message for them to call CM and/or the patient. CM left number with the patient as well. Lidia Torres DCP- Discharge Planning Updated by [id number]: She Roberts on 05/24/20 3:[address] CM spoke with Nory with [facility] and she stated that they have a meeting set up with family at 2 pm Friday 05/25 to admit patient. Nory stated that she will have Hospital Bed, BSC and home 02 delivered in am. CM contacted Yaquelin Carranza patient's niece and they would like patient discharged early am. [facility] Jewelry Racker will be there at 8 am to get ready for patient. Patient will need ambulance transfer home. Plan to discharge early am 05/25/20 with ambulance transport to admit to [facility] @ home. CM will continue to follow and assist as needed with discharge planning / needs. DCP- Discharge Planning Updated by [email or web address]: She Roberts on 05/23/20 7:[address] CM notified that patient's POA João was here to speak with CM. CM met with João and after speaking with Nory @ [facility]. Nory stated that patient wasn't GIP appropriate and wanted to know if patient had declined. CM spoke with João and explained different options. João stated that at this time since patient has 24 hr caregivers with [facility] that in addition to Hospice care that patient could return home. João stated that he would speak with Yaquelin Carranza patient's niece and try to get it arranged for [facility] to start back 24 hr care and CM notified Nory with [facility] of family's wishes. Nory stated that she would speak with Yaquelin and João to see about what DME needs and when they will be ready for discharge home. CM will continue to follow and assist as needed. DCP- Discharge Planning Updated by [email or web address]: Harriett Chaparro on 05/22/20 3:[address] CM contacted patient's niece, Yaquelin Carranza ([phone]), to discuss the order for [facility]. Patient's niece is in agreement with [facility] GIP @[facility]. Patient's Healthcare Proxy is João Corpieter (assistant financial accountant for 30+ years) [phone] and he will be at the hospital 05/23 around 0930. CM contacted Natanael Rogers, marketing community liaison ([phone]) with [facility], for the evaluation and admit. CM faxed the appropriate paperwork to Natanael @[phone]. [facility] phone #[phone]. Await evaluation. Last DP export: 05/25/20 7:13 am Patient Name: CAITLIN CALIX Page 80165 at 1128 All edits/amendments must be made on the electronic document DICTATION DATE: 05/25/201127 UTILITY SYSTEM REPAIRER: MARICARMEN 05/25/20 1128 RPT#: [id number] DC DATE: STATUS: ADM IN [facility] [address] [place] [address] END OF REPORT
--- NOTE | 2020-05-27 11:11 | EEG ---
PATIENT:CAITLIN CALIX MEDICAL RECORD: [id number] DATE OF : 32 LOCATION:D.210 D.M2 ADMISSION DATE: 05/20/20 REFERRING PHYSICIAN: INTERPRETING PHYSICIAN: JEREL TRAMMELL MD DATE OF SERVICE: 05/21/2020 ROOM: #2103. ORDERED BY: Dr. Trammell. CASE HISTORY: An 89-year-old female readmitted to the hospital with mental status change and poor responsiveness, suspected to be secondary to medication effect with concomitant azotemia. PROCEDURE: EEG done as a routine bedside portable recording using the standard 10-20 international electrode system. 16 channels used with 17th as EKG. Photic stimulation done as activation procedures. DESCRIPTION: EEG opens with the patient fairly responsive with the record displaying diffuse mild background slowing with best organization in the 7-8 Hz range with prominent EMG movement artifact. Frequent bilateral independent single theta slow waves were seen, some of sharp contour and rare to occasional bilateral independent single delta slow waves were seen. No epileptiform change such as spike, polyspike or spike and wave was seen. Photic stimulation did not yield a significant driving response. There was a photomyogenic or photoparoxysmal response seen. IMPRESSION: Mildly abnormal EEG with background slowing mildly more than expected for age group, which would be suggestive of encephalopathy. No focal asymmetry of amplitudes were seen. No evidence of underlying seizure disorder. TRANSINT:[id number] Voice Confirmation ID: [id number] DOCUMENT ID: [id number] JEREL TRAMMELL MD at 1111 CC: [id number] DICTATION DATE: 05/22/20 1456 WEATHER CLERK: 05/23/20 0135 DIS IN 05/25/20 [place] [id number] [place] [id number]
== END 2020-05-25 11:30 | disposition home health service (06) | DRG 70 ==
LOC: D.ER 12:29 → D.M2 14:20
PROVIDERS: Family Medicine; Psychiatry & Neurology Neurology; ADMIT Family Medicine; ATTEND Family Medicine
DX: G93.40 Encephalopathy, unspecified (principal); R40.2344 Coma scale, best motor response, flexion withdrawal, 24 hours or more after hospital admission; I50.33 Acute on chronic diastolic (congestive) heart failure; J81.1 Chronic pulmonary edema; L03.116 Cellulitis of left lower limb; L03.115 Cellulitis of right lower limb; R55 Syncope and collapse; R56.9 Unspecified convulsions; R79.89 Other specified abnormal findings of blood chemistry; J44.9 Chronic obstructive pulmonary disease, unspecified; I11.0 Hypertensive heart disease with heart failure; F03.90 Unspecified dementia, unspecified severity, without behavioral disturbance, psychotic disturbance, mood disturbance, and anxiety; G31.9 Degenerative disease of nervous system, unspecified; F02.80 Dementia in other diseases classified elsewhere, unspecified severity, without behavioral disturbance, psychotic disturbance, mood disturbance, and anxiety; Z66 Do not resuscitate; R40.2134 Coma scale, eyes open, to sound, 24 hours or more after hospital admission; R40.2244 Coma scale, best verbal response, confused conversation, 24 hours or more after hospital admission; E03.9 Hypothyroidism, unspecified; E78.5 Hyperlipidemia, unspecified; I25.10 Atherosclerotic heart disease of native coronary artery without angina pectoris; K21.9 Gastro-esophageal reflux disease without esophagitis